=== PATIENT | female | born 1975 | race Caucasian/White ===

== ENCOUNTER 2016-09-19 16:57 | Emergency (ER) | payer MEDICAID ==
--- NOTE | 2016-09-19 17:25 | ER Document Report ---
ED Medical Screen (RME) - General Stated Complaint: LEFT EYE PROBLEM Time seen by provider: 17:24 Mode of Arrival: Ambulatory Information source: Patient Notes: 41 yo non contact lenses wearer female with pink left eye, eye pain, crusty in the am's for 5 days. No drops, her pcp saw it no rx. TRAVEL OUTSIDE OF THE [place] IN LAST 30 DAYS: No - Related Data Allergies/Adverse Reactions: No Known Allergies Allergy (Verified 03/16/14 19:22) Past Medical History - Past Medical History Cardiac Medical History: Reports: Hx Hypertension Denies: Hx Coronary Artery Disease, Hx DVT, Hx Pulmonary Embolism GI Medical History: Reports: Hx Gastroesophageal Reflux Disease Psychiatric Medical History: Reports: Hx Anxiety Past Surgical History: Reports: Hx Appendectomy, Hx Hysterectomy, Hx Tubal Ligation - Immunizations Immunizations up to date: No Hx Diphtheria, Pertussis, Tetanus Vaccination: No - unsure
[2016-09-19] MEDS ORDERED: TETRACAINE HCL 0.5% OPH SOLN 2 ML OS ONE (17:26)
--- NOTE | 2016-09-19 18:14 | ER Document Report ---
ED Eye Complaint - General Chief Complaint: Redness of Eye Stated Complaint: LEFT EYE PROBLEM Mode of Arrival: Ambulatory Information source: Patient Notes: 41-year-old female presents to emergency department complaining of left eye redness over the last 5 days. Patient reports onset of left eye redness 5 days ago with associated crusting and small amount of whitish drainage. Reports soreness and irritation but denies pain. Was seen by her primary care provider 3 days ago for regular scheduled visit and informed her provider about the eye symptoms but was not prescribed any medication. Denies fever, recent illness, vision changes, headache, photophobia, or nausea/vomiting. States does not wear contact lens and denies any obvious injury or foreign body. TRAVEL OUTSIDE OF THE [place] IN LAST 30 DAYS: No - HPI Onset: Last week Eye location: Left Injury: No Quality of pain: No pain Severity: Mild Contact lenses worn: No Associated symptoms: Redness, Matting - in the AM's, Blurred vision - in the AM' s. denies: Pain, Photophobia, Orbital swelling, Foreign body sensation, Double vision, Decreased vision, Loss of vision - Related Data Allergies/Adverse Reactions: No Known Allergies Allergy (Verified 09/19/16 17:25) Past Medical History - General Information source: Patient - Social History Smoking Status: Never Smoker Chew tobacco use (# tins/day): No Frequency of alcohol use: None Drug Abuse: None Lives with: Family - 6 Family History: Reviewed & Not Pertinent, Hypertension. denies: Arthritis, CAD , CVA, DM, Hyperlipidemia, Malignancy, Thyroid Disfunction Patient has suicidal ideation: No Patient has homicidal ideation: No - Past Medical History Cardiac Medical History: Reports: Hx Hypertension Denies: Hx Coronary Artery Disease, Hx DVT, Hx Pulmonary Embolism GI Medical History: Reports: Hx Gastroesophageal Reflux Disease Psychiatric Medical History: Reports: Hx Anxiety Past Surgical History: Reports: Hx Appendectomy, Hx Hysterectomy, Hx Tubal Ligation - Immunizations Hx Diphtheria, Pertussis, Tetanus Vaccination: Yes Review of Systems - Review of Systems Constitutional: No symptoms reported EENT: See HPI Cardiovascular: No symptoms reported Respiratory: No symptoms reported Gastrointestinal: No symptoms reported Genitourinary: No symptoms reported Female Genitourinary: No symptoms reported Musculoskeletal: No symptoms reported Skin: No symptoms reported Hematologic/Lymphatic: No symptoms reported Neurological/Psychological: No symptoms reported -: Yes All other systems reviewed and negative Physical Exam - Vital signs Vitals: Temp Pulse Resp BP Pulse Ox 97.9 F 82 20 121/73 99 09/19/16 17:25 09/19/16 17:25 09/19/16 17:25 09/19/16 17:25 09/19/16 17:25 Interpretation: Normal - General General appearance: Appears well, Alert In distress: None - HEENT Head: Normocephalic, Atraumatic Eyes: Normal. No: Periorbital edema Conjunctiva: Injected - left, Purulent discharge - left. No: Icteric Cornea: Normal. No: Superficial foreign body Extraocular movements intact: Yes Eyelashes: Normal Pupils: PERRL Corrective lenses worn: Yes Lids everted for exam: bilateral: Normal Anterior chamber: Normal Fundascopic: Normal Nerve palsy: No Visual mcqueen normal: Yes Ears: Normal External canal: Normal Tympanic membrane: Normal Sinus: Normal Nasal: Normal Mouth/Lips: Normal Mucous membranes: Normal, Moist Pharynx: Normal Neck: Normal - Respiratory Respiratory status: No respiratory distress Chest status: Nontender Breath sounds: Normal Chest palpation: Normal - Cardiovascular Rhythm: Regular Heart sounds: Normal auscultation Murmur: No Pulses: Normal: Radial Normal capillary refill: Yes - Extremities General upper extremity: Normal inspection, Normal ROM General lower extremity: Normal inspection, Normal ROM, Normal weight bearing - Neurological Neuro grossly intact: Yes Cognition: Normal Orientation: AAOx4 Valery Coma Scale Eye Opening: Spontaneous Valery Coma Scale Verbal: Oriented Valery Coma Scale Motor: Obeys Commands Rangely Coma Scale Total: 15 Speech: Normal Motor strength normal: LUE, RUE, LLE, RLE Sensory: Normal - Psychological Associated symptoms: Normal affect, Normal mood - Skin Skin Temperature: Warm Skin Moisture: Dry Skin Color: Normal Course - Re-evaluation Re-evalutation: 09/19/16 18:15 Patient hemodynamically stable, in no distress, afebrile. Presentation and physical exam findings suggestive of uncomplicated likely bacterial conjunctivitis at this time. Prescribed course of Polytrim eyedrops and patient agrees with home care, follow-up with PCP, and ED return precautions. - Vital Signs Vital signs: Temp Pulse Resp BP Pulse Ox 97.9 F 82 20 121/73 99 09/19/16 17:25 09/19/16 17:25 09/19/16 17:25 09/19/16 17:25 09/19/16 17:25 Discharge - Discharge Clinical Impression: Conjunctivitis Qualifiers: Conjunctivitis type: acute Acute conjunctivitis type: bacterial Laterality: left Qualified Code(s): H10.32 - Unspecified acute conjunctivitis, left eye Condition: Stable Disposition: HOME, SELF-CARE Instructions: Conjunctivitis ([facility]), Eyedrop Use ([facility]), Antibiotic Therapy ([facility]) Additional Instructions: Follow-up with your primary care provider and Ophthalmology in 1-2 days as discussed. Return to the Emergency Department for any worsening symptoms or concerns. Prescriptions: Polymyxin B Sulf/Trimethoprim [Polytrim Eye Drops] 1 drop OS Q4H 7 Days
[2016-09-19 19:45] VITALS: BP 124/72
== END 2016-09-19 19:19 | disposition home or self-care (01) ==
LOC: ER 16:57
DX: H10.32 Unspecified acute conjunctivitis, left eye (principal); B96.89 Other specified bacterial agents as the cause of diseases classified elsewhere; I10 Essential (primary) hypertension
CPT/HCPCS: 99282

== ENCOUNTER 2016-09-24 22:29 | Emergency (ER) | payer MEDICAID ==
--- NOTE | 2016-09-25 01:09 | ER Document Report ---
ED Eye Complaint - General Chief Complaint: Eye Problem Stated Complaint: EYE PAIN Time seen by provider: 01:09 Mode of Arrival: Ambulatory Information source: Patient TRAVEL OUTSIDE OF THE [place] IN LAST 30 DAYS: No - HPI Patient complains to provider of: right eye redness and drainage Onset: Other - 2-3 days Eye location: Right Injury: No Associated symptoms: Redness, Matting Notes: Patient is a 41-year-old female presenting to the emergency room complaining of right eye redness, swelling, drainage that's been going on for the past 2-3 days , she was previously seen in this ER on the eighth and diagnosed with conjunctivitis of the left eye, which has since resolved but now having similar symptoms in the right eye, states she attempted to use the Polytrim drops that were previously prescribed but they did not help this time - Related Data Allergies/Adverse Reactions: No Known Allergies Allergy (Verified 09/19/16 17:25) Past Medical History - General Information source: Patient - Social History Smoking Status: Never Smoker Frequency of alcohol use: None Drug Abuse: None Family History: Reviewed & Not Pertinent, Hypertension. denies: Arthritis, CAD , CVA, DM, Hyperlipidemia, Malignancy, Thyroid Disfunction - Past Medical History Cardiac Medical History: Reports: Hx Hypertension Denies: Hx Coronary Artery Disease, Hx DVT, Hx Pulmonary Embolism Renal/ Medical History: Denies: Hx Peritoneal Dialysis GI Medical History: Reports: Hx Gastroesophageal Reflux Disease Psychiatric Medical History: Reports: Hx Anxiety Past Surgical History: Reports: Hx Appendectomy, Hx Hysterectomy, Hx Tubal Ligation - Immunizations Immunizations up to date: No Hx Diphtheria, Pertussis, Tetanus Vaccination: Yes Review of Systems - Review of Systems Constitutional: No symptoms reported EENT: Eye discharge, Tearing, Other - eye redness Cardiovascular: No symptoms reported Respiratory: No symptoms reported Gastrointestinal: No symptoms reported Genitourinary: No symptoms reported Female Genitourinary: No symptoms reported Musculoskeletal: No symptoms reported Skin: No symptoms reported Hematologic/Lymphatic: No symptoms reported Neurological/Psychological: No symptoms reported -: Yes All other systems reviewed and negative Physical Exam - Vital signs Vitals: Temp Pulse Resp BP Pulse Ox 98.2 F 81 20 118/96 H 96 09/24/16 22:39 09/24/16 22:39 09/24/16 22:39 09/24/16 22:39 09/24/16 22:39 Interpretation: Normal - General General appearance: Appears well In distress: None Notes: - General General appearance: Appears well, Alert In distress: None - HEENT Head: Normocephalic, Atraumatic Eyes: Normal Conjunctiva: Injected, tearing, purulent discharge Extraocular movements intact: Yes Eyelashes: Normal Pupils: PERRL - Respiratory Respiratory status: No respiratory distress - Cardiovascular Rhythm: Regular - Abdominal Inspection: Normal - Back Back: Normal - Extremities General upper extremity: Normal inspection General lower extremity: Normal inspection - Neurological Neuro grossly intact: Yes Orientation: AAOx4 Valery Coma Scale Eye Opening: Spontaneous Valery Coma Scale Verbal: Oriented [place] Coma Scale Motor: Obeys Commands Valery Coma Scale Total: 15 - Psychological Associated symptoms: Normal affect, Normal mood - Skin Skin Temperature: Warm Skin Moisture: Dry Skin Color: Normal Course - Re-evaluation Re-evalutation: 09/25/16 01:13 Patient symptoms consistent with conjunctivitis, she was previously using Polytrim drops which don't seem to be helping, therefore drops will be changed to Ciloxan, she will be given a dose in the ER and the drops to go for home use , with instructions for follow-up or return if symptoms worsen, patient acknowledges understanding and agreement with this plan - Vital Signs Vital signs: Temp Pulse Resp BP Pulse Ox 98.2 F 81 20 118/96 H 96 09/24/16 22:39 09/24/16 22:39 09/24/16 22:39 09/24/16 22:39 09/24/16 22:39 Discharge - Discharge Clinical Impression: Conjunctivitis Qualifiers: Conjunctivitis type: acute Acute conjunctivitis type: bacterial Laterality: right Qualified Code(s): H10.31 - Unspecified acute conjunctivitis, right eye Condition: Stable Disposition: HOME, SELF-CARE Instructions: Eyedrop Use ([facility]), Conjunctivitis ([facility]) Additional Instructions: Follow up with your primary care provider in one to 2 days. Return to the emergency room immediately if symptoms worsen or any additional concerns.
[2016-09-25] MEDS ORDERED: CIPROFLOXACIN HCL 0.3% OPH SOLN 2.5 ML OD ONE (01:11)
[2016-09-25 01:35] VITALS: BP 132/68
== END 2016-09-25 01:34 | disposition home or self-care (01) ==
LOC: ER 22:29
DX: H10.31 Unspecified acute conjunctivitis, right eye (principal); I10 Essential (primary) hypertension
CPT/HCPCS: 99282; J3490

== ENCOUNTER 2017-02-07 12:46 | Emergency (ER) | payer MEDICAID ==
--- NOTE | 2017-02-07 13:42 | ER Document Report ---
ED GI/ - General Chief Complaint: Trouble Voiding Stated Complaint: ABDOMINAL PAIN Time Seen by Provider: 02/07/17 13:35 Mode of Arrival: Medic Information source: Patient Notes: This is a 41-year-old female with a history of hypertension, GERD and anxiety who presents with lower abdominal discomfort and difficulty urinating. She states that when she urinates "only a dribble" will come out. She denies any fevers or chills. She denies any nausea or vomiting. She did eat to him sandwiches for breakfast this morning without difficulty. Her last bowel movement was yesterday and was normal. TRAVEL OUTSIDE OF THE [place] IN LAST 30 DAYS: No - Related Data Allergies/Adverse Reactions: No Known Allergies Allergy (Verified 09/19/16 17:25) Past Medical History - General Information source: Patient - Social History Smoking Status: Unknown if Ever Smoked Family History: Reviewed & Not Pertinent, Hypertension. denies: Arthritis, CAD , CVA, DM, Hyperlipidemia, Malignancy, Thyroid Disfunction - Past Medical History Cardiac Medical History: Reports: Hx Hypertension Denies: Hx Coronary Artery Disease, Hx DVT, Hx Pulmonary Embolism Renal/ Medical History: Denies: Hx Peritoneal Dialysis GI Medical History: Reports: Hx Gastroesophageal Reflux Disease Psychiatric Medical History: Reports: Hx Anxiety Past Surgical History: Reports: Hx Appendectomy, Hx Hysterectomy, Hx Tubal Ligation - Immunizations Immunizations up to date: No Hx Diphtheria, Pertussis, Tetanus Vaccination: Yes Review of Systems - Review of Systems Constitutional: No symptoms reported. denies: Chills, Fever EENT: No symptoms reported Cardiovascular: No symptoms reported. denies: Chest pain Respiratory: No symptoms reported. denies: Cough Gastrointestinal: See HPI, Abdominal pain. denies: Diarrhea, Nausea, Vomiting, Constipation Genitourinary: See HPI, Frequency, Urgency Musculoskeletal: No symptoms reported Skin: No symptoms reported Hematologic/Lymphatic: No symptoms reported Neurological/Psychological: No symptoms reported Physical Exam - Vital signs Vitals: Temp Pulse Resp BP Pulse Ox 98.6 F 91 16 131/86 H 94 02/07/17 12:55 02/07/17 12:55 02/07/17 12:55 02/07/17 12:55 02/07/17 12:55 - Notes Notes: PHYSICAL EXAMINATION: GENERAL: Well-appearing, well-nourished and in no acute distress. HEAD: Atraumatic, normocephalic. EYES: Pupils equal round and reactive to light, extraocular movements intact, sclera anicteric, conjunctiva are normal. ENT: nares patent, oropharynx clear without exudates. Moist mucous membranes. NECK: Normal range of motion, supple without lymphadenopathy LUNGS: Breath sounds clear to auscultation bilaterally and equal. No wheezes rales or rhonchi. HEART: Regular rate and rhythm without murmurs ABDOMEN: Soft, mild suprapubic TTP, normoactive bowel sounds. No guarding, no rebound. No masses appreciated. EXTREMITIES: Normal range of motion NEUROLOGICAL: Cranial nerves grossly intact. No gross focal motor or sensory deficits appreciated. PSYCH: Normal mood, normal affect. SKIN: Warm, Dry, normal turgor, no rashes or lesions noted. Course - Re-evaluation Re-evalutation: 02/07/17 14:21 Urinalysis is consistent with urinary tract infection. Patient is given a dose of IM Rocephin in the ER. She is instructed to take antibiotics as prescribed and follow up with PCP this week. Strict return precautions discussed. Patient comfortable with plan. - Vital Signs Vital signs: Temp Pulse Resp BP Pulse Ox 98.6 F 91 16 131/86 H 94 02/07/17 12:55 02/07/17 12:55 02/07/17 12:55 02/07/17 12:55 02/07/17 12:55 - Laboratory Laboratory results interpreted by me: 02/07/17 13:55 Urine Protein 100 H Urine Blood SMALL H Urine Urobilinogen 2.0 H Ur Leukocyte Esterase LARGE H Discharge - Discharge Clinical Impression: UTI (urinary tract infection) Qualifiers: Urinary tract infection type: site unspecified Hematuria presence: without hematuria Qualified Code(s): N39.0 - Urinary tract infection, site not specified Condition: Stable Disposition: HOME, SELF-CARE Instructions: Urinary Tract Infection ([facility]), Trimethoprim-Sulfa ([facility]) Prescriptions: Phenazopyridine HCl [Pyridium 200 mg Tablet] 200 mg PO TID PRN #6 tablet PRN Reason: Sulfamethoxazole/Trimethoprim [Bactrim Ds Tablet] 1 each PO BID #20 tablet
[2017-02-07 14:10] LABS: APPEARANCE,URINE CLOUDY; BILIRUBIN,URINE NEGATIVE (NEGATIVE); GLUCOSE, URINE NEGATIVE (NEGATIVE); KETONES,URINE NEGATIVE (NEGATIVE); LEUKOCYTE ESTERASE,URINE LARGE (NEGATIVE); NITRITE,URINE NEGATIVE (NEGATIVE); PROTEIN,URINE 100 mg/dL (NEGATIVE); URINE SPECIFIC GRAVITY 1.015
[2017-02-07] MEDS ORDERED: PHENAZOPYRIDINE HCL 200 MG TABLET PO ONE (14:17)
[2017-02-07] MEDS ORDERED: LIDOCAINE 1% INJ-PF (10 MG/ML) 30 ML SDV INFIL ONE (14:17)
[2017-02-07] MEDS ORDERED: CEFTRIAXONE INJ 1000 MG VIAL IM ONE (14:31)
[2017-02-07 15:35] VITALS: BP 129/87
== END 2017-02-07 15:00 | disposition home or self-care (01) ==
LOC: ER 12:46
DX: N39.0 Urinary tract infection, site not specified (principal); R39.198 Other difficulties with micturition; K21.9 Gastro-esophageal reflux disease without esophagitis; F41.9 Anxiety disorder, unspecified; R10.30 Lower abdominal pain, unspecified
CPT/HCPCS: 99284; 96372; 87086; 87088; 81001; 87186; J3490 ×2; J0696

== ENCOUNTER 2017-02-25 23:48 | Emergency (ER) | payer MEDICAID ==
[2017-02-26] MEDS ORDERED: IPRATROPIUM/ALBUTEROL 0.5-2.5 MG/3 ML AMPUL NEB ONE ×2 (00:13)
[2017-02-26] MEDS ORDERED: MAGNESIUM SULFATE/D5W 100 ML IV PRN (00:13)
[2017-02-26] MEDS ORDERED: NORMAL SALINE 1000 ML 1,000 ML IV ONE (00:15)
--- NOTE | 2017-02-26 00:18 | ER Document Report ---
ED Respiratory Problem - General Chief Complaint: Breathing Difficulty Stated Complaint: BREATHING DIFFICULTY Time Seen by Provider: 02/26/17 00:07 Notes: Patient is a 41-year-old female who comes emergency department for chief complaint of difficulty breathing, she comes by EMS, received a DuoNeb and 125 mg of Solu-Medrol and route, patient states she already is somewhat improved after the first treatment. Patient states that she has been coughing for 1 month, states that she worsened significantly over the past 2 days with productive sputum and increased difficulty breathing. Patient states she has episodes where she coughs so hard she vomits. She denies fever, abdominal pain , chest pain when she is not coughing, she denies smoking, stopped smoking 7 years ago. She denies history of asthma, COPD, or other respiratory abnormality. TRAVEL OUTSIDE OF THE [place] IN LAST 30 DAYS: No - Related Data Allergies/Adverse Reactions: No Known Allergies Allergy (Verified 09/19/16 17:25) Past Medical History - General Information source: Patient - Social History Smoking Status: Never Smoker Frequency of alcohol use: None Drug Abuse: None Lives with: Family Family History: Reviewed & Not Pertinent, Hypertension. denies: Arthritis, CAD , CVA, DM, Hyperlipidemia, Malignancy, Thyroid Disfunction - Past Medical History Cardiac Medical History: Reports: Hx Hypertension Denies: Hx Coronary Artery Disease, Hx DVT, Hx Pulmonary Embolism Renal/ Medical History: Denies: Hx Peritoneal Dialysis GI Medical History: Reports: Hx Gastroesophageal Reflux Disease Psychiatric Medical History: Reports: Hx Anxiety Past Surgical History: Reports: Hx Appendectomy, Hx Hysterectomy, Hx Tubal Ligation - Immunizations Immunizations up to date: No Hx Diphtheria, Pertussis, Tetanus Vaccination: Yes Review of Systems - Review of Systems Constitutional: No symptoms reported EENT: No symptoms reported Cardiovascular: No symptoms reported Respiratory: See HPI Gastrointestinal: No symptoms reported Genitourinary: No symptoms reported Female Genitourinary: No symptoms reported Musculoskeletal: No symptoms reported Skin: No symptoms reported Hematologic/Lymphatic: No symptoms reported Neurological/Psychological: No symptoms reported Physical Exam - Vital signs Vitals: Resp Pulse Ox 17 94 02/25/17 23:59 02/25/17 23:59 Interpretation: Normal - General General appearance: Alert In distress: None - HEENT Head: Normocephalic, Atraumatic Eyes: Normal Conjunctiva: Normal Extraocular movements intact: Yes Eyelashes: Normal Pupils: PERRL Mouth/Lips: Normal Mucous membranes: Normal Pharynx: Normal Neck: Normal - Respiratory Respiratory status: No respiratory distress. No: Labored, Tachypnea Chest status: Nontender Breath sounds: Decreased air movement, Nonproductive cough, Rhonchi, Wheezing - expiratory wheezes throughout Chest palpation: Normal - Cardiovascular Rhythm: Regular Heart sounds: Normal auscultation Murmur: No - Abdominal Inspection: Normal Distension: No distension Bowel sounds: Normal Tenderness: Nontender Organomegaly: No organomegaly - Back Back: Normal, Nontender - Extremities General upper extremity: Normal inspection, Nontender, Normal color, Normal ROM , Normal temperature General lower extremity: Normal inspection, Nontender, Normal color, Normal ROM , Normal temperature, Normal weight bearing. No: Nichelle's sign - Neurological Neuro grossly intact: Yes Cognition: Normal Orientation: AAOx4 Valery Coma Scale Eye Opening: Spontaneous Fay Coma Scale Verbal: Oriented Valery Coma Scale Motor: Obeys Commands Valery Coma Scale Total: 15 Speech: Normal Motor strength normal: LUE, RUE, LLE, RLE Sensory: Normal - Psychological Associated symptoms: Normal affect, Normal mood - Skin Skin Temperature: Warm Skin Moisture: Dry Skin Color: Normal Course - Re-evaluation Re-evalutation: Patient probably with loud expiratory wheezes and a few scattered rhonchi, mild hypoxia, appears mildly uncomfortable. No overt tachypnea, no labored breathing. After treatments with duo nebs, magnesium, IV fluids, patient significantly improved. Wheezing almost completely resolved. Chest x-ray unremarkable, laboratory workup unremarkable with eosinophilic shift. Patient states he feels much improved. Patient was ambulated with pulse oxygenation and averaged in the lower to mid 90s. No difficulty speaking, no labored breathing, she performed this quite well. Patient will be discharged with an inhaler, prescriptions, after discussion patient will be covered for potential pneumonia with azithromycin because of ongoing symptoms for 1 month. Patient is to follow -up with primary care and return immediately if she worsens in any way. Patient states understanding and agreement - Vital Signs Vital signs: Temp Pulse Resp BP Pulse Ox 105 H 18 131/83 H 95 02/26/17 03:39 02/26/17 04:17 02/26/17 04:17 02/26/17 04:17 - Laboratory Result Diagrams: 02/26/17 00:45 02/26/17 00:45 Laboratory results interpreted by me: 02/26/17 02/26/17 00:45 00:45 Eosinophils % 9.2 H Absolute Eosinophils 0.7 H Potassium 3.3 L Glucose 179 H Discharge - Discharge Clinical Impression: Wheezing, Shortness of breath, Bronchitis Condition: Stable Disposition: HOME, SELF-CARE Additional Instructions: Take the prednisone as directed. Use the inhaler as directed. Take the azithromycin antibiotic as prescribed. Follow up with primary care. Return if you worsen in any way - difficulty breathing, fever, or any other concerning symptoms. Prescriptions: Albuterol Sulfate [Proair HFA Inhalation Aerosol 8.5 gm MDI] 2 puff IH Q4H PRN # 1 mdi PRN Reason: Azithromycin [Zithromax 250 mg Tablet] 250 mg PO ASDIR PRN #6 tablet PRN Reason: Prednisone 20 mg PO DAILY #15 tablet
--- NOTE | 2017-02-26 00:43 | RADIOLOGY REPORT (SQ) ---
EXAM DESCRIPTION: CHEST PA/LAT COMPLETED DATE/TIME: 02/26/2017 12:23 am REASON FOR STUDY: productive cough, shortness of breath COMPARISON: 10/17/2015. EXAM PARAMETERS: NUMBER OF VIEWS: two views TECHNIQUE: Digital Frontal and Lateral radiographic views of the chest acquired. RADIATION DOSE: NA LIMITATIONS: none FINDINGS: LUNGS AND PLEURA: No opacities, masses or pneumothorax. No pleural effusion. Moderate rickie g volume. MEDIASTINUM AND HILAR STRUCTURES: No masses or contour abnormalities. HEART AND VASCULAR STRUCTURES: Heart normal size. No evidence for failure. BONES: No acute findings. Mild disc desiccation. HARDWARE: None in the chest. OTHER: No other significant finding. IMPRESSION: Moderate lung volumes, stable. Otherwise, no acute cardiopulmonary findings. TECHNICAL DOCUMENTATION: JOB ID: [id number] [employer]- All Rights Reserved
[2017-02-26 01:02] LABS: ABSOLUTE EOSINOPHILS # (AUTO) 0.7 10^3/uL (0.0-0.6); ABSOLUTE LYMPHOCYTES (AUTO) 1.7 10^3/uL (0.5-4.7); ABSOLUTE MONOCYTES (AUTO) 0.7 10^3/uL (0.1-1.4); ABSOLUTE NEUT (AUTO) 4.1 10^3/uL (1.7-8.2); BASOPHILS % (AUTO) 0.7 % (0-2); EOSINOPHILS % (AUTO) 9.2 % (0-6); HEMATOCRIT 42.3 % (36.0-47.0); HEMOGLOBIN 13.8 g/dL (12.0-15.5); HGB HCT DIFFERENCE -0.9; LYMPHOCYTES % (AUTO) 23.4 % (13-45); MEAN CORPUSCULAR HEMOGLOBIN 27.9 pg (27.0-33.4); MEAN CORPUSCULAR HGB CONC 32.7 g/dL (32.0-36.0); MEAN CORPUSCULAR VOLUME 86 fl (80-97); MONOCYTES % (AUTO) 9.7 % (3-13); RED BLOOD COUNT 4.94 10^6/uL (3.72-5.28); RED CELL DISTRIBUTION WIDTH 13.2 % (11.5-14.0); WHITE BLOOD COUNT 7.2 10^3/uL (4.0-10.5)
[2017-02-26 01:18] LABS: ALANINE AMINOTRANSFERASE 32 U/L (9-52); ALBUMIN 3.9 g/dL (3.5-5.0); ALKALINE PHOSPHATASE 79 U/L (38-126); ANION GAP 13 (5-19); ASPARTATE AMINO TRANSFERASE 18 U/L (14-36); BILIRUBIN,DIRECT 0.3 mg/dL (0.0-0.4); BILIRUBIN,TOTAL 0.6 mg/dL (0.2-1.3); BLOOD UREA NITROGEN 7 mg/dL (7-20); CALCIUM 8.7 mg/dL (8.4-10.2); CARBON DIOXIDE 22 mmol/L (22-30); CHLORIDE 103 mmol/L (98-107); CREATININE RESULT 0.93 mg/dL (0.52-1.25); GLUCOSE 179 mg/dL (75-110); POTASSIUM 3.3 mmol/L (3.6-5.0); SODIUM 138.3 mmol/L (137-145); TOTAL PROTEIN 7.4 g/dL (6.3-8.2)
[2017-02-26] MEDS ORDERED: ALBUTEROL SULFATE HFA (90 MCG/PUFF) 8 GM MDI (1 MDI/ER DISP) IH ONE (03:48)
[2017-02-26] MEDS ORDERED: HYDROCODONE/ACETAMINOPHEN 5-325 MG 6 TAB/DSPK PO PRN (03:50)
[2017-02-26 04:29] VITALS: BP 131/83
== END 2017-02-26 04:29 | disposition home or self-care (01) ==
LOC: ER 23:48
DX: J40 Bronchitis, not specified as acute or chronic (principal); R06.2 Wheezing; R06.02 Shortness of breath; Z87.891 Personal history of nicotine dependence
CPT/HCPCS: 94640 ×2; 99285; 96361; 96365; 36415; 84703; 85025; 80053; 71020; J3475; J7030; J3490; J7620

== ENCOUNTER 2017-04-01 22:04 | Emergency (ER) | payer MEDICAID ==
[2017-04-01 22:34] VITALS: BP 140/88
== END 2017-04-02 00:59 | disposition left against medical advice (07) ==
LOC: ER 22:04
DX: Z53.21 Procedure and treatment not carried out due to patient leaving prior to being seen by health care provider (principal)

== ENCOUNTER 2017-04-07 15:30 | Emergency (ER) | payer MEDICAID ==
[2017-04-07] MEDS ORDERED: PREDNISONE 20 MG TABLET PO ONE (16:09)
[2017-04-07] MEDS ORDERED: IPRATROPIUM/ALBUTEROL 0.5-2.5 MG/3 ML AMPUL NEB ONE (16:09)
--- NOTE | 2017-04-07 16:10 | ER Document Report ---
HPI - HPI Patient complains to provider of: cough Onset: Last week Onset/Duration: Persistent Quality of pain: No pain Pain Level: 0 Context: Patient presents complaining of occasionally productive cough for the past week. Patient states she has had some wheezing as well. Patient has been using inhaler at home without improvement of her symptoms. Pt denies any recent travel or immobilization. Associated Symptoms: Productive cough. denies: Chest pain, Fever Exacerbated by: Denies Relieved by: Denies Similar symptoms previously: Yes Recently seen / treated by doctor: No - ROS ROS below otherwise negative: Yes Systems Reviewed and Negative: Yes All other systems reviewed and negative - CONSTITUTIONAL Constitutional: DENIES: Fever, Chills - CARDIOVASCULAR Cardiovascular: DENIES: Chest pain - RESPIRATORY Respiratory: REPORTS: Coughing - GASTROINTESTINAL Gastrointestinal: DENIES: Abdominal Pain, Patient vomiting - REPRODUCTIVE LMP: 03/13/17 Reproductive: DENIES: : - MUSCULOSKELETAL Musculoskeletal: DENIES: Back Pain - DERM Skin Color: Normal Skin Problems: None Past Medical History - General Information source: Patient - Social History Smoking Status: Former Smoker Frequency of alcohol use: None Drug Abuse: None Occupation: none Lives with: Family Family History: Reviewed & Not Pertinent, Hypertension. denies: Arthritis, CAD , CVA, DM, Hyperlipidemia, Malignancy, Thyroid Disfunction Patient has suicidal ideation: No Patient has homicidal ideation: No - Past Medical History Cardiac Medical History: Reports: Hx Hypertension Denies: Hx Coronary Artery Disease, Hx DVT, Hx Pulmonary Embolism Renal/ Medical History: Denies: Hx Peritoneal Dialysis GI Medical History: Reports: Hx Gastroesophageal Reflux Disease Psychiatric Medical History: Reports: Hx Anxiety Past Surgical History: Reports: Hx Appendectomy, Hx Hysterectomy, Hx Tubal Ligation - Immunizations Immunizations up to date: No Hx Diphtheria, Pertussis, Tetanus Vaccination: Yes Vertical Provider Document - CONSTITUTIONAL Agree With Documented VS: Yes Exam Limitations: No Limitations General Appearance: WD/WN, No Apparent Distress - INFECTION CONTROL TRAVEL OUTSIDE OF THE [place] IN LAST 30 DAYS: No - HEENT HEENT: Atraumatic, Normal ENT Exam, Normocephalic - NECK Neck: Normal Inspection, Supple. negative: Lymphadenopathy-Left, Lymphadenopathy-Right - RESPIRATORY Respiratory: No Respiratory Distress, Chest Non-Tender, Wheezing O2 Sat by Pulse Oximetry: 98 - CARDIOVASCULAR Cardiovascular: Regular Rate, Regular Rhythm, No Murmur - BACK Back: Normal Inspection - MUSCULOSKELETAL/EXTREMETIES Musculoskeletal/Extremeties: MAEW - NEURO Level of Consciousness: Awake, Alert, Appropriate Motor/Sensory: No Motor Deficit - DERM Integumentary: Warm, Dry, No Rash Course - Re-evaluation Re-evalutation: 04/07/17 17:50 Patient with increased air movement and scattered wheezing. - Vital Signs Vital signs: Temp Pulse Resp BP Pulse Ox 97.9 F 74 24 H 114/65 98 04/07/17 15:48 04/07/17 15:48 04/07/17 15:48 04/07/17 15:48 04/07/17 15:48 - Diagnostic Test Radiology reviewed: Reports reviewed Discharge - Discharge Clinical Impression: Wheezing Upper respiratory infection Qualifiers: URI type: unspecified URI Qualified Code(s): J06.9 - Acute upper respiratory infection, unspecified Condition: Stable Disposition: HOME, SELF-CARE Additional Instructions: Return immediately for any new or worsening symptoms Followup with your primary care provider, call tomorrow to make a followup appointment Use your inhaler that you have at home as prescribed UPPER RESPIRATORY ILLNESS: You have a viral infection of the respiratory passages -- a "cold." This common infection causes nasal congestion, drainage, and often sore throat and cough. It is highly contagious. The disease usually lasts about 10 to 14 days. There is no "cure" for the viral infection -- it must run its course. If there is a complication, such as bacterial infection in the nose, sinuses, middle ear, or bronchial tubes, antibiotics may be required. The antibiotics won't affect the virus. Drink plenty of fluids. A humidifier may help. An expectorant medication or decongestant may make you more comfortable. Use acetaminophen or ibuprofen for fever or aches. See the doctor if fever persists over two days, if there is any significant worsening of your symptoms, or if you simply fail to improve as expected. BRONCHOSPASM: You have tightness in the bronchial tubes, called bronchospasm. This often occurs with bronchial infections. Allergies, inhaled chemicals, and polluted or cold air can also provoke bronchospasm. It's more likely in patients with asthma in the family. Emergency treatment of bronchospasm may include adrenaline shots or bronchodilator aerosol. You may feel lightheaded and have a rapid pulse for an hour or two. Rest and get plenty of fluids. At home, we'll treat you with a bronchodilator inhaler. Antibiotics and corticosteroids may be required for some patients. Until you recover, avoid chemical fumes, dusts, pollens, and exercising in very cold or dry air. If you smoke, stop now!! If you develop a fever, increased wheezing, chest pain, or severe shortness of breath, you should contact the doctor immediately. INHALED BRONCHODILATORS: You have received a treatment of and/or prescription for an inhaled bronchodilator -- a medication which stimulates the airways in the lung to dilate. This improves the flow of air in asthma, bronchitis, and emphysema. These medicines have some similarity to adrenaline, and can cause similar side effects: shakiness, racing heart, and a sense of nervousness. These side effects decrease with time. Contact your doctor if these side effects are severe. Do not over-use the medicine. Too-frequent use of the inhaler may make it ineffective. Call your doctor if the inhaler is not controlling your symptoms at the prescribed doses. STEROID MEDICATION: You have been given an injection of or oral medicine of the cortisone/ steroid class. This medication is used to control inflammation or allergy. Stevenson t is usually only given for a short period of time, until the acute process subsides. There are usually no side effects from short-term use of cortisone-like medications. Some persons feel an increased sense of well-being and are not sleepy at bedtime. Long-term use of cortisone medications is best avoided, unless required for a severe condition. If your condition does not remit, or relapses after the course of corticosteroid medication, you should consult your physician. USE OF ACETAMINOPHEN (Tylenol): Acetaminophen may be taken for pain relief or fever control. It's much safer than aspirin, offering a wider range of "safe" dosages. It is safe during . Some brand names are Tylenol, Panadol, Datril, Anacin 3, Tempra, and Liquiprin. Acetaminophen can be repeated every four hours. The following are maximum recommended dosages: >89 pounds or adults 650 mg to 900 mg Acetaminophen can be repeated every four hours. Maximum dose not to exceed 4000 mg a day. FOLLOW-UP CARE: If you have been referred to a physician for follow-up care, call the physician s office for an appointment as you were instructed or within the next two days. If you experience worsening or a significant change in your symptoms, notify the physician immediately or return to the Emergency Department at any time for re-evaluation. Prescriptions: Benzonatate [Tessalon Perle 100 mg Capsule] 100 mg PO Q8HP PRN #20 cap PRN Reason: Prednisone [Deltasone 20 mg Tablet] 3 tab PO DAILY 5 Days Referrals: DEBBY MORALES MD [Primary Care Provider] - Follow up tomorrow
[2017-04-07] MEDS: ALBUTEROL SULFATE 0.083% NEB 2.5 MG/3 ML AMPUL NEB SCH ×2 (16:48→17:10)
--- NOTE | 2017-04-07 17:32 | RADIOLOGY REPORT (SQ) ---
EXAM DESCRIPTION: CHEST PA/LAT COMPLETED DATE/TIME: 04/07/2017 5:05 pm REASON FOR STUDY: cough COMPARISON: 02/26/2017 EXAM PARAMETERS: NUMBER OF VIEWS: two views TECHNIQUE: Digital Frontal and Lateral radiographic views of the chest acquired. RADIATION DOSE: NA LIMITATIONS: none FINDINGS: LUNGS AND PLEURA: No opacities, masses or pneumothorax. No pleural effusion. MEDIASTINUM AND HILAR STRUCTURES: No masses or contour abnormalities. HEART AND VASCULAR STRUCTURES: Heart normal size. No evidence for failure. BONES: No acute findings. HARDWARE: None in the chest. OTHER: No other significant finding. IMPRESSION: NO SIGNIFICANT RADIOGRAPHIC FINDING IN THE CHEST. TECHNICAL DOCUMENTATION: JOB ID: [id number] [employer]- All Rights Reserved
[2017-04-07 18:01] VITALS: BP 123/52
== END 2017-04-07 18:00 | disposition home or self-care (01) ==
LOC: ER 15:30
DX: J06.9 Acute upper respiratory infection, unspecified (principal); R06.2 Wheezing; R05 Cough; Z87.891 Personal history of nicotine dependence
CPT/HCPCS: 94640 ×2; 99283; 71020; J7512; J7620

== ENCOUNTER 2017-06-10 10:31 | Emergency (ER) | payer MEDICAID ==
[2017-06-10 10:57] VITALS: BP 120/78
[2017-06-10] MEDS ORDERED: ALBUTEROL SULFATE HFA (90 MCG/PUFF) 8 GM MDI (1 MDI/ER DISP) IH ONE (11:23)
--- NOTE | 2017-06-10 11:38 | ER Document Report ---
ED General - General Chief Complaint: Shortness Of Breath Stated Complaint: DIFFICULTY BREATHING Time Seen by Provider: 06/10/17 11:13 Notes: 42-year-old female presents emergency department complaining that for the past several months she has been having difficulty breathing. States that on and off for the past several months approximately every 2 weeks she will develop chest congestion and a cough as well as rhinorrhea, she will use her inhaler and that it will resolve. Patient states that several times she has been " close to having pneumonia" and would like to be checked again today to make sure this is just bronchitis. Denies fevers, admits productive cough, denies chills, denies chest pain, denies sore throat or earache. TRAVEL OUTSIDE OF THE [place] IN LAST 30 DAYS: No - Related Data Allergies/Adverse Reactions: No Known Allergies Allergy (Verified 06/10/17 10:57) Past Medical History - General Information source: Patient - Social History Smoking Status: Never Smoker Chew tobacco use (# tins/day): No Frequency of alcohol use: None Drug Abuse: None Lives with: Family Family History: Reviewed & Not Pertinent, Hypertension. denies: Arthritis, CAD , CVA, DM, Hyperlipidemia, Malignancy, Thyroid Disfunction Patient has suicidal ideation: No Patient has homicidal ideation: No - Past Medical History Cardiac Medical History: Reports: Hx Hypertension Denies: Hx Coronary Artery Disease, Hx DVT, Hx Pulmonary Embolism Renal/ Medical History: Denies: Hx Peritoneal Dialysis GI Medical History: Reports: Hx Gastroesophageal Reflux Disease Psychiatric Medical History: Reports: Hx Anxiety, Hx Depression - Anxiety Past Surgical History: Reports: Hx Appendectomy, Hx Hysterectomy, Hx Tubal Ligation - Immunizations Immunizations up to date: No Hx Diphtheria, Pertussis, Tetanus Vaccination: Yes Review of Systems - Review of Systems Constitutional: No symptoms reported. denies: Chills, Diaphoresis, Fever EENT: See HPI, Nose congestion, Nose discharge Cardiovascular: No symptoms reported Respiratory: See HPI, Cough, Wheezing -: Yes All other systems reviewed and negative Physical Exam - Vital signs Vitals: Temp Pulse Resp BP Pulse Ox 97.7 F 69 18 120/78 96 06/10/17 10:54 06/10/17 10:54 06/10/17 10:54 06/10/17 10:54 06/10/17 10:54 Interpretation: Normal - Notes Notes: GENERAL: Alert, interacts well. No acute distress. HEAD: Normocephalic, atraumatic EYES: Pupils equal, round and reactive to light, extraocular movements intact. ENT: Oral mucosa moist, tongue midline. Nares patent, no nasal septal hematoma, TMs intact. Clear rhinorrhea, cobblestoning in the posterior oropharynx NECK: Full range of motion, supple, trachea midline. LUNGS: Clear to auscultation bilaterally, n trace wheezes, no rales rhonchi, no respiratory distress. HEART: Regular rate and rhythm, no murmurs, gallops, rubs. ABDOMEN: Soft, nontender, nondistended, bowel sounds present in all 4 quadrants. EXTREMITIES: Moves all 4 extremities spontaneously, no edema, radial and dorsalis pedis pulses 2/4 bilaterally. No cyanosis. NEUROLOGICAL: Alert and oriented x3, normal speech. PSYCH: Normal mood, normal affect. SKIN: Warm, Dry, normal turgor, no rashes or lesions noted. Course - Re-evaluation Re-evalutation: 06/10/17 11:37 Consistent with allergic rhinitis, counseled regarding use of daily antihistamine such as Claritin or Zyrtec, counseled to continue using her albuterol inhaler 2 puffs every 4 hours as needed. No indication for steroids at this time as there is only mild wheezing. No indication for x-ray as her lungs are otherwise clear, no evidence of pneumonia, no respiratory compromise. Discharged home. - Vital Signs Vital signs: Temp Pulse Resp BP Pulse Ox 97.7 F 69 18 120/78 96 06/10/17 10:54 06/10/17 10:54 06/10/17 10:54 06/10/17 10:54 06/10/17 10:54 Discharge - Discharge Clinical Impression: Acute wheezy bronchitis Allergic rhinitis Qualifiers: Chronicity: acute Allergic rhinitis trigger: unspecified Allergic rhinitis seasonality: seasonal Qualified Code(s): J30.2 - Other seasonal allergic rhinitis Condition: Stable Disposition: HOME, SELF-CARE Additional Instructions: Please use your inhaler 2 puffs every 4 hours as needed for wheezing. This is your albuterol inhaler not the purple Advair Diskus inhaler. Use a daily antihistamine such as Zyrtec or Claritin. This is available over- the-counter. Follow the instructions on the box. Use it for at least a month. Return for fever or worsening of your cough.
== END 2017-06-10 11:40 | disposition home or self-care (01) ==
LOC: ER 10:31
DX: J30.2 Other seasonal allergic rhinitis (principal); J20.9 Acute bronchitis, unspecified; R05 Cough; I10 Essential (primary) hypertension; R06.2 Wheezing
CPT/HCPCS: 99284; J3490

== ENCOUNTER 2017-07-02 10:00 | Emergency (ER) | payer MEDICAID ==
[2017-07-02] MEDS ORDERED: PREDNISONE 20 MG TABLET PO ONE (10:26)
[2017-07-02] MEDS: IPRATROPIUM/ALBUTEROL 0.5-2.5 MG/3 ML AMPUL NEB SCH ×2 (10:37→11:00)
--- NOTE | 2017-07-02 10:56 | RADIOLOGY REPORT (SQ) ---
EXAM DESCRIPTION: CHEST PA/LAT COMPLETED DATE/TIME: 07/02/2017 10:45 am REASON FOR STUDY: 19, COUGH COMPARISON: 04/07/2017 EXAM PARAMETERS: NUMBER OF VIEWS: two views TECHNIQUE: Digital Frontal and Lateral radiographic views of the chest acquired. RADIATION DOSE: NA LIMITATIONS: none FINDINGS: LUNGS AND PLEURA: No opacities, masses or pneumothorax. No pleural effusion. MEDIASTINUM AND HILAR STRUCTURES: No masses or contour abnormalities. HEART AND VASCULAR STRUCTURES: Heart normal size. No evidence for failure. BONES: No acute findings. HARDWARE: None in the chest. OTHER: No other significant finding. IMPRESSION: NO SIGNIFICANT RADIOGRAPHIC FINDING IN THE CHEST. TECHNICAL DOCUMENTATION: JOB ID: [id number] [email or web address]- All Rights Reserved
--- NOTE | 2017-07-02 11:01 | ER Document Report ---
ED Respiratory Problem - General Chief Complaint: Productive Cough Stated Complaint: COUGH Time Seen by Provider: 07/02/17 10:10 Notes: 42-year-old female who presents today stating that she has had 2 months of runny nose, congestion, and cough that has been intermittent. She states yellow mucus. She denies any fevers, vomiting, chest pain, calf pain or leg swelling. She did see her primary care physician around 2 months ago and was started on albuterol and Advair. Patient states she does not smoke currently. She was a previous smoker. She denies any past medical history other than high blood pressure. TRAVEL OUTSIDE OF THE [place] IN LAST 30 DAYS: No - HPI Patient complains to provider of: Cough Onset: Other - See above Duration: Continuous Quality of pain: No pain Severity: Mild Pain Level: 1 Short of Breath: Mild Chest pain/discomfort: Center Cough: Productive Sputum amount: Small Sputum color: Yellow At home treatment: Bronchodilators, Oral steroids EMS treatments: Bronchodilators Associated symptoms: Other - See above Similar symptoms previously: Yes Recently seen / treated by doctor: No - Related Data Allergies/Adverse Reactions: No Known Allergies Allergy (Verified 06/10/17 10:57) Home Medications: Current Home Medications Fluticasone/Salmeterol [Advair 250-50 Diskus 14 Dose/Diskus] 2 puff IH PRN PRN 07/02/17 [History] Past Medical History - General Information source: Patient - Social History Smoking Status: Never Smoker Cigarette use (# per day): No Chew tobacco use (# tins/day): No Smoking Education Provided: No Frequency of alcohol use: None Drug Abuse: None Family History: Reviewed & Not Pertinent, Hypertension. denies: Arthritis, CAD , CVA, DM, Hyperlipidemia, Malignancy, Thyroid Disfunction - Past Medical History Cardiac Medical History: Reports: Hx Hypertension Denies: Hx Coronary Artery Disease, Hx DVT, Hx Pulmonary Embolism Renal/ Medical History: Denies: Hx Peritoneal Dialysis GI Medical History: Reports: Hx Gastroesophageal Reflux Disease Psychiatric Medical History: Reports: Hx Anxiety, Hx Depression - Anxiety Past Surgical History: Reports: Hx Appendectomy, Hx Hysterectomy, Hx Tubal Ligation - Immunizations Immunizations up to date: No Hx Diphtheria, Pertussis, Tetanus Vaccination: Yes Review of Systems - Review of Systems Constitutional: denies: Fever EENT: denies: Eye discharge, Nose discharge, Sinus pressure Cardiovascular: denies: Chest pain, Palpitations Respiratory: Cough, Short of breath, Wheezing. denies: Hemoptysis Gastrointestinal: denies: Vomiting Genitourinary: denies: Dysuria Musculoskeletal: denies: Leg swelling Skin: Other - no hives. denies: Rash Neurological/Psychological: Other - no slurred speech -: Yes All other systems reviewed and negative Physical Exam - Vital signs Vitals: Temp Pulse Resp BP Pulse Ox 98.8 F 90 18 147/84 H 97 07/02/17 10:06 07/02/17 10:06 07/02/17 10:06 07/02/17 10:06 07/02/17 10:06 Notes: Reviewed vital signs and nursing note as charted by RN. CONSTITUTIONAL: Alert and oriented and responds appropriately to questions. Well -appearing; well-nourished HEAD: Normocephalic; atraumatic EYES: PERRL; Conjunctivae clear, sclerae non-icteric ENT: Normal nose; bilateral nonpurulent nasal rhinorrhea; moist mucous membranes ; pharynx without lesions noted NECK: Supple without meningismus; non-tender; no cervical lymphadenopathy, no masses CARD: Regular rate and rhythm; no murmurs, no clicks, no rubs, no gallops; symmetric distal pulses RESP: Normal chest excursion without splinting or tachypnea; bilateral end expiratory wheezing with no rhonchi or rales present ABD/GI: Normal bowel sounds; non-distended; soft, non-tender BACK: The back appears normal and is non-tender to palpation EXT: Normal ROM in all joints; non-tender to palpation; no edema SKIN: Normal color for age and race; warm; dry; good turgor; capillary refill < 2 seconds; no acute lesions noted NEURO: Moves all extremities equally; Motor and sensory function intact PSYCH: The patient's mood and manner are appropriate. Grooming and personal hygiene are appropriate. Course - Re-evaluation Re-evalutation: 07/02/17 11:01 Given the history, physical examination, congestion and cough, with no chest pain, calf pain, or leg swelling, with vital signs as recorded with an initial oxygen saturation of 96% on room air, with bilateral end expiratory wheezing, I will obtain an x-ray of the chest, provide a repeat nebulizer, and reassess. We will perform an Accu-Chek and if the patient's glucose is within normal limits, we will provide a dose of steroids. I do believe ACS, pulmonary embolism, and aortic dissection to be unlikely given the above history and physical with rhinorrhea and congestion. 07/02/17 11:26 Patient states she feels better. Wheezing has improved on exam. Vital signs are stable. X-ray of the chest as recorded. I will start the patient on a short course of antibiotics with strict return precautions and follow-up with the primary care physician with a 4 day course of steroids. Chest x-ray shows normal heart, normal mediastinum, no fractures, normal lung mcqueen, no pneumothorax. - Vital Signs Vital signs: Temp Pulse Resp BP Pulse Ox 98.8 F 90 18 147/84 H 97 07/02/17 10:06 07/02/17 10:06 07/02/17 10:06 07/02/17 10:06 07/02/17 10:10 Discharge - Discharge Clinical Impression: Wheezing Acute bronchitis Qualifiers: Bronchitis organism: unspecified organism Qualified Code(s): J20.9 - Acute bronchitis, unspecified Condition: Good Disposition: HOME, SELF-CARE Additional Instructions: Please take 2 puffs of the albuterol inhaler every 4 hours for the next day and then every 6 hours as needed after that. Please follow-up with your primary care physician for reassessment and take the steroids and antibiotics as prescribed. Prescriptions: Azithromycin [Zithromax 250 mg Tablet] 250 mg PO ASDIR PRN #6 tablet PRN Reason: Prednisone [Deltasone 20 mg Tablet] 3 tab PO DAILY 5 Days tablet
[2017-07-02 11:35] VITALS: BP 120/82
== END 2017-07-02 11:35 | disposition home or self-care (01) ==
LOC: ER 10:00
DX: J20.9 Acute bronchitis, unspecified (principal); R06.2 Wheezing; R05 Cough; R09.89 Other specified symptoms and signs involving the circulatory and respiratory systems; R09.81 Nasal congestion; Z87.891 Personal history of nicotine dependence; Z79.899 Other long term (current) drug therapy
CPT/HCPCS: 94640 ×2; 99284; 82962; 71020; J7512; J7620

== ENCOUNTER 2017-07-24 18:19 | Emergency (ER) | payer MEDICAID ==
[2017-07-24] MEDS ORDERED: IPRATROPIUM/ALBUTEROL 0.5-2.5 MG/3 ML AMPUL NEB ONE (19:26)
--- NOTE | 2017-07-24 19:39 | ER Document Report ---
ED General - General Chief Complaint: Productive Cough Stated Complaint: COUGHING UP BLOOD Time Seen by Provider: 07/24/17 19:09 TRAVEL OUTSIDE OF THE [place] IN LAST 30 DAYS: No - HPI Notes: Patient is a 42-year-old female who presents the ED complaining of a dry semi- productive cough, wheezing, nasal congestion and discharge 2-3 days. Patient states that she has had a recurrence of the symptoms several times over the last several months. Patient was evaluated in June and was given breathing treatment, steroids, and antibiotics. Patient states that her symptoms mimic that of her symptoms from last month. Patient states that after she had been coughing she did have one cough that had a very scant production of thin blood seen. Patient has not had any episodes of hemoptysis since. Patient also had one episode of posttussive emesis. Patient states that she is otherwise eating and drinking without any difficulties. Patient states that she does have a nebulizer machine at home, but has not used it recently. Patient is a former smoker. She denies any IV drug use. She denies any drug allergies. Patient has a history of hypertension, anxiety, and acid reflux. Pt was eval'd for her symptoms by her PCM recently and was given an inhaler. Denies any headache, fever, neck pain, sore throat, chest pain, palpitations, syncope, shortness of breath, dyspnea, abdominal pain, nausea/diarrhea, urinary retention, dysuria, hematuria, or rash. Patient denies any diabetes, [place], PE, DVT, long distance travel, leg pains, hormone use, or diabetes. - Related Data Allergies/Adverse Reactions: No Known Allergies Allergy (Verified 07/24/17 18:24) Past Medical History - Social History Smoking Status: Former Smoker Family History: Reviewed & Not Pertinent, Hypertension. denies: Arthritis, CAD , CVA, DM, Hyperlipidemia, Malignancy, Thyroid Disfunction Patient has suicidal ideation: No Patient has homicidal ideation: No - Past Medical History Cardiac Medical History: Reports: Hx Hypertension Denies: Hx Coronary Artery Disease, Hx DVT, Hx Pulmonary Embolism Renal/ Medical History: Denies: Hx Peritoneal Dialysis GI Medical History: Reports: Hx Gastroesophageal Reflux Disease Psychiatric Medical History: Reports: Hx Anxiety, Hx Depression - Anxiety Past Surgical History: Reports: Hx Appendectomy, Hx Hysterectomy, Hx Tubal Ligation - Immunizations Immunizations up to date: No Hx Diphtheria, Pertussis, Tetanus Vaccination: Yes Review of Systems - Review of Systems Notes: REVIEW OF SYSTEMS: CONSTITUTIONAL : Denies fever, chills, or sweats. Denies recent illness. EENT: see hpi. CARDIOVASCULAR: Denies chest pain. Denies palpitations or racing or irregular heart beat. Denies ankle edema. RESPIRATORY: see hpi. Denies shortness of breath, difficulty breathing, or wheezing. GASTROINTESTINAL: Denies abdominal pain or distention. Denies nausea, vomiting , or diarrhea. Denies blood in vomitus, stools, or per rectum. Denies black, tarry stools. Denies constipation. GENITOURINARY: Denies difficulty urinating, painful urination, burning, frequency, blood in urine, or discharge. MUSCULOSKELETAL: Denies back or neck pain or stiffness. Denies joint pain or swelling. SKIN: Denies rash, lesions or sores. NEUROLOGICAL: Denies confusion or altered mental status. Denies passing out or loss of consciousness. Denies dizziness or lightheadedness. Denies headache. Denies weakness or paralysis or loss of use of either side. Denies problems with gait or speech. Denies sensory loss, numbness, or tingling. ALL OTHER SYSTEMS REVIEWED AND NEGATIVE. Dictation was performed using [employer]'s voice recognition software Physical Exam - Vital signs Vitals: Temp Pulse Resp BP Pulse Ox 98.9 F 94 22 H 111/84 96 07/24/17 18:24 07/24/17 18:24 07/24/17 18:24 07/24/17 18:24 07/24/17 18:24 Notes: PHYSICAL EXAMINATION: GENERAL: Well-appearing, well-nourished and in no acute distress. A&ox4 HEAD: Atraumatic, normocephalic. EYES: Pupils equal round and reactive to light, extraocular movements intact, sclera anicteric, conjunctiva are normal. ENT: EAC clear b/l. TM's intact b/l without erythema, fluid, or perforation. Nares patent and without discharge. oropharynx clear without exudates. No tonsilar hypertrophy or erythema. Moist mucous membranes. No sinus tenderness. NECK: Normal range of motion, supple without lymphadenopathy. No rigidity/ meningismus. LUNGS: wheezing b/l HEART: Regular rate and rhythm without murmurs, rubs, gallops. ABDOMEN: Soft, nontender, nondistended abdomen. No guarding, no rebound. No masses appreciated. Normal bowel sounds present. No CVA tenderness bilaterally. Musculoskeletal: FROM to passive/active. Strength 5+/5. No calf tenderness b/l. Extremities: No cyanosis, clubbing, or edema b/l. Peripheral pulses 2+. Capillary refill less than 3 seconds. NEUROLOGICAL: Normal speech, normal gait. Normal sensory, motor exams PSYCH: Normal mood, normal affect. SKIN: Warm, Dry, normal turgor, no rashes or lesions noted. Course - Re-evaluation Re-evalutation: 07/24/17 19:23 Patient received 125 mg of Solu-Medrol in the ambulance on her way here. Her blood glucose was 93. 07/24/17 20:30 Patient is an afebrile, well-hydrated, 42-year-old female who presents the ED with acute bronchitis versus asthma exacerbation. Vitals are stable. PE is otherwise unremarkable at this time. Well's Score of low risk. CXR unremarkable for acute pathology. Pt states that she is feeling much better and would like to go home. Patient does have a nebulizer machine along with an inhaler at home. Patient already has Solu-Medrol on board. I will send her home with a steroid taper and a Z-Ricardo. Low suspicion for any ACS, PE, pneumothorax, pericarditis, dissection, sepsis, meningitis, resp compromise, or other systemic emergent condition at this time. Conservative measures otherwise for symptoms with close monitoring. Patient is aware that her condition can change from initial presentation and she needs to monitor symptoms closely and seek medical attention with any acute changes. Recheck with your PCM this week. Return to the ED with any worsening/concerning symptoms otherwise as reviewed in discharge. Patient is in agreement. - Vital Signs Vital signs: Temp Pulse Resp BP Pulse Ox 98.9 F 94 22 H 111/84 96 07/24/17 18:24 07/24/17 18:24 07/24/17 18:24 07/24/17 18:24 07/24/17 18:24 Discharge - Discharge Clinical Impression: Acute wheezy bronchitis Condition: Stable Disposition: HOME, SELF-CARE Instructions: Bronchitis With Bronchospasm (Wheezing) ([facility]), Bronchodilators ( [facility]), Steroid Medication Additional Instructions: Maintain adequate fluid intake Take meds as directed Use inhaler and nebulizer routinely tylenol/ibuprofen as needed over the counter cold medication as needed for symptoms Humidified air may help F/u: with your PCM in 3-5 days for a recheck Return to the ED with any fever, worsening pain, chest pain, palpitations, syncope, worsening SANTOS, neck pain/stiffness, shortness of breath, wheezing, drooling, trouble swallowing/breathing, abdominal pain, n/v/d, rash, or worsening/concerning symptoms otherwise. Prescriptions: Azithromycin [Zithromax 250 mg Tablet] 250 mg PO ASDIR PRN #6 tablet PRN Reason: Prednisone [Deltasone 10 mg Tablet] 10 mg PO ASDIR PRN #21 tablet PRN Reason: Referrals: [facility] [Provider Group] - 07/27/17
--- NOTE | 2017-07-24 20:00 | RADIOLOGY REPORT (SQ) ---
EXAM DESCRIPTION: CHEST PA/LAT COMPLETED DATE/TIME: 07/24/2017 7:47 pm REASON FOR STUDY: cough COMPARISON: 07/02/2017. TECHNIQUE: Frontal and lateral radiographic views of the chest acquired. NUMBER OF VIEWS: Two view. LIMITATIONS: None. FINDINGS: LUNGS AND PLEURA: No opacities, masses or pneumothorax. No pleural effusion. MEDIASTINUM AND HILAR STRUCTURES: No masses or contour abnormalities. HEART AND VASCULAR STRUCTURES: Heart normal size. No evidence for failure. BONES: No acute findings. HARDWARE: None in the chest. OTHER: No other significant finding. IMPRESSION: NO SIGNIFICANT RADIOGRAPHIC FINDING IN THE CHEST. TECHNICAL DOCUMENTATION: JOB ID: [id number] [employer]- All Rights Reserved
[2017-07-24] MEDS ORDERED: METHYLPREDNISOLONE INJ 125 MG/2 ML SDV IM ONE (20:22)
[2017-07-24 20:44] VITALS: BP 110/82
== END 2017-07-24 20:44 | disposition home or self-care (01) ==
LOC: ER 18:19
DX: J20.9 Acute bronchitis, unspecified (principal); R04.2 Hemoptysis; R05 Cough; I10 Essential (primary) hypertension; F41.9 Anxiety disorder, unspecified; K21.9 Gastro-esophageal reflux disease without esophagitis; Z87.891 Personal history of nicotine dependence
CPT/HCPCS: 94640; 99283; 71020; J7620

== ENCOUNTER 2017-08-30 23:23 | Emergency (ER) | payer MEDICAID ==
[2017-08-31] MEDS ORDERED: DEXAMETHASONE 4 MG TABLET PO ONE (01:51)
[2017-08-31] MEDS ORDERED: IPRATROPIUM/ALBUTEROL 0.5-2.5 MG/3 ML AMPUL NEB ONE (01:51)
--- NOTE | 2017-08-31 01:56 | ER Document Report ---
ED General - General Chief Complaint: Shortness Of Breath Stated Complaint: COUGH Time Seen by Provider: 08/31/17 01:28 Notes: Patient is a 42-year-old female with a past medical history of asthma and recurrent bronchitis who presents with 3 days of nasal congestion, cough, clear sputum production and feeling short of breath. She states that she is using her Advair and albuterol inhaler at home without any significant improvement. Nothing worsens her symptoms. She denies any recorded fever. She denies any chest pain, vomiting or diarrhea. She has not seen her primary care doctor regarding today's concerns. She states this feels very similar to the last time she was seen in the emergent department. She notes that at that time her symptoms improved on steroid taper. She denies any history of DVT or pulmonary embolus. No pleuritic pain. No hemoptysis. TRAVEL OUTSIDE OF THE [place] IN LAST 30 DAYS: No - Related Data Allergies/Adverse Reactions: No Known Allergies Allergy (Verified 07/24/17 18:24) Past Medical History - General Information source: Patient - Social History Smoking Status: Never Smoker Frequency of alcohol use: None Drug Abuse: None Lives with: Family Family History: Reviewed & Not Pertinent, Hypertension. denies: Arthritis, CAD , CVA, DM, Hyperlipidemia, Malignancy, Thyroid Disfunction Patient has suicidal ideation: No Patient has homicidal ideation: No - Past Medical History Cardiac Medical History: Reports: Hx Hypertension Denies: Hx Coronary Artery Disease, Hx DVT, Hx Pulmonary Embolism Pulmonary Medical History: Reports: Hx Asthma Renal/ Medical History: Denies: Hx Peritoneal Dialysis GI Medical History: Reports: Hx Gastroesophageal Reflux Disease Psychiatric Medical History: Reports: Hx Anxiety, Hx Depression - Anxiety Past Surgical History: Reports: Hx Appendectomy, Hx Hysterectomy, Hx Tubal Ligation - Immunizations Immunizations up to date: No Hx Diphtheria, Pertussis, Tetanus Vaccination: Yes Review of Systems - Review of Systems Notes: Constitutional: Negative for fever. HENT: Negative for sore throat. Eyes: Negative for visual changes. Cardiovascular: Negative for chest pain. Respiratory: Positive for shortness of breath and cough Gastrointestinal: Negative for abdominal pain, vomiting or diarrhea. Genitourinary: Negative for dysuria. Musculoskeletal: Negative for back pain. Skin: Negative for rash. Neurological: Negative for headaches, weakness or numbness. 10 point ROS negative except as marked above and in HPI. Physical Exam - Vital signs Vitals: Temp Pulse Resp BP Pulse Ox 99.1 F 87 18 119/79 92 08/30/17 23:24 08/30/17 23:24 08/30/17 23:24 08/30/17 23:24 08/30/17 23:24 Interpretation: Hypoxic Notes: PHYSICAL EXAMINATION: GENERAL: Well-appearing, well-nourished and in no acute distress. HEAD: Atraumatic, normocephalic. EYES: Pupils equal round and reactive to light, extraocular movements intact, sclera anicteric, conjunctiva are normal. ENT: nares patent, oropharynx clear without exudates. Moist mucous membranes. NECK: Normal range of motion, supple without lymphadenopathy LUNGS: Diffuse inspiratory and expiratory wheezing in all lung mcqueen. No tachypnea or respiratory distress HEART: Regular rate and rhythm without murmurs ABDOMEN: Soft, nontender, normoactive bowel sounds. No guarding, no rebound. No masses appreciated. EXTREMITIES: Normal range of motion, no pitting or edema. No cyanosis. NEUROLOGICAL: No focal neurological deficits. Moves all extremities spontaneously and on command. PSYCH: Normal mood, normal affect. SKIN: Warm, Dry, normal turgor, no rashes or lesions noted. Course - Re-evaluation Re-evalutation: 08/31/17 01:56 Patient presents with a clinical history and exam most consistent with an acute viral bronchitis. Patient is overall well in appearance without tachypnea, hypoxemia, tachycardia, or difficulty with ambulation. Breath sounds are clear bilaterally. No fever. Patient does have additional signs of upper respiratory infection including nasal congestion, sore throat, and sinus pressure. No indication for labs or imaging. Will treat with bronchodilators, single dose of dexamethasone, and Tessalon Perles. At this time will discharge with return precautions and follow-up recommendations. Verbal discharge instructions given a the bedside and opportunity for questions given. Medication warnings reviewed. Patient is in agreement with this plan and has verbalized understanding of return precautions and the need for primary care follow-up in the next 24-72 hours. - Vital Signs Vital signs: Temp Pulse Resp BP Pulse Ox 99.1 F 87 87 H 120/77 96 08/30/17 23:24 08/30/17 23:24 08/31/17 02:06 08/31/17 02:06 08/31/17 02:06 - Diagnostic Test Radiology reviewed: Image reviewed, Reports reviewed Radiology results interpreted by me: 08/31/17 02:48 Chest x-ray no acute infiltrate pneumothorax Discharge - Discharge Clinical Impression: Bronchitis Reactive airway disease Qualifiers: Asthma severity: moderate Asthma persistence: persistent Asthma complication type: uncomplicated Qualified Code(s): J45.40 - Moderate persistent asthma, uncomplicated Condition: Good Disposition: HOME, SELF-CARE Additional Instructions: You were seen for an asthma exacerbation. Your symptoms improved with treatment here in the emergency department. However, it is very important that you return to the emergency department immediately if you began to have worsening difficulty breathing that does not respond to your normal home nebulizers. You were given a dose of a long-acting steroid here today. Begin taking cetirizine 10 mg daily. Please also follow closely with your primary care physician. you should also return to emergency department if you develop fever greater than 101, persistent cough, persistent vomiting, pass out, or any other symptoms that are concerning to you. Referrals: DEBBY MORALES MD [Primary Care Provider] - Follow up as needed
--- NOTE | 2017-08-31 02:40 | RADIOLOGY REPORT (SQ) ---
EXAM DESCRIPTION: CHEST SINGLE VIEW CLINICAL HISTORY: 42 years, Female, sob COMPARISON: None. NUMBER OF VIEWS: 1 FINDINGS: Adequate lung volumes, clear parenchyma, normal cardiac silhouette. Intact bony thorax. IMPRESSION: Normal chest radiograph. 2011 [facility] [employer]- All Rights Reserved
[2017-08-31 02:59] VITALS: BP 105/71
== END 2017-08-31 02:56 | disposition home or self-care (01) ==
LOC: ER 23:23
DX: J45.40 Moderate persistent asthma, uncomplicated (principal); R06.02 Shortness of breath; R05 Cough; R09.81 Nasal congestion; I10 Essential (primary) hypertension; J02.9 Acute pharyngitis, unspecified; J34.89 Other specified disorders of nose and nasal sinuses
CPT/HCPCS: 94640; 99284; 71010; J3490; J7620

== ENCOUNTER 2018-03-05 23:44 | Emergency (ER) | payer MEDICAID ==
[2018-03-05 23:50] VITALS: BP 124/86
--- NOTE | 2018-03-06 00:12 | ER Document Report ---
HPI - HPI Pain Level: 3 Notes: Patient is a 42-year-old female with a history of asthma who presents to the ED complaining of nasal congestion/discharge, dry nonproductive cough 10 days with development of right ear pain and any irritation in her throat 1 day. Patient states that she was evaluated 7 days ago by her primary care provider and was placed on Zithromax which she has since completed. Patient states that she has had continued symptoms with some improvement in her cough. Patient states that she is primarily just concerned about her right ear pain and the irritation in her throat. She is eating and drinking without any difficulties otherwise. Patient states that she has not been needing to use her inhaler. She is urinating normally and having normal bowel movements. Denies any drug allergies. Denies any headache, fever, neck pain, chest pain, palpitations, syncope, shortness of breath, wheeze, dyspnea, abdominal pain, nausea/vomiting/ diarrhea, urinary retention, dysuria, hematuria, or rash. - ROS Systems Reviewed and Negative: Yes All other systems reviewed and negative - REPRODUCTIVE Reproductive: DENIES: : Past Medical History - Social History Smoking Status: Unknown if Ever Smoked Family History: Reviewed & Not Pertinent, Hypertension. denies: Arthritis, CAD , CVA, DM, Hyperlipidemia, Malignancy, Thyroid Disfunction - Past Medical History Cardiac Medical History: Reports: Hx Hypertension Denies: Hx Coronary Artery Disease, Hx DVT, Hx Pulmonary Embolism Pulmonary Medical History: Reports: Hx Asthma Renal/ Medical History: Denies: Hx Peritoneal Dialysis GI Medical History: Reports: Hx Gastroesophageal Reflux Disease Psychiatric Medical History: Reports: Hx Anxiety, Hx Depression - Anxiety Past Surgical History: Reports: Hx Appendectomy, Hx Hysterectomy, Hx Tubal Ligation - Immunizations Immunizations up to date: No Hx Diphtheria, Pertussis, Tetanus Vaccination: Yes Vertical Provider Document - CONSTITUTIONAL Agree With Documented VS: Yes Notes: PHYSICAL EXAMINATION: GENERAL: Well-appearing, well-nourished and in no acute distress. A&Ox4. Answers questions appropriately. Moves comfortably w/o notable distress HEAD: Atraumatic, normocephalic. EYES: Pupils equal round and reactive to light, extraocular movements intact, sclera anicteric, conjunctiva are normal. ENT: EAC clear b/l. TM's intact b/l without erythema, fluid, or perforation. Nares patent and with clear discharge. oropharynx no erythema without exudates. No tonsilar hypertrophy without erythema or exudate. No palatine shift. Uvula midline. No tongue protrusion. No drooling, hoarseness, or airway compromise. Moist mucous membranes. No sinus tenderness. NECK: Normal range of motion, supple without lymphadenopathy. No rigidity/ meningismus. LUNGS: Breath sounds clear to auscultation bilaterally and equal. No wheezes rales or rhonchi. No retractions HEART: Regular rate and rhythm without murmurs, rubs, gallops. NEUROLOGICAL: Normal speech, normal gait. Normal sensory, motor exams PSYCH: Normal mood, normal affect. SKIN: Warm, Dry, normal turgor, no rashes or lesions noted. - INFECTION CONTROL TRAVEL OUTSIDE OF THE [place] IN LAST 30 DAYS: No Course - Re-evaluation Re-evalutation: 03/06/18 00:10 Patient is an afebrile, well-hydrated, 42-year-old female who presents to the ED with rt otalgia and acute URI, suspect viral. Vitals are acceptable. PE is otherwise unremarkable. CENTOR criteria negative. No labs or imaging warranted at this time based on H&P. Patient has no significant cardiopulmonary or immunocompromised medical conditions aside from her asthma. Patient's lungs are clear to auscultation bilaterally without tachycardia, hypoxia, or tachypnea. Patient is tolerating p.o. without any difficulties. Low suspicion for any meningitis, sepsis, peritonsillar/pharyngeal abscess, respiratory compromise, severe dehydration, or other emergent systemic condition at this time. Patient is aware this condition can change from initial presentation and she needs to monitor symptoms closely. Rx for prednisone. Conservative measures otherwise for symptoms. Recheck with your PCM in 3-5 days. Return to the ED with any worsening/concerning symptoms otherwise as reviewed in discharge. Patient is in agreement. - Vital Signs Vital signs: Temp Pulse Resp BP Pulse Ox 98.4 F 92 16 124/86 H 95 03/05/18 23:49 03/05/18 23:49 03/05/18 23:49 03/05/18 23:49 03/05/18 23:49 Discharge - Discharge Clinical Impression: Acute URI, Otalgia, right ear Condition: Stable Disposition: HOME, SELF-CARE Instructions: Upper Respiratory Illness ([facility]) Additional Instructions: Maintain adequate fluid intake Take meds as directed tylenol/ibuprofen as needed over the counter cold medication as needed for symptoms Humidified air may help Wash your hands regularly Wear a mask when coughing F/u: with your PCM in 3-5 days for a recheck Return to the ED with any fever, worsening pain, chest pain, palpitations, syncope, worsening SANTOS, neck pain/stiffness, shortness of breath, wheezing, drooling, trouble swallowing/breathing, abdominal pain, n/v/d, rash, or worsening/concerning symptoms otherwise. Prescriptions: Prednisone 20 mg PO ASDIR #18 tablet Forms: Elevated Blood Pressure Referrals: DEBBY MORALES MD [Primary Care Provider] - Follow up in 3-5 days
== END 2018-03-06 00:20 | disposition home or self-care (01) ==
LOC: ER 23:44
DX: J06.9 Acute upper respiratory infection, unspecified (principal); H92.01 Otalgia, right ear; R09.81 Nasal congestion; R09.89 Other specified symptoms and signs involving the circulatory and respiratory systems; R05 Cough; J45.909 Unspecified asthma, uncomplicated; J02.9 Acute pharyngitis, unspecified; I10 Essential (primary) hypertension
CPT/HCPCS: 99282

== ENCOUNTER 2018-06-18 11:10 | Emergency (ER) | payer MEDICAID ==
[2018-06-18] MEDS ORDERED: IPRATROPIUM/ALBUTEROL 0.5-2.5 MG/3 ML AMPUL NEB ONE ×2 (11:50→13:14)
[2018-06-18] MEDS ORDERED: PREDNISONE 20 MG TABLET PO ONE (11:51)
--- NOTE | 2018-06-18 11:53 | ER Document Report ---
ED Medical Screen (RME) - General Chief Complaint: Shortness Of Breath Stated Complaint: COUGH Time Seen by Provider: 06/18/18 11:48 Mode of Arrival: Ambulatory Information source: Patient Notes: 43-year-old female with asthma presents with complaint of shortness of breath, productive cough and coughing up blood. Patient was seen by her primary care physician 2 days prior to this visit and placed on an antibiotic. I have greeted and performed a rapid initial assessment of this patient. A comprehensive ED assessment and evaluation of the patient, analysis of test results and completion of medical decision making process we will be contacted by additional ED providers. PHYSICAL EXAMINATION: Vital signs reviewed GENERAL: Well-appearing, well-nourished and in no acute distress. LUNGS: No respiratory distress, expiratory wheezing bilaterally. Coarse breath sounds bilaterally. Musculoskeletal: Normal range of motion NEUROLOGICAL: Normal speech, normal gait. PSYCH: Normal mood, normal affect. SKIN: Warm, Dry, normal turgor, no rashes or lesions noted. TRAVEL OUTSIDE OF THE [place] IN LAST 30 DAYS: No - HPI Onset: Last week Onset/Duration: Persistent Quality of pain: Burning Associated Symptoms: Cough (productive), Shortness of breath Exacerbated by: Coughing Relieved by: Denies Similar symptoms previously: Yes Recently seen / treated by doctor: Yes - Related Data Smoking: Non-smoker Frequency of alcohol use: None Drug Abuse: None Allergies/Adverse Reactions: No Known Allergies Allergy (Verified 07/24/17 18:24) Past Medical History - Past Medical History Cardiac Medical History: Reports: Hx Hypertension Denies: Hx Coronary Artery Disease, Hx DVT, Hx Pulmonary Embolism Pulmonary Medical History: Reports: Hx Asthma Renal/ Medical History: Denies: Hx Peritoneal Dialysis GI Medical History: Reports: Hx Gastroesophageal Reflux Disease Psychiatric Medical History: Reports: Hx Anxiety, Hx Depression - Anxiety Past Surgical History: Reports: Hx Appendectomy, Hx Hysterectomy, Hx Tubal Ligation - Immunizations Immunizations up to date: No Hx Diphtheria, Pertussis, Tetanus Vaccination: Yes Physical Exam - Vital signs Vitals: Temp Pulse Resp BP Pulse Ox 98.1 F 89 18 125/78 96 06/18/18 11:14 06/18/18 11:14 06/18/18 11:14 06/18/18 11:14 06/18/18 11:14 Course - Vital Signs Vital signs: Temp Pulse Resp BP Pulse Ox 98.1 F 89 18 125/78 96 06/18/18 11:14 06/18/18 11:14 06/18/18 11:14 06/18/18 11:14 06/18/18 11:14
--- NOTE | 2018-06-18 12:58 | RADIOLOGY REPORT (SQ) ---
EXAM DESCRIPTION: CHEST 2 VIEWS COMPLETED DATE/TIME: 06/18/2018 12:45 pm REASON FOR STUDY: Shortness of breath, hemoptysis COMPARISON: 07/24/2017 and earlier EXAM PARAMETERS: NUMBER OF VIEWS: two views TECHNIQUE: Digital Frontal and Lateral radiographic views of the chest acquired. RADIATION DOSE: NA LIMITATIONS: none FINDINGS: LUNGS AND PLEURA: No opacities, masses or pneumothorax. No pleural effusion. MEDIASTINUM AND HILAR STRUCTURES: No masses or contour abnormalities. HEART AND VASCULAR STRUCTURES: Heart normal size. No evidence for failure. BONES: No acute findings. HARDWARE: None in the chest. OTHER: No other significant finding. IMPRESSION: NO ACUTE RADIOGRAPHIC FINDING IN THE CHEST. TECHNICAL DOCUMENTATION: JOB ID: [id number] [employer]- All Rights Reserved Reading location - IP/workstation name: [email or web address]
--- NOTE | 2018-06-18 13:31 | ER Document Report ---
HPI - HPI Pain Level: Denies Notes: Patient is a 43-year-old female with a history of hypertension, asthma, GERD who presents to the ED complaining of a dry semi-productive cough, nasal congestion/discharge, postnasal drip over the last month. Patient states that she did have one episode of coughing that had a small amount of blood, but has not had that over the last 1-2 days. Patient states that it occurred during a coughing fit. Patient was evaluated 2 days ago by her primary care provider and was started on an antibiotic. Patient states that she does continue to have wheezing and is not sure if the antibiotic is working or helping. She denies any drug allergies. Denies any prolonged immobilization, distance travel , recent surgery/trauma, personal cancer history, hormone use, smoking, or previous DVT/PE. Denies any headache, fever, neck pain, sore throat, chest pain , palpitations, syncope, shortness of breath, wheeze, dyspnea, abdominal pain, nausea/vomiting/diarrhea, urinary retention, dysuria, hematuria, or rash. - ROS Systems Reviewed and Negative: Yes All other systems reviewed and negative - REPRODUCTIVE Reproductive: DENIES: : - DERM Skin Color: Antoine Past Medical History - General Information source: Patient - Social History Smoking Status: Former Smoker Frequency of alcohol use: None Drug Abuse: None Family History: Reviewed & Not Pertinent, Hypertension. denies: Arthritis, CAD , CVA, DM, Hyperlipidemia, Malignancy, Thyroid Disfunction Patient has suicidal ideation: No Patient has homicidal ideation: No - Past Medical History Cardiac Medical History: Reports: Hx Hypertension Denies: Hx Coronary Artery Disease, Hx DVT, Hx Pulmonary Embolism Pulmonary Medical History: Reports: Hx Asthma Renal/ Medical History: Denies: Hx Peritoneal Dialysis GI Medical History: Reports: Hx Gastroesophageal Reflux Disease Psychiatric Medical History: Reports: Hx Anxiety, Hx Depression - Anxiety Past Surgical History: Reports: Hx Appendectomy, Hx Hysterectomy, Hx Tubal Ligation - Immunizations Immunizations up to date: No Hx Diphtheria, Pertussis, Tetanus Vaccination: Yes Vertical Provider Document - CONSTITUTIONAL Agree With Documented VS: Yes Notes: PHYSICAL EXAMINATION: GENERAL: Well-appearing, well-nourished and in no acute distress. A&Ox4. Answers questions appropriately. Moves comfortably w/o notable distress HEAD: Atraumatic, normocephalic. EYES: Pupils equal round and reactive to light, extraocular movements intact, sclera anicteric, conjunctiva are normal. ENT: EAC clear b/l. TM's intact b/l without erythema, fluid, or perforation. Nares patent and with clear discharge. oropharynx no erythema without exudates. No tonsilar hypertrophy without erythema or exudate. No palatine shift. Uvula midline. No tongue protrusion. No drooling, hoarseness, or airway compromise. Moist mucous membranes. No sinus tenderness. NECK: Normal range of motion, supple without lymphadenopathy. No rigidity/ meningismus. LUNGS: wheezing left lower. No retractions HEART: Regular rate and rhythm without murmurs, rubs, gallops. ABDOMEN: Soft, nontender, nondistended abdomen. No guarding, no rebound. No masses appreciated. Normal bowel sounds present. No CVA tenderness bilaterally. NEUROLOGICAL: Normal speech, normal gait. Normal sensory, motor exams PSYCH: Normal mood, normal affect. SKIN: Warm, Dry, normal turgor, no rashes or lesions noted. - INFECTION CONTROL TRAVEL OUTSIDE OF THE [place] IN LAST 30 DAYS: No Course - Re-evaluation Re-evalutation: 06/18/18 13:45 Patient is an afebrile, well-hydrated, 43-year-old female. I do suspect that her symptoms are secondary to an acute URI, presumed viral. CXR unremarkable. Patient is without any significant tachycardia, tachypnea, or hypoxia. Patient is nontoxic-appearing and is tolerating p.o. without any difficulties. Patient has already received 1 albuterol treatment as well as prednisone at triage. I thoroughly reviewed with patient her risk stratification score of Wells criteria (score of 1) and PERC score of 1 for her episode of hemoptysis. I reviewed d-dimer and then possible CTA options with the patient. Patient declined both stating that she will just follow up with her primary care doctor if she has recurrence or worsening symptoms. Patient is aware of the risk and benefit of this decision and that she could have a blood clot go undiagnosed and she could . DuoNeb treatment given as well today. Lung sounds improved. Lower suspicion for any ACS, PE(reviewed w. pt), pneumothorax, pericarditis, dissection, respiratory compromise, severe dehydration, sepsis, meningitis, or other systemic emergent condition at this time. Patient is aware that her condition can change from initial presentation and she needs to monitor symptoms closely and seek medical attention for any acute changes. I will send her home with a prescription for Tessalon and steroid taper. Recommend conservative measures for symptoms. Recheck with your PCM in 2-3 days. Return to the ED with any worsening/concerning symptoms otherwise as reviewed in discharge. Patient is in agreement. - Vital Signs Vital signs: Temp Pulse Resp BP Pulse Ox 98.1 F 89 18 125/78 96 06/18/18 11:14 06/18/18 11:14 06/18/18 11:14 06/18/18 11:14 06/18/18 11:14 Discharge - Discharge Clinical Impression: Acute URI Condition: Stable Disposition: HOME, SELF-CARE Instructions: Upper Respiratory Illness ([facility]) Additional Instructions: Maintain adequate fluid intake Take meds as directed tylenol/ibuprofen as needed over the counter cold medication as needed for symptoms Humidified air may help Wash your hands regularly Wear a mask when coughing F/u: with your PCM in 2-3 days for a recheck Return to the ED with any fever, worsening pain, chest pain, palpitations, syncope, worsening SANTOS, neck pain/stiffness, shortness of breath, wheezing, drooling, trouble swallowing/breathing, abdominal pain, n/v/d, rash, or worsening/concerning symptoms otherwise. Prescriptions: Benzonatate [Tessalon Perle 100 mg Capsule] 100 mg PO Q8HP PRN #15 cap PRN Reason: Prednisone 20 mg PO ASDIR #18 tablet Referrals: YOHANA LONDON MD [Primary Care Provider] - 06/21/18
[2018-06-18 13:59] VITALS: BP 138/83
== END 2018-06-18 14:05 | disposition home or self-care (01) ==
LOC: ER 11:10
DX: J06.9 Acute upper respiratory infection, unspecified (principal); I10 Essential (primary) hypertension; Z90.710 Acquired absence of both cervix and uterus
CPT/HCPCS: 94640 ×2; 99285; 71046; J7512; J7620

== ENCOUNTER 2018-08-05 22:29 | Observation (INO) | payer MEDICAID ==
[2018-08-05] MEDS ORDERED: IPRATROPIUM/ALBUTEROL 0.5-2.5 MG/3 ML AMPUL NEB ONE (23:00)
[2018-08-05] MEDS ORDERED: METHYLPREDNISOLONE INJ 125 MG/2 ML SDV IV ONE (23:00)
[2018-08-05] MEDS: MAGNESIUM SULFATE/D5W 1 GM/100 ML RTUPB IV SCH ×2 (23:11→23:40)
--- NOTE | 2018-08-05 23:25 | RADIOLOGY REPORT (SQ) ---
XR CHEST 1 VIEW HISTORY: Cough. Wheezing. COMPARISON: None. FINDINGS: Cardiomediastinal silhouette is unremarkable. The lungs are clear. No pleural effusion or pneumothorax is identified. No acute osseous findings. IMPRESSION: No acute cardiopulmonary abnormality.
[2018-08-05] MEDS ORDERED: ALBUTEROL SULFATE 0.083% NEB 2.5 MG/3 ML AMPUL NEB ONE (23:46)
--- NOTE | 2018-08-05 23:47 | ER Document Report ---
ED General - General Chief Complaint: Shortness Of Breath Stated Complaint: SHORTNESS OF BREATH Time Seen by Provider: 08/05/18 22:56 Notes: 43-year-old female with a history of asthma presents with difficulty breathing and wheezing. She does have Advair inhaler at home as well as nebulizer machine. She denies any fevers. No vomiting. She says the last 24 hours nebulizer machine just is not helping her anymore and therefore she is come to the ER. She is never been hospitalized for asthma in the past. Some congestion. TRAVEL OUTSIDE OF THE [place] IN LAST 30 DAYS: No - Related Data Allergies/Adverse Reactions: No Known Allergies Allergy (Verified 08/05/18 22:31) Past Medical History - Social History Smoking Status: Never Smoker Frequency of alcohol use: None Drug Abuse: None Family History: Reviewed & Not Pertinent, Hypertension. denies: Arthritis, CAD , CVA, DM, Hyperlipidemia, Malignancy, Thyroid Disfunction Patient has suicidal ideation: No Patient has homicidal ideation: No - Past Medical History Cardiac Medical History: Reports: Hx Hypertension Denies: Hx Coronary Artery Disease, Hx DVT, Hx Pulmonary Embolism Pulmonary Medical History: Reports: Hx Asthma Renal/ Medical History: Denies: Hx Peritoneal Dialysis GI Medical History: Reports: Hx Gastroesophageal Reflux Disease Psychiatric Medical History: Reports: Hx Anxiety, Hx Depression - Anxiety Past Surgical History: Reports: Hx Appendectomy, Hx Hysterectomy, Hx Tubal Ligation - Immunizations Immunizations up to date: No Hx Diphtheria, Pertussis, Tetanus Vaccination: Yes Review of Systems - Review of Systems Notes: My Normal Review Basic REVIEW OF SYSTEMS: CONSTITUTIONAL : Denies fever, chills, or sweats. EENT: Nasal congestion RESPIRATORY: Cough, difficulty breathing and wheezing. GASTROINTESTINAL: Denies abdominal pain. Denies nausea, vomiting, or diarrhea. MUSCULOSKELETAL: Denies neck or back pain or joint pain or swelling. SKIN: Denies rash or skin lesions. NEUROLOGICAL: Denies altered mental status or loss of consciousness. Denies headache. Denies weakness or paralysis or loss of use of either side. Denies problems with gait or speech. Denies sensory or motor loss. ALL OTHER SYSTEMS REVIEWED AND NEGATIVE. Physical Exam - Vital signs Vitals: Temp Pulse Resp BP Pulse Ox 98 F 91 30 H 129/81 H 92 08/05/18 22:31 08/05/18 22:31 08/05/18 22:31 08/05/18 22:31 08/05/18 22:31 - Notes Notes: General Appearance: Well nourished, alert, cooperative, no acute distress, no obvious discomfort. Vitals: reviewed, See vital signs table. Eyes: PERRL, EOMI, Conjuctiva clear Mouth: No decreasd moisture Throat: No tonsillar inflammation, No airway obstruction Neck: Supple, no neck tenderness Lungs: Diffuse wheezing. Rhonchorous breath sounds. Fair air exchange. Heart: Normal rate, Regular rythm, No murmur, no rub Abdomen: Normal BS, soft, No rigidity, No abdominal tenderness, No guarding, no rebound, no abdominal masses, no organomegaly Extremities: strength 5/5 in all extremities, good pulses in all extremities, no swelling or tenderness in the extremities, no edema. Neuro: speech clear, oriented x 3, normal affect, responds appropriately to questions. Course - Re-evaluation Re-evalutation: 08/05/18 23:47 On reevaluation patient still has some wheezing tightness in her lungs but it is improved in comparison to before the breathing treatments. I will give her another albuterol treatment. She is currently receiving magnesium. We will continue to reassess her to make sure she continues to improve. 08/06/18 00:58 Patient's breath sounds are almost completely clear now. She says she is feeling better. We will watch for another hour just to make sure she does not have been wheezing. She continues to do well then she will be discharged home. 08/06/18 02:08 Reevaluation patient still has a bit of wheezing but again is feeling looking improved. We will give her 1 more breathing treatment and then have her ambulate. She does well with ambulation and her pulse ox stays within normal range and I feel she will be safe to be discharged home. 08/06/18 03:48 We did attempt to ambulate the patient. Unfortunately she started wheezing and became much more tachycardic and started having difficulty breathing which is a little bit ambulation. Oxygen saturations stayed around 95 to 96% however her work of breathing increased significantly and her wheezing returned. Being that she is received several breathing treatments as well as been observed here for prolonged period time and yet she still gets short of breath with ambulation. Appropriate to admit her to observation admit for asthma exacerbation. I did discuss this with the patient and she is agreeable to this. I spoke with Dr. Urias, hospitalist, who agrees to evaluate the patient for admission. Dictation of this chart was performed using voice recognition software; therefore, there may be some unintended grammatical errors. - Vital Signs Vital signs: Temp Pulse Resp BP Pulse Ox 98 F 91 17 133/85 H 95 08/05/18 22:31 08/05/18 22:31 08/06/18 03:00 08/06/18 02:15 08/06/18 03:00 - Laboratory Result Diagrams: 08/05/18 23:20 08/05/18 23:20 Laboratory results interpreted by me: 08/05/18 08/05/18 23:20 23:20 WBC 11.6 H Eosinophils % 14.9 H Absolute Eosinophils 1.7 H Carbon Dioxide 31 H Discharge - Discharge Clinical Impression: Asthma exacerbation Qualifiers: Asthma severity: unspecified severity Asthma persistence: intermittent Qualified Code(s): J45.21 - Mild intermittent asthma with (acute) exacerbation Condition: Stable Disposition: ADMITTED OBSERVATION Admitting Provider: Hospitalist Unit Admitted: Telemetry Referrals: YOHANA LONDON MD [Primary Care Provider] - Follow up as needed
[2018-08-06] MEDS ORDERED: ALBUTEROL SULFATE 0.083% NEB 2.5 MG/3 ML AMPUL NEB ONE (02:07)
[2018-08-06 03:14] LABS: ANION GAP 7 (5-19); BLOOD UREA NITROGEN 8 mg/dL (7-20); CARBON DIOXIDE 31 mmol/L (22-30); CHLORIDE 105 mmol/L (98-107); GLUCOSE 96 mg/dL (75-110); SODIUM 143.3 mmol/L (137-145)
[2018-08-06 03:15] LABS: ABSOLUTE BASOPHILS # (AUTO) 0.1 10^3/uL (0.0-0.2); ABSOLUTE EOSINOPHILS # (AUTO) 1.7 10^3/uL (0.0-0.6); ABSOLUTE MONOCYTES (AUTO) 0.5 10^3/uL (0.1-1.4); ABSOLUTE NEUT (AUTO) 7.2 10^3/uL (1.7-8.2); BASOPHILS % (AUTO) 0.8 % (0-2); EOSINOPHILS % (AUTO) 14.9 % (0-6); HEMATOCRIT 42.8 % (36.0-47.0); HEMOGLOBIN 14.4 g/dL (12.0-15.5); LYMPHOCYTES % (AUTO) 17.6 % (13-45); MEAN CORPUSCULAR HEMOGLOBIN 28.7 pg (27.0-33.4); MEAN CORPUSCULAR HGB CONC 33.6 g/dL (32.0-36.0); MEAN CORPUSCULAR VOLUME 86 fl (80-97); MONOCYTES % (AUTO) 4.5 % (3-13); PLATELET COUNT 358 10^3/uL (150-450); RED CELL DISTRIBUTION WIDTH 13.3 % (11.5-14.0); SEGMENTED NEUTROPHILS % (AUTO) 62.2 % (42-78); TOTAL CELLS COUNTED % (AUTO) 100 %; WHITE BLOOD COUNT 11.6 10^3/uL (4.0-10.5)
[2018-08-06] MEDS ORDERED: MAG HYDROX/AL HYDROX/SIMETH SUSP 30 ML UDCUP PO PRN (03:48)
[2018-08-06] MEDS ORDERED: CHLORPHENIRAMINE MALEATE 4 MG TABLET PO ONE (03:48)
[2018-08-06] MEDS ORDERED: ACETAMINOPHEN 325 MG TABLET PO PRN (03:48)
[2018-08-06] MEDS ORDERED: IPRATROPIUM/ALBUTEROL 0.5-2.5 MG/3 ML AMPUL NEB PRN (03:48)
[2018-08-06] MEDS: HEPARIN SOD (PORCINE) 5,000 UNIT/ML 1 ML SYRINGE SUBCUT SCH ×3 (05:58→21:26)
[2018-08-06] MEDS: LANSOPRAZOLE 30 MG TAB.RAP.DR PO SCH ×2 (05:58→17:40)
[2018-08-06 06:01] LABS: HEMATOCRIT 42.1 % (36.0-47.0); HEMOGLOBIN 14.4 g/dL (12.0-15.5); MEAN CORPUSCULAR HEMOGLOBIN 28.8 pg (27.0-33.4); MEAN CORPUSCULAR HGB CONC 34.3 g/dL (32.0-36.0); MEAN CORPUSCULAR VOLUME 84 fl (80-97); PLATELET COUNT 321 10^3/uL (150-450); RED BLOOD COUNT 5.01 10^6/uL (3.72-5.28); RED CELL DISTRIBUTION WIDTH 12.8 % (11.5-14.0); WHITE BLOOD COUNT 9.2 10^3/uL (4.0-10.5)
[2018-08-06 06:12] LABS: ANION GAP 15 (5-19); BLOOD UREA NITROGEN 9 mg/dL (7-20); CALCIUM 9.2 mg/dL (8.4-10.2); CHLORIDE 105 mmol/L (98-107); GLUCOSE 181 mg/dL (75-110); POTASSIUM 3.6 mmol/L (3.6-5.0); SODIUM 139.5 mmol/L (137-145)
[2018-08-06 06:30] LABS: CARBON DIOXIDE 20 mmol/L (22-30)
[2018-08-06 07:05] LABS: ABSOLUTE LYMPHOCYTES# (MANUAL) 0.4 10^3/uL (0.5-4.7); ABSOLUTE NEUTROPHILS# (MANUAL) 8.8 10^3/uL (1.7-8.2); BASOPHILS % (MANUAL) 0 % (0-2); EOSINOPHILS % (MANUAL) 0 % (0-6); LYMPHOCYTES % (MANUAL) 4 % (13-45); MONOCYTES % (MANUAL) 0 % (3-13); PLATELET COMMENT ADEQUATE; SEGMENTED NEUTROPHILS % (MAN) 96 % (42-78); TOTAL CELLS COUNTED 100
[2018-08-06] MEDS: IPRATROPIUM/ALBUTEROL 0.5-2.5 MG/3 ML AMPUL NEB SCH ×3 (07:32→19:57)
[2018-08-06] MEDS: DOCUSATE SODIUM 100 MG CAPSULE PO SCH ×2 (09:16→17:40)
[2018-08-06] MEDS: PREDNISONE 20 MG TABLET PO SCH ×2 (09:16→17:40)
[2018-08-06] MEDS: FLUTICASONE NASAL SPRAY 50 MCG/SPRY 120 SPRAY/16 GM NASL SCH ×2 (11:28→21:26)
[2018-08-07] MEDS: IPRATROPIUM/ALBUTEROL 0.5-2.5 MG/3 ML AMPUL NEB SCH ×2 (02:15→07:54)
[2018-08-07] MEDS: HEPARIN SOD (PORCINE) 5,000 UNIT/ML 1 ML SYRINGE SUBCUT SCH (05:01)
[2018-08-07] MEDS: LANSOPRAZOLE 30 MG TAB.RAP.DR PO SCH (05:02)
[2018-08-07 05:22] LABS: ABSOLUTE LYMPHOCYTES (AUTO) 1.6 10^3/uL (0.5-4.7); ABSOLUTE MONOCYTES (AUTO) 0.7 10^3/uL (0.1-1.4); ABSOLUTE NEUT (AUTO) 12.2 10^3/uL (1.7-8.2); BASOPHILS % (AUTO) 0.1 % (0-2); EOSINOPHILS % (AUTO) 0.1 % (0-6); HEMATOCRIT 39.5 % (36.0-47.0); HEMOGLOBIN 13.5 g/dL (12.0-15.5); LYMPHOCYTES % (AUTO) 10.9 % (13-45); MEAN CORPUSCULAR HEMOGLOBIN 28.6 pg (27.0-33.4); MEAN CORPUSCULAR HGB CONC 34.2 g/dL (32.0-36.0); MEAN CORPUSCULAR VOLUME 84 fl (80-97); MONOCYTES % (AUTO) 4.9 % (3-13); PLATELET COUNT 309 10^3/uL (150-450); RED BLOOD COUNT 4.72 10^6/uL (3.72-5.28); RED CELL DISTRIBUTION WIDTH 13.2 % (11.5-14.0); TOTAL CELLS COUNTED % (AUTO) 100 %; WHITE BLOOD COUNT 14.5 10^3/uL (4.0-10.5)
[2018-08-07 05:46] LABS: ANION GAP 15 (5-19); BLOOD UREA NITROGEN 11 mg/dL (7-20); CALCIUM 9.4 mg/dL (8.4-10.2); CARBON DIOXIDE 23 mmol/L (22-30); CHLORIDE 103 mmol/L (98-107); GLUCOSE 95 mg/dL (75-110); POTASSIUM 4.2 mmol/L (3.6-5.0); SODIUM 140.5 mmol/L (137-145)
[2018-08-07] MEDS: PREDNISONE 20 MG TABLET PO SCH (10:30)
[2018-08-07] MEDS: DOCUSATE SODIUM 100 MG CAPSULE PO SCH (10:30)
[2018-08-07] MEDS: FLUTICASONE NASAL SPRAY 50 MCG/SPRY 120 SPRAY/16 GM NASL SCH (10:30)
--- NOTE | 2018-08-07 10:46 | Physician Advisory Note ---
Physician Advisor ProgressNote .: Pursuant to the plan for [facility], I have reviewed the medical record for this patient. Physician Advisor Statement: Please consider documenting, if you agree: 1. Reasons this Medicaid pt was not felt to be safe for d/c on 08/06 PM (after 1MN in hospital care) 2. "OBesity w/BMI 42.3" w/clinical effects (needing add'l nursing help? bariatric DM? Needing O2 due to OHS/MAGALIS?) 3. Need H&P on chart Status: Still w/persistent/recurrent tachycardia & tachypnea on 08/06, with abnormally low O2 sats at times (as low as 91% in this young person with no COPD /ILD etc). - If attending finds these or other clinical issues concerning, & documents concerns (#1 above), then appropriate for change to INpatient status as of PM. Thanks! CK
--- NOTE | 2018-08-07 11:28 | PDOC DISCHARGE SUMMARY ---
General - Admit/Disc Date/PCP Admission Date/Primary Care Provider: 08/06/18 04:12 YOHANA LONDON MD Discharge Date: 08/07/18 - Discharge Diagnosis (1) Morbid (severe) obesity due to excess calories Is this a current diagnosis for this admission?: Yes (2) Acute respiratory failure Is this a current diagnosis for this admission?: Yes (3) Abnormal thyroid function test Is this a current diagnosis for this admission?: Yes - Additional Information Resuscitation Status: Full Code Discharge Activity: Activity As Tolerated Prescriptions: Fluticasone Propionate [Flonase Nasal [place] 50 Mcg/[place] 16 gm] 2 spray NASL Q12 #1 spray.pump Prednisone [Deltasone 20 mg Tablet] 40 mg PO DAILY #5 tablet Home Medications: Albuterol Sulfate [Proair HFA] 2 puff IN Q4HP PRN 04/07/17 Lisinopril 10 mg PO DAILY 04/07/17 Omeprazole 20 mg PO DAILY 04/07/17 Fluticasone/Salmeterol [Advair 250-50 Diskus 14 Dose/Diskus] 1 puff IH Q12 07/02 Ipratropium/Albuterol Sulfate [Duoneb 3 ml Ampul] 3 ml NEB RTQIDP PRN 08/06/18 Fluticasone Propionate [Flonase Nasal [place] 50 Mcg/[place] 16 gm] 2 spray NASL Q12 #1 spray.pump 08/07/18 Prednisone [Deltasone 20 mg Tablet] 40 mg PO DAILY #5 tablet 08/07/18 History of Present Illness History of Present Illness: SHEREEN ADORNO is a 43 year old female Presented to the emergency room with difficulty breathing and shortness of breath. She was started on bronchodilators. Hospital Course Hospital Course: Patient was started on bronchodilators as well as steroids. She was monitored in hospital due to persistent bronchospasm however patient continued to improve during her hospital stay and at this point it is felt that she can be discharged home for outpatient management and follow-up with her primary care physician. Patient was initially tachycardic and tachypneic and she was felt to be in acute respiratory failure prompting hospital admission. Chest x-ray shows no evidence of any acute infection. Although patient's white count is slightly elevated this is felt to be due to steroids as no further deterioration in her respiratory status occurred. Her TSH was noted to be abnormal at 0.14. Free T3 and T4 were not obtained. Patient needs outpatient follow-up and for the treatment if needed due to this. ` Physical Exam Vital Signs: Temp Pulse Resp BP Pulse Ox 99.5 F 89 15 120/78 98 08/07/18 07:45 08/07/18 07:54 08/07/18 07:54 08/07/18 07:45 08/07/18 07:54 Intake & Output 08/06/18 08/07/18 08/08/18 06:59 06:59 06:59 Intake Total 100 1676 Balance 100 1676 Weight 125.5 kg 122.6 kg General appearance: PRESENT: no acute distress, cooperative Head exam: PRESENT: atraumatic Neck exam: ABSENT: carotid bruit, JVD, lymphadenopathy, thyromegaly Respiratory exam: PRESENT: clear to auscultation neris. ABSENT: rales, rhonchi, wheezes Cardiovascular exam: PRESENT: RRR. ABSENT: diastolic murmur, rubs, systolic murmur GI/Abdominal exam: PRESENT: normal bowel sounds, soft. ABSENT: distended, guarding, mass, organolmegaly, rebound, tenderness Extremities exam: PRESENT: full ROM. ABSENT: calf tenderness, clubbing, pedal edema Neurological exam: PRESENT: alert, awake, oriented to person, oriented to place , oriented to time, oriented to situation, CN II-XII grossly intact. ABSENT: motor sensory deficit Psychiatric exam: PRESENT: appropriate affect, normal mood. ABSENT: homicidal ideation, suicidal ideation Results Laboratory Results: 08/07/18 04:30 08/07/18 04:30 08/07/18 08/07/18 04:30 04:30 WBC 14.5 H RBC 4.72 Hgb 13.5 Hct 39.5 MCV 84 MCH 28.6 MCHC 34.2 RDW 13.2 Plt Count 309 Seg Neutrophils % 84.0 H Lymphocytes % 10.9 L Monocytes % 4.9 Eosinophils % 0.1 Basophils % 0.1 Absolute Neutrophils 12.2 H Absolute Lymphocytes 1.6 Absolute Monocytes 0.7 Absolute Eosinophils 0.0 Absolute Basophils 0.0 Sodium 140.5 Potassium 4.2 Chloride 103 Carbon Dioxide 23 Anion Gap 15 BUN 11 Creatinine 0.88 Est GFR ( Amer) > 60 Est GFR (Non-Af Amer) > 60 Glucose 95 Calcium 9.4 Impressions: Chest X-Ray 08/05/18 23:01 IMPRESSION: No acute cardiopulmonary abnormality. Qualifiers - * PATIENT BEING DISCHARGED WITH ANY OF THE FOLLOWING DIAGNOSIS: No Plan Time Spent: Less than 30 Minutes
[2018-08-07 12:06] VITALS: BP 137/84
--- NOTE | 2018-08-08 07:54 | PDOC H&P ---
History of Present Illness Admission Date/PCP: 08/06/18 04:12 YOHANA LONDON MD Patient complains of: Shortness of breath History of Present Illness: SHEREEN ADORNO is a 43 year old female with a past medical history of asthma and obesity. She presents with 6 hours of shortness of breath with both rhinorrhea and uncontrolled GERD. In the emergency room she is found to have global wheeze and oxygen saturations in the mid 80s on room air. Chest x-ray is unremarkable she denies chest pain, palpitations or nausea vomiting. She received continuous nebulizer with albuterol and Atrovent, steroids and magnesium then referred to the hospitalist for admission. Patient denies recent change in medications Past Medical History Cardiac Medical History: Reports: Hypertension Denies: Coronary Artery Disease, DVT, Pulmonary Embolism Pulmonary Medical History: Reports: Asthma GI Medical History: Reports: Gastroesophageal Reflux Disease Psychiatric Medical History: Reports: Depression Past Surgical History Past Surgical History: Reports: Appendectomy, Hysterectomy, Tubal Ligation Social History Information Source: Patient, [facility] Records Smoking Status: Never Smoker Frequency of Alcohol Use: None Hx Recreational Drug Use: No Drugs: None - Advance Directive Resuscitation Status: Full Code Family History Family History: Hypertension. denies: Arthritis, CAD, CVA, DM, Hyperlipidemia, Malignancy, Thyroid Disfunction Parental Family History Reviewed: Yes Children Family History Reviewed: Yes Sibling(s) Family History Reviewed.: Yes Medication/Allergy Home Medications: Albuterol Sulfate [Proair HFA] 2 puff IN Q4HP PRN 04/07/17 Lisinopril 10 mg PO DAILY 04/07/17 Omeprazole 20 mg PO DAILY 04/07/17 Fluticasone/Salmeterol [Advair 250-50 Diskus 14 Dose/Diskus] 1 puff IH Q12 07/02 Ipratropium/Albuterol Sulfate [Duoneb 3 ml Ampul] 3 ml NEB RTQIDP PRN 08/06/18 Fluticasone Propionate [Flonase Nasal [place] 50 Mcg/[place] 16 gm] 2 spray NASL Q12 #1 spray.pump 08/07/18 Prednisone [Deltasone 20 mg Tablet] 40 mg PO DAILY #5 tablet 08/07/18 Allergies/Adverse Reactions: No Known Allergies Allergy (Verified 08/05/18 22:31) Review of Systems Constitutional: PRESENT: as per HPI. ABSENT: anorexia, chills, fatigue Eyes: ABSENT: visual disturbances Ears: ABSENT: hearing changes Nose, Mouth, and Throat: PRESENT: other - Rhinorrhea Cardiovascular: ABSENT: chest pain, dyspnea on exertion, edema, orthropnea, palpitations Respiratory: PRESENT: as per HPI, cough, dyspnea. ABSENT: hemoptysis, sputum Gastrointestinal: PRESENT: as per HPI, other - GERD. ABSENT: abdominal pain, bloating, coffee ground emesis Genitourinary: ABSENT: dysuria, hematuria Musculoskeletal: ABSENT: joint swelling Integumentary: ABSENT: rash, wounds Neurological: ABSENT: abnormal gait, abnormal speech, confusion, dizziness, focal weakness, syncope Psychiatric: ABSENT: anxiety, depression, homidical ideation, suicidal ideation Endocrine: ABSENT: cold intolerance, heat intolerance, polydipsia, polyuria Hematologic/Lymphatic: ABSENT: easy bleeding, easy bruising Physical Exam Vital Signs: Temp Pulse Resp BP Pulse Ox 98.0 F 90 16 137/84 H 94 08/07/18 12:04 08/07/18 12:04 08/07/18 12:04 08/07/18 12:04 08/07/18 12:04 Intake & Output 08/06/18 08/07/18 08/08/18 11:59 11:59 11:59 Intake Total 750 1026 Balance 750 1026 Weight 125.5 kg 122.6 kg General appearance: PRESENT: cooperative, mild distress, morbidly obese Head exam: PRESENT: atraumatic, normocephalic Eye exam: PRESENT: conjunctiva pink, EOMI, PERRLA. ABSENT: scleral icterus Ear exam: PRESENT: normal external ear exam Mouth exam: PRESENT: moist, tongue midline Neck exam: ABSENT: carotid bruit, JVD, lymphadenopathy, thyromegaly Respiratory exam: PRESENT: accessory muscle use, prolonged expiratory phas, retraction, symmetrical, tachypnea, wheezes. ABSENT: rhonchi Cardiovascular exam: PRESENT: RRR, tachycardia. ABSENT: diastolic murmur, rubs , systolic murmur Pulses: PRESENT: normal dorsalis pedis pul Vascular exam: PRESENT: normal capillary refill GI/Abdominal exam: PRESENT: normal bowel sounds, soft. ABSENT: distended, guarding, mass, organolmegaly, rebound, tenderness Rectal exam: PRESENT: deferred Extremities exam: PRESENT: full ROM. ABSENT: calf tenderness, clubbing, pedal edema Neurological exam: PRESENT: alert, awake, oriented to person, oriented to place , oriented to time, oriented to situation, CN II-XII grossly intact. ABSENT: motor sensory deficit Psychiatric exam: PRESENT: appropriate affect, normal mood. ABSENT: homicidal ideation, suicidal ideation Skin exam: PRESENT: dry, intact, warm. ABSENT: cyanosis, rash Results Laboratory Results: 08/07/18 04:30 08/07/18 04:30 Impressions: Chest X-Ray 08/05/18 23:01 IMPRESSION: No acute cardiopulmonary abnormality. Assessment & Plan - Diagnosis (1) Asthma exacerbation Qualifiers: Asthma severity: unspecified severity Asthma persistence: intermittent Qualified Code(s): J45.21 - Mild intermittent asthma with (acute) exacerbation Is this a current diagnosis for this admission?: Yes Plan: Secondary to uncontrolled allergic sinusitis and GERD. Supplemental oxygen, albuterol and Atrovent, steroids, follow-up peak flow and education (2) GERD (gastroesophageal reflux disease) Is this a current diagnosis for this admission?: Yes Plan: Proton pump inhibitor, education for lifestyle modification and caffeine reduction (3) Allergic sinusitis Is this a current diagnosis for this admission?: Yes Plan: Zyrtec and Flonase (4) Morbid (severe) obesity due to excess calories Is this a current diagnosis for this admission?: Yes Plan: Morbid obesity will evaluate for metabolic cause with evaluation of thyroid function and dietitian consultation - Time Time Spent: 30 to 50 Minutes
== END 2018-08-07 12:34 | disposition home or self-care (01) ==
LOC: ER 22:29 → EH 08-06 04:12 → 3W 08-06 05:13
PROVIDERS: ADMIT Internal Medicine; ATTEND Internal Medicine
DX: J96.00 Acute respiratory failure, unspecified whether with hypoxia or hypercapnia (principal); E66.01 Morbid (severe) obesity due to excess calories; Z68.41 Body mass index [BMI] 40.0-44.9, adult; R94.6 Abnormal results of thyroid function studies; J45.21 Mild intermittent asthma with (acute) exacerbation; K21.9 Gastro-esophageal reflux disease without esophagitis; I10 Essential (primary) hypertension; J30.9 Allergic rhinitis, unspecified; Z79.899 Other long term (current) drug therapy; Z90.49 Acquired absence of other specified parts of digestive tract; Z82.49 Family history of ischemic heart disease and other diseases of the circulatory system; Z23 Encounter for immunization
CPT/HCPCS: 94640 ×4; 99285; 96375; 96365; 36415 ×2; 84443; 85025 ×2; 80048 ×2; 83880; 71045; 90686; G0378 ×3; J3490 ×3; J1644 ×2; J2930; J3475; J7512 ×2; J7620 ×3

== ENCOUNTER 2018-09-30 20:10 | Inpatient (IN) | payer MEDICAID ==
[2018-09-30] MEDS ORDERED: NORMAL SALINE 1000 ML 1,000 ML IV ONE (20:17)
[2018-09-30] MEDS ORDERED: ALBUTEROL SULFATE 0.083% NEB 2.5 MG/3 ML AMPUL NEB ONE ×2 (20:17→21:26)
--- NOTE | 2018-09-30 20:18 | ER Document Report ---
ED General - General Stated Complaint: SHORTNESS OF BREATH Time Seen by Provider: 09/30/18 20:16 Cannot obtain history due to: Unstable vital signs Notes: Patient is a 43-year-old female with a past medical history of asthma, presents complaining of shortness of breath and cough that has been progressively worsening over the last 24 hours. The patient describes the shortness of breath as being gradual in onset moderate to severe in intensity. Has tried her home rescue inhaler without relief. States this feels similar to when she has re quired hospitalization in the past. Has never required intubation for her asthma by her report. She has not seen her general physician regarding today's concerns. States that she has had a cough, nasal congestion and believes she has acquired a viral upper respiratory infection. Multiple sick contacts. TRAVEL OUTSIDE OF THE [place] IN LAST 30 DAYS: No - Related Data Allergies/Adverse Reactions: No Known Allergies Allergy (Verified 09/30/18 21:22) Past Medical History - General Information source: Patient - Social History Smoking Status: Never Smoker Frequency of alcohol use: None Drug Abuse: None Lives with: Family Family History: Hypertension. denies: Arthritis, CAD, CVA, DM, Hyperlipidemia, Malignancy, Thyroid Disfunction - Past Medical History Cardiac Medical History: Reports: Hx Hypertension Denies: Hx Coronary Artery Disease, Hx DVT, Hx Pulmonary Embolism Pulmonary Medical History: Reports: Hx Asthma Renal/ Medical History: Denies: Hx Peritoneal Dialysis GI Medical History: Reports: Hx Gastroesophageal Reflux Disease Psychiatric Medical History: Reports: Hx Anxiety, Hx Depression Past Surgical History: Reports: Hx Appendectomy, Hx Hysterectomy, Hx Tubal Ligation - Immunizations Immunizations up to date: No Hx Diphtheria, Pertussis, Tetanus Vaccination: Yes Hx Pneumococcal Vaccination: 09/12/15 Review of Systems - Review of Systems Notes: Constitutional: Negative for fever. HENT: Negative for sore throat. Eyes: Negative for visual changes. Cardiovascular: Negative for chest pain. Respiratory: Positive for shortness of breath and cough Gastrointestinal: Negative for abdominal pain, vomiting or diarrhea. Genitourinary: Negative for dysuria. Musculoskeletal: Negative for back pain. Skin: Negative for rash. Neurological: Negative for headaches, weakness or numbness. 10 point ROS negative except as marked above and in HPI. Physical Exam - Vital signs Vitals: Pulse Ox 93 09/30/18 20:14 Interpretation: Tachycardic, Hypoxic, Tachypneic Notes: PHYSICAL EXAMINATION: GENERAL: Appears in moderate respiratory distress, mildly unwell HEAD: Atraumatic, normocephalic. EYES: Pupils equal round and reactive to light, extraocular movements intact, sclera anicteric, conjunctiva are normal. ENT: nares patent, oropharynx clear without exudates. Moderately dry mucous membranes. NECK: Normal range of motion, supple without lymphadenopathy LUNGS: Moderate respiratory distress, breathing approximately 30 times per minute. Coarse wheezing in all lung mcqueen is globally diminished air movement throughout. HEART: Regular tachycardia without murmurs ABDOMEN: Soft, nontender, normoactive bowel sounds. No guarding, no rebound. N o masses appreciated. EXTREMITIES: Normal range of motion, no pitting or edema. No cyanosis. NEUROLOGICAL: No focal neurological deficits. Moves all extremities spontaneously and on command. PSYCH: Normal mood, normal affect. SKIN: Warm, Dry, normal turgor, no rashes or lesions noted. Course - Re-evaluation Re-evalutation: 09/30/18 20:18 Patient presents with mild respiratory distress, tachypneic, able to speak in 5- 6 word sentences. Minimal abdominal retractions although no intercostal or supraclavicular retractions. Patient has globally diminished air movement in all lung mcqueen with coarse expiratory wheezing in all lung mcqueen. Patient has received 125 mg of Solu-Medrol in the field as well as multiple duo nebulizers. The patient will be started on 10 mg of continuous albuterol. Chest x-ray and labs will be obtained. 09/30/18 21:28 On reassessment the patient continues to have moderately increased work of breathing, hypoxic on room air to 88% requiring 2-3 L nasal cannula supplementation to maintain saturations in the low 90s. Despite the above treatments the patient continues to have diminished air movement in all lung mcqueen, coarse wheezing although improved from initial presentation. Will proc eed to 2 g of magnesium IV, an additional 10 mg of albuterol. She does not yet require BiPAP as she is not in overt distress. Will continue to reassess. 09/30/18 22:59 Patient has continued to have increased work of breathing although is not in distress. Saturations cannot go above 91% despite 4 L nasal cannula. Will transition to BiPAP to prevent progression of her work of breathing. Additional images have been ordered. Will discuss with the hospitalist for admission. - Vital Signs Vital signs: Temp Pulse Resp BP Pulse Ox 98.0 F 80 16 134/74 H 96 10/01/18 02:22 10/01/18 02:32 10/01/18 02:32 10/01/18 02:22 10/01/18 02:32 - Laboratory Result Diagrams: 09/30/18 20:35 09/30/18 20:35 Laboratory results interpreted by me: 09/30/18 20:35 WBC 10.7 H Eosinophils % 19.1 H Absolute Eosinophils 2.1 H - Diagnostic Test Radiology reviewed: Image reviewed, Reports reviewed Radiology results interpreted by me: 09/30/18 21:29 Chest x-ray: No acute infiltrate or pneumothorax Critical Care Note - Critical Care Note Total time excluding time spent on procedures (mins): 37 Comments: Critical care time spent obtaining history from patient or surrogate, discussions with consultants, development of treatment plan with patient or surrogate, evaluation of patient's response to treatment, examination of patient, ordering and performing treatments and interventions, ordering and rev iew of laboratory studies, re-evaluation of patient's condition, ordering and review of radiographic studies and review of old charts Discharge - Discharge Clinical Impression: Respiratory distress, Viral upper respiratory infection Asthma exacerbation Qualifiers: Asthma severity: moderate Asthma persistence: persistent Qualified Code(s): J45.41 - Moderate persistent asthma with (acute) exacerbation Condition: Fair Disposition: ADMITTED INPATIENT Admitting Provider: Hospitalist Unit Admitted: Telemetry
[2018-09-30 20:44] LABS: ABSOLUTE BASOPHILS # (AUTO) 0.1 10^3/uL (0.0-0.2); ABSOLUTE EOSINOPHILS # (AUTO) 2.1 10^3/uL (0.0-0.6); ABSOLUTE LYMPHOCYTES (AUTO) 2.6 10^3/uL (0.5-4.7); ABSOLUTE MONOCYTES (AUTO) 0.6 10^3/uL (0.1-1.4); ABSOLUTE NEUT (AUTO) 5.4 10^3/uL (1.7-8.2); BASOPHILS % (AUTO) 0.5 % (0-2); EOSINOPHILS % (AUTO) 19.1 % (0-6); HEMATOCRIT 41.3 % (36.0-47.0); HEMOGLOBIN 14.1 g/dL (12.0-15.5); LYMPHOCYTES % (AUTO) 24.3 % (13-45); MEAN CORPUSCULAR HEMOGLOBIN 28.7 pg (27.0-33.4); MEAN CORPUSCULAR HGB CONC 34.2 g/dL (32.0-36.0); MEAN CORPUSCULAR VOLUME 84 fl (80-97); PLATELET COUNT 351 10^3/uL (150-450); RED BLOOD COUNT 4.93 10^6/uL (3.72-5.28); RED CELL DISTRIBUTION WIDTH 13.6 % (11.5-14.0); SEGMENTED NEUTROPHILS % (AUTO) 50.1 % (42-78); TOTAL CELLS COUNTED % (AUTO) 100 %; WHITE BLOOD COUNT 10.7 10^3/uL (4.0-10.5)
--- NOTE | 2018-09-30 20:48 | RADIOLOGY REPORT (SQ) ---
EXAM DESCRIPTION: XR CHEST 1 VIEW COMPLETED DATE/TME: 09/30/2018 20:17 CLINICAL HISTORY: 43 years, Female, sob COMPARISON: August 06, 2018. NUMBER OF VIEWS: One TECHNIQUE: AP view of the chest LIMITATIONS: None. FINDINGS: Lung volumes are decreased but clear. No pleural abnormalities. The cardiac silhouette and pulmonary vessels are normal. IMPRESSION: No acute cardiopulmonary disease. copyright 2010 [employer]- All Rights Reserved
[2018-09-30 21:03] LABS: ANION GAP 7 (5-19); BLOOD UREA NITROGEN 10 mg/dL (7-20); CARBON DIOXIDE 27 mmol/L (22-30); CHLORIDE 106 mmol/L (98-107); GLUCOSE 103 mg/dL (75-110); POTASSIUM 3.9 mmol/L (3.6-5.0); SODIUM 139.8 mmol/L (137-145)
[2018-09-30] MEDS ORDERED: MAGNESIUM SULFATE/D5W 1 GM/100 ML RTUPB IV ONE (21:19)
[2018-09-30] MEDS: MAGNESIUM SULFATE/D5W 1 GM/100 ML RTUPB IV SCH ×2 (21:32→22:31)
[2018-09-30 22:06] LABS: A TYPE INFLUENZA AG NEGATIVE (NEGATIVE); B INFLUENZA AG NEGATIVE (NEGATIVE)
[2018-09-30] MEDS ORDERED: LEVOFLOXACIN 750 MG/D5W RTU 750 MG/150 ML RTUPB IV ONE (23:00)
[2018-09-30] MEDS ORDERED: LORAZEPAM INJ 2 MG/1 ML VIAL ONE (23:16)
[2018-09-30] MEDS ORDERED: LORAZEPAM INJ 2 MG/1 ML VIAL IV ONE (23:23)
[2018-09-30] MEDS ORDERED: HYDRALAZINE HCL INJ/PF 20 MG/1 ML SDV IV PRN (23:30)
[2018-09-30] MEDS ORDERED: CHLORPHENIRAMINE MALEATE 4 MG TABLET PO ONE (23:30)
[2018-09-30] MEDS ORDERED: ACETAMINOPHEN 325 MG TABLET PO PRN (23:31)
[2018-09-30] MEDS ORDERED: ALBUTEROL SULFATE 0.083% NEB 2.5 MG/3 ML AMPUL NEB PRN (23:31)
[2018-09-30] MEDS ORDERED: FLUTICASONE NASAL SPRAY 50 MCG/SPRY 120 SPRAY/16 GM NASL ONE (23:45)
[2018-10-01] MEDS ORDERED: FLUTICASONE NASAL SPRAY 50 MCG/SPRY 120 SPRAY/16 GM ONE (00:50)
[2018-10-01] MEDS ORDERED: CHLORPHENIRAMINE MALEATE 4 MG TABLET ONE (00:50)
[2018-10-01] MEDS: ALBUTEROL SULFATE 0.083% NEB 2.5 MG/3 ML AMPUL NEB SCH ×4 (02:32→20:30)
[2018-10-01 05:23] LABS: ANION GAP 11 (5-19); BLOOD UREA NITROGEN 11 mg/dL (7-20); CALCIUM 9.2 mg/dL (8.4-10.2); CARBON DIOXIDE 22 mmol/L (22-30); CHLORIDE 106 mmol/L (98-107); GLUCOSE 220 mg/dL (75-110); POTASSIUM 4.4 mmol/L (3.6-5.0); SODIUM 138.8 mmol/L (137-145)
[2018-10-01 05:25] LABS: HEMATOCRIT 40.1 % (36.0-47.0); HEMOGLOBIN 13.7 g/dL (12.0-15.5); MEAN CORPUSCULAR HEMOGLOBIN 28.5 pg (27.0-33.4); MEAN CORPUSCULAR HGB CONC 34.1 g/dL (32.0-36.0); MEAN CORPUSCULAR VOLUME 84 fl (80-97); PLATELET COUNT 323 10^3/uL (150-450); RED CELL DISTRIBUTION WIDTH 13.5 % (11.5-14.0); WHITE BLOOD COUNT 8.3 10^3/uL (4.0-10.5)
--- NOTE | 2018-10-01 05:32 | PDOC H&P ---
History of Present Illness Admission Date/PCP: 10/01/18 00:01 Patient complains of: Asthma attack History of Present Illness: SHEREEN ADORNO is a 43 year old female with a past medical history of asthma, GERD and morbid obesity. She presents with an exacerbation of shortness of breath with wheeze over the last 24 hours of increasing intensity despite use of albuterol nebulizer. She complains of rhinorrhea and a postnasal drip. Otherwise has no exposures to known triggers. She denies history of intubation or recent missing medications. In the emergency room she requires BiPAP and continuous albuterol Atrovent, Solu-Medrol with minimal improvement. She is referred to the hospitalist for admission Past Medical History Cardiac Medical History: Reports: Hypertension Denies: Coronary Artery Disease, DVT, Pulmonary Embolism Pulmonary Medical History: Reports: Asthma, Bronchitis EENT Medical History: Reports: None Neurological Medical History: Reports: None Endocrine Medical History: Reports: None Renal/ Medical History: Reports: None GI Medical History: Reports: Gastroesophageal Reflux Disease Musculoskeltal Medical History: Reports: None Skin Medical History: Reports: None Psychiatric Medical History: Reports: Depression Denies: Substance Abuse, Tobacco Dependency Traumatic Medical History: Reports: None Hematology: Reports: None Infectious Medical History: Reports: None Past Surgical History Past Surgical History: Reports: Appendectomy, Section - X2, Hysterectomy, Tubal Ligation Social History Information Source: Patient Lives with: Family Smoking Status: Never Smoker Frequency of Alcohol Use: None Hx Recreational Drug Use: No Drugs: None Hx Prescription Drug Abuse: No - Advance Directive Resuscitation Status: Full Code Family History Family History: Hypertension. denies: Arthritis, CAD, CVA, DM, Hyperlipidemia, Malignancy, Thyroid Disfunction Parental Family History Reviewed: Yes Children Family History Reviewed: Yes Sibling(s) Family History Reviewed.: Yes Medication/Allergy Home Medications: Albuterol Sulfate [Proair HFA] 2 puff IN Q4HP PRN 04/07/17 Lisinopril 10 mg PO DAILY 04/07/17 Omeprazole 20 mg PO DAILY 04/07/17 Fluticasone/Salmeterol [Advair 250-50 Diskus 14 Dose/Diskus] 1 puff IH Q12 07/02/17 Ipratropium/Albuterol Sulfate [Duoneb 3 ml Ampul] 3 ml NEB RTQIDP PRN 08/06/18 Fluticasone Propionate [Flonase Nasal [place] 50 Mcg/[place] 16 gm] 2 spray NASL Q12 #1 spray.pump 08/07/18 Allergies/Adverse Reactions: No Known Allergies Allergy (Verified 09/30/18 21:22) Review of Systems Constitutional: ABSENT: chills, fever(s), headache(s), weight gain, weight loss Eyes: ABSENT: visual disturbances Ears: ABSENT: hearing changes Cardiovascular: ABSENT: chest pain, dyspnea on exertion, edema, orthropnea, palpitations Respiratory: ABSENT: cough, hemoptysis Gastrointestinal: ABSENT: abdominal pain, constipation, diarrhea, hematemesis, hematochezia, nausea, vomiting Genitourinary: ABSENT: dysuria, hematuria Musculoskeletal: ABSENT: joint swelling Integumentary: ABSENT: rash, wounds Neurological: ABSENT: abnormal gait, abnormal speech, confusion, dizziness, focal weakness, syncope Psychiatric: ABSENT: anxiety, depression, homidical ideation, suicidal ideation Endocrine: ABSENT: cold intolerance, heat intolerance, polydipsia, polyuria Hematologic/Lymphatic: ABSENT: easy bleeding, easy bruising Physical Exam Vital Signs: Temp Pulse Resp BP Pulse Ox 98.0 F 102 H 16 116/68 94 10/01/18 03:46 10/01/18 03:46 10/01/18 03:46 10/01/18 03:46 10/01/18 03:46 Intake & Output 09/29/18 09/30/18 10/01/18 11:59 11:59 11:59 Intake Total 1348 Balance 1348 Weight 127.6 kg General appearance: PRESENT: cooperative, obese, severe distress Head exam: PRESENT: atraumatic, normocephalic Eye exam: PRESENT: conjunctiva pink, EOMI, PERRLA. ABSENT: scleral icterus Ear exam: PRESENT: normal external ear exam Mouth exam: PRESENT: moist, tongue midline Neck exam: ABSENT: carotid bruit, JVD, lymphadenopathy, thyromegaly Respiratory exam: PRESENT: accessory muscle use, decreased breath sounds, prolonged expiratory phas, retraction, tachypnea, wheezes. ABSENT: rales Cardiovascular exam: PRESENT: RRR, +S1, +S2, tachycardia. ABSENT: gallop Pulses: PRESENT: normal dorsalis pedis pul Vascular exam: PRESENT: normal capillary refill GI/Abdominal exam: PRESENT: normal bowel sounds, soft. ABSENT: distended, guarding, mass, organolmegaly, rebound, tenderness Rectal exam: PRESENT: deferred Extremities exam: PRESENT: full ROM. ABSENT: calf tenderness, clubbing, pedal edema Neurological exam: PRESENT: alert, awake, oriented to person, oriented to place, oriented to time, oriented to situation, CN II-XII grossly intact. ABSENT: motor sensory deficit Psychiatric exam: PRESENT: appropriate affect, normal mood. ABSENT: homicidal ideation, suicidal ideation Skin exam: PRESENT: dry, intact, warm. ABSENT: cyanosis, rash Results Laboratory Results: 09/30/18 09/30/18 20:35 20:35 WBC 10.7 H RBC 4.93 Hgb 14.1 Hct 41.3 MCV 84 MCH 28.7 MCHC 34.2 RDW 13.6 Plt Count 351 Seg Neutrophils % 50.1 Lymphocytes % 24.3 Monocytes % 6.0 Eosinophils % 19.1 H Basophils % 0.5 Absolute Neutrophils 5.4 Absolute Lymphocytes 2.6 Absolute Monocytes 0.6 Absolute Eosinophils 2.1 H Absolute Basophils 0.1 Sodium 139.8 Potassium 3.9 Chloride 106 Carbon Dioxide 27 Anion Gap 7 BUN 10 Creatinine 0.88 Est GFR ( Amer) > 60 Est GFR (Non-Af Amer) > 60 Glucose 103 Calcium 9.0 09/30/18 20:35 NT-Pro-B Natriuret Pep 51 Impressions: Chest X-Ray 09/30/18 20:17 IMPRESSION: No acute cardiopulmonary disease. copyright 2010 [email or web address]- All Rights Reserved Assessment & Plan - Diagnosis (1) Asthma exacerbation Qualifiers: Asthma severity: moderate Asthma persistence: persistent Qualified Code(s): J45.41 - Moderate persistent asthma with (acute) exacerbation Is this a current diagnosis for this admission?: Yes Plan: Solu-Medrol, albuterol and Atrovent, magnesium as needed. Follow-up peak flow, titrate steroids as tolerated (2) Viral upper respiratory infection Is this a current diagnosis for this admission?: Yes Plan: Likely chronic allergic sinusitis with acute viral component, symptomatic management, chlorpheniramine, Flonase, empiric antibiotics initiated (3) GERD (gastroesophageal reflux disease) Is this a current diagnosis for this admission?: Yes Plan: Prevacid twice daily, education - Time Time Spent: 50 to 70 Minutes - Inpatient Certification Medical Necessity: Need Close Monitoring Due to Risk of Patient Decompensation
[2018-10-01] MEDS ORDERED: METHYLPREDNISOLONE INJ 125 MG/2 ML SDV IV SCH ×2 (06:00→10:00)
[2018-10-01 06:32] LABS: ABSOLUTE LYMPHOCYTES# (MANUAL) 0.5 10^3/uL (0.5-4.7); ABSOLUTE NEUTROPHILS# (MANUAL) 7.8 10^3/uL (1.7-8.2); BASOPHILS % (MANUAL) 0 % (0-2); EOSINOPHILS % (MANUAL) 0 % (0-6); LYMPHOCYTES % (MANUAL) 6 % (13-45); MONOCYTES % (MANUAL) 0 % (3-13); PLATELET COMMENT ADEQUATE; SEGMENTED NEUTROPHILS % (MAN) 94 % (42-78); TOTAL CELLS COUNTED 100
[2018-10-01] MEDS: HEPARIN SOD (PORCINE) 5,000 UNIT/ML 1 ML SYRINGE SUBCUT SCH ×3 (06:43→22:39)
[2018-10-01] MEDS: LANSOPRAZOLE 30 MG TAB.RAP.DR PO SCH ×2 (06:43→17:07)
[2018-10-01] MEDS: FLUTICASONE NASAL SPRAY 50 MCG/SPRY 120 SPRAY/16 GM NASL SCH ×2 (11:17→22:38)
--- NOTE | 2018-10-01 12:43 | PDOC PROGRESS REPORT ---
Subjective Progress Note for:: 10/01/18 Subjective:: This is a 43 year old female with a past medical history of poorly controlled asthma, GERD, hypertension, and morbid obesity who presented with rhinorrhea, postnasal drip and wheezing. She was admitted for asthma exacerbation. She was initially placed on BIPAP and was given IV steroids and breathing treatments. No acute event overnight. She has been weaned off BIPAP and is currently saturating well on 3L via NC. She says her breathing has slightly improved today. Denies chest pain. She does say she has been having more frequent asthma attacks in the past several months. Reason For Visit: ASTHMA EXACERBATION ACUTE BRONCHITIS Physical Exam Vital Signs: Temp Pulse Resp BP Pulse Ox 98.1 F 97 20 117/68 96 10/01/18 08:26 10/01/18 08:26 10/01/18 08:26 10/01/18 08:26 10/01/18 08:26 Intake & Output 09/30/18 10/01/18 10/02/18 06:59 06:59 06:59 Intake Total 1348 Balance 1348 Weight 281 lb 4.957 oz General appearance: PRESENT: no acute distress, well-developed, well-nourished Head exam: PRESENT: atraumatic, normocephalic Eye exam: PRESENT: conjunctiva pink, EOMI, PERRLA. ABSENT: scleral icterus Ear exam: PRESENT: normal external ear exam Mouth exam: PRESENT: moist, tongue midline Neck exam: ABSENT: carotid bruit, JVD, lymphadenopathy, thyromegaly Respiratory exam: PRESENT: wheezes - occasional wheezes. ABSENT: rales, rhonchi Cardiovascular exam: PRESENT: RRR. ABSENT: diastolic murmur, rubs, systolic murmur Pulses: PRESENT: normal dorsalis pedis pul GI/Abdominal exam: PRESENT: normal bowel sounds, soft. ABSENT: distended, guarding, mass, organolmegaly, rebound, tenderness Rectal exam: PRESENT: deferred Neurological exam: PRESENT: alert, awake, oriented to person, oriented to place, oriented to time, oriented to situation, CN II-XII grossly intact. ABSENT: motor sensory deficit Results Laboratory Results: 10/01/18 04:20 10/01/18 04:20 09/30/18 09/30/18 10/01/18 20:35 20:35 04:20 WBC 10.7 H 8.3 RBC 4.93 4.80 Hgb 14.1 13.7 Hct 41.3 40.1 MCV 84 84 MCH 28.7 28.5 MCHC 34.2 34.1 RDW 13.6 13.5 Plt Count 351 323 Seg Neutrophils % 50.1 Not Reportable Lymphocytes % 24.3 Not Reportable Monocytes % 6.0 Not Reportable Eosinophils % 19.1 H Not Reportable Basophils % 0.5 Not Reportable Absolute Neutrophils 5.4 Not Reportable Absolute Lymphocytes 2.6 Not Reportable Absolute Monocytes 0.6 Not Reportable Absolute Eosinophils 2.1 H Not Reportable Absolute Basophils 0.1 Not Reportable Sodium 139.8 Potassium 3.9 Chloride 106 Carbon Dioxide 27 Anion Gap 7 BUN 10 Creatinine 0.88 Est GFR ( Amer) > 60 Est GFR (Non-Af Amer) > 60 Glucose 103 Calcium 9.0 10/01/18 04:20 WBC RBC Hgb Hct MCV MCH MCHC RDW Plt Count Seg Neutrophils % Lymphocytes % Monocytes % Eosinophils % Basophils % Absolute Neutrophils Absolute Lymphocytes Absolute Monocytes Absolute Eosinophils Absolute Basophils Sodium 138.8 Potassium 4.4 Chloride 106 Carbon Dioxide 22 Anion Gap 11 BUN 11 Creatinine 0.83 Est GFR ( Amer) > 60 Est GFR (Non-Af Amer) > 60 Glucose 220 H Calcium 9.2 09/30/18 20:35 NT-Pro-B Natriuret Pep 51 Impressions: Chest X-Ray 09/30/18 20:17 IMPRESSION: No acute cardiopulmonary disease. copyright 2010 [employer]- All Rights Reserved Assessment & Plan - Diagnosis (1) Acute respiratory failure with hypoxia Is this a current diagnosis for this admission?: Yes Plan: Secondary to asthma exacerbation. Weaned off BIPAP. Now saturating well on 3L via NC. (2) Asthma exacerbation Qualifiers: Asthma severity: moderate Asthma persistence: persistent Qualified Code(s): J45.41 - Moderate persistent asthma with (acute) exacerbation Is this a current diagnosis for this admission?: Yes Plan: Decrease solumedrol from 125 mg q8 to 40 mg q12h. Continue breathing treatments. Flu negative. - Time Time Spent with patient: 25-34 minutes
[2018-10-01] MEDS: METHYLPREDNISOLONE INJ 40 MG/1 ML SDV IV SCH (17:07)
[2018-10-01] MEDS: GUAIFENESIN SYRP 200 MG/10 ML UDC PO PRN (22:37)
[2018-10-01] MEDS: LEVOFLOXACIN 750 MG/D5W RTU 750 MG/150 ML RTUPB IV SCH (22:38)
[2018-10-02] MEDS: ALBUTEROL SULFATE 0.083% NEB 2.5 MG/3 ML AMPUL NEB SCH ×4 (03:09→20:38)
[2018-10-02] MEDS: HEPARIN SOD (PORCINE) 5,000 UNIT/ML 1 ML SYRINGE SUBCUT SCH ×3 (06:01→22:00)
[2018-10-02] MEDS: METHYLPREDNISOLONE INJ 40 MG/1 ML SDV IV SCH ×3 (06:06→22:00)
[2018-10-02] MEDS: LANSOPRAZOLE 30 MG TAB.RAP.DR PO SCH ×2 (06:07→18:06)
[2018-10-02] MEDS: FLUTICASONE NASAL SPRAY 50 MCG/SPRY 120 SPRAY/16 GM NASL SCH ×2 (10:18→22:03)
--- NOTE | 2018-10-02 14:06 | PDOC PROGRESS REPORT ---
Subjective Progress Note for:: 10/02/18 Subjective:: This is a 43 year old female with a past medical history of poorly controlled asthma, GERD, hypertension, and morbid obesity who presented with rhinorrhea, postnasal drip and wheezing. She was admitted for asthma exacerbation. She was initially placed on BIPAP and was given IV steroids and breathing treatments. 10/01/18: No acute event overnight. She has been weaned off BIPAP and is currently saturating well on 3L via NC. She says her breathing has slightly improved today. Denies chest pain. She does say she has been having more frequent asthma attacks in the past several months. 10/02/18: No acute issues overnight. She says she still feels short of breath tod ay. Saturating well on 3L via NC. On exam, she has more wheezing today. No fever or chills. Reason For Visit: ASTHMA EXACERBATION ACUTE BRONCHITIS Physical Exam Vital Signs: Temp Pulse Resp BP Pulse Ox 97.7 F 68 16 132/66 H 96 10/02/18 12:00 10/02/18 12:00 10/02/18 12:00 10/02/18 12:00 10/02/18 12:00 Intake & Output 10/01/18 10/02/18 10/03/18 06:59 06:59 06:59 Intake Total 1348 1710 Balance 1348 1710 Weight 281 lb 4.957 oz 279 lb 5.211 oz General appearance: PRESENT: no acute distress, well-developed, well-nourished Head exam: PRESENT: atraumatic, normocephalic Eye exam: PRESENT: conjunctiva pink, EOMI, PERRLA. ABSENT: scleral icterus Ear exam: PRESENT: normal external ear exam Mouth exam: PRESENT: moist, tongue midline Neck exam: ABSENT: carotid bruit, JVD, lymphadenopathy, thyromegaly Respiratory exam: PRESENT: wheezes. ABSENT: rales, rhonchi Cardiovascular exam: PRESENT: RRR. ABSENT: diastolic murmur, rubs, systolic murmur Pulses: PRESENT: normal dorsalis pedis pul GI/Abdominal exam: PRESENT: normal bowel sounds, soft. ABSENT: distended, guarding, mass, organolmegaly, rebound, tenderness Rectal exam: PRESENT: deferred Extremities exam: PRESENT: full ROM. ABSENT: calf tenderness, clubbing, pedal edema Neurological exam: PRESENT: alert, awake, oriented to person, oriented to place, oriented to time, oriented to situation, CN II-XII grossly intact. ABSENT: motor sensory deficit Results Laboratory Results: 10/01/18 04:20 10/01/18 04:20 09/30/18 20:35 NT-Pro-B Natriuret Pep 51 Impressions: Chest X-Ray 09/30/18 20:17 IMPRESSION: No acute cardiopulmonary disease. copyright 2010 [employer]- All Rights Reserved Assessment & Plan - Diagnosis (1) Acute respiratory failure with hypoxia Is this a current diagnosis for this admission?: Yes Plan: Secondary to asthma exacerbation. Weaned off BIPAP. Now saturating well on 3L via NC. (2) Asthma exacerbation Qualifiers: Asthma severity: moderate Asthma persistence: persistent Qualified Code(s): J45.41 - Moderate persistent asthma with (acute) exacerbation Is this a current diagnosis for this admission?: Yes Plan: Increase solumedrol to 40 mg q8h. Continue breathing treatments. Patient appears to be on appropriate asthma inhalers but she says she lives with her parents and sleeps on a couch with bedbugs and there are dogs at the house as well. Advised that animal dander is likely triggering her exacerbations. She does say she has plans to move out to a new place. - Time Time Spent with patient: 25-34 minutes
[2018-10-02] MEDS: LEVOFLOXACIN 750 MG/D5W RTU 750 MG/150 ML RTUPB IV SCH (22:01)
[2018-10-02] MEDS: GUAIFENESIN SYRP 200 MG/10 ML UDC PO PRN (22:05)
[2018-10-03] MEDS: ALBUTEROL SULFATE 0.083% NEB 2.5 MG/3 ML AMPUL NEB SCH ×3 (01:17→13:28)
[2018-10-03] MEDS: HEPARIN SOD (PORCINE) 5,000 UNIT/ML 1 ML SYRINGE SUBCUT SCH ×2 (05:45→14:39)
[2018-10-03] MEDS: LANSOPRAZOLE 30 MG TAB.RAP.DR PO SCH (05:47)
[2018-10-03] MEDS: METHYLPREDNISOLONE INJ 40 MG/1 ML SDV IV SCH (05:48)
[2018-10-03] MEDS: FLUTICASONE NASAL SPRAY 50 MCG/SPRY 120 SPRAY/16 GM NASL SCH (09:56)
[2018-10-03 12:48] VITALS: BP 121/70
--- NOTE | 2018-10-03 17:01 | PDOC DISCHARGE SUMMARY ---
General - Admit/Disc Date/PCP Admission Date/Primary Care Provider: 10/01/18 00:01 Discharge Date: 10/03/18 - Discharge Diagnosis (1) Asthma exacerbation Is this a current diagnosis for this admission?: Yes Summary: Responded well to steroids and bronchodilators. Room air SPO2 was 99% at rest. (2) Morbid (severe) obesity due to excess calories Is this a current diagnosis for this admission?: Yes Summary: Encouraged lifestyle modification. - Additional Information Resuscitation Status: Full Code Discharge Diet: Cardiac Discharge Activity: Activity As Tolerated Prescriptions: Levofloxacin [Levaquin 500 mg Tablet] 500 mg PO QHS #5 tablet Prednisone [Deltasone 20 mg Tablet] 40 mg PO DAILY #10 tablet Home Medications: Albuterol Sulfate [Proair HFA] 2 puff IN Q4HP PRN 04/07/17 Lisinopril 10 mg PO DAILY 04/07/17 Omeprazole 20 mg PO DAILY 04/07/17 Fluticasone/Salmeterol [Advair 250-50 Diskus 14 Dose/Diskus] 1 puff IH Q12 07/02/17 Ipratropium/Albuterol Sulfate [Duoneb 3 ml Ampul] 3 ml NEB RTQIDP PRN 08/06/18 Fluticasone Propionate [Flonase Nasal Holcomb 50 Mcg/Holcomb 16 gm] 2 spray NASL Q12 #1 spray.pump 08/07/18 Levofloxacin [Levaquin 500 mg Tablet] 500 mg PO QHS #5 tablet 10/03/18 Prednisone [Deltasone 20 mg Tablet] 40 mg PO DAILY #10 tablet 10/03/18 History of Present Illness History of Present Illness: SHEREEN ADORNO is a 43 year old female with a past medical history of asthma, GERD and morbid obesity. She presents with an exacerbation of shortness of breath with wheeze over the last 24 hours of increasing intensity despite use of albuterol nebulizer. She complains of rhinorrhea and a postnasal drip. Otherwise has no exposures to known triggers. She denies history of intubation or recent missing medications. In the emergency room she requires BiPAP and continuous albuterol Atrovent, Solu-Medrol with minimal improvement. She is referred to the hospitalist for admission Hospital Course Hospital Course: She responded very well to steroids and bronchodilators. She initially required oxygen, but was able to come off that completely at time of discharge. She will finish a course of prednisone and antibiotics at home. Her labs and examination were reassuring and she was discharged in good condition. Physical Exam Vital Signs: Temp Pulse Resp BP Pulse Ox 98.2 F 85 14 121/70 97 10/03/18 14:47 10/03/18 14:47 10/03/18 14:47 10/03/18 14:47 10/03/18 14:47 Intake & Output 10/02/18 10/03/18 10/04/18 06:59 06:59 06:59 Intake Total 1710 1874 Balance 1710 1874 Weight 126.7 kg 127.9 kg General appearance: PRESENT: no acute distress, cooperative, disheveled, morbidly obese Respiratory exam: PRESENT: decreased breath sounds, symmetrical, unlabored. ABSENT: accessory muscle use, crackles, prolonged expiratory phas, rhonchi, tachypnea, wheezes Cardiovascular exam: PRESENT: RRR, +S1, +S2 Vascular exam: PRESENT: normal capillary refill GI/Abdominal exam: PRESENT: normal bowel sounds, soft. ABSENT: distended, guarding, rebound, tenderness Extremities exam: ABSENT: clubbing, pedal edema Musculoskeletal exam: PRESENT: normal inspection. ABSENT: deformity Neurological exam: PRESENT: alert, awake, oriented to person, oriented to place, oriented to time, oriented to situation Psychiatric exam: PRESENT: appropriate affect, normal mood Skin exam: PRESENT: dry, warm Results Laboratory Results: 10/01/18 04:20 10/01/18 04:20 09/30/18 20:35 NT-Pro-B Natriuret Pep 51 Impressions: Chest X-Ray 09/30/18 20:17 IMPRESSION: No acute cardiopulmonary disease. copyright 2010 [employer]- All Rights Reserved Qualifiers - * PATIENT BEING DISCHARGED WITH ANY OF THE FOLLOWING DIAGNOSIS: No
[2018-10-03] MEDS ORDERED: LEVOFLOXACIN 500 MG TABLET PO SCH (22:00)
== END 2018-10-03 15:32 | disposition home or self-care (01) | DRG 189 ==
LOC: ER 20:10 → EH 10-01 00:01 → 5 10-01 02:20
PROVIDERS: ADMIT Internal Medicine; ATTEND Internal Medicine
DX: J96.01 Acute respiratory failure with hypoxia (principal); J45.41 Moderate persistent asthma with (acute) exacerbation; Z68.41 Body mass index [BMI] 40.0-44.9, adult; J06.9 Acute upper respiratory infection, unspecified; I10 Essential (primary) hypertension; K21.9 Gastro-esophageal reflux disease without esophagitis; F41.8 Other specified anxiety disorders; E66.01 Morbid (severe) obesity due to excess calories; Z79.51 Long term (current) use of inhaled steroids; Z79.52 Long term (current) use of systemic steroids; Z79.899 Other long term (current) drug therapy
CPT/HCPCS: 36415; 71045; 80048; 83880; 85025; 87804; 94640; 94660; 96361; 96365; 96366; 99291; J1644; J1956; J2060; J2920; J2930; J3475; J3490; J7030

== ENCOUNTER 2018-11-01 20:49 | Emergency (ER) | payer MEDICAID ==
--- NOTE | 2018-11-01 21:38 | RADIOLOGY REPORT (SQ) ---
EXAM DESCRIPTION: XR KNEE 4 OR MORE VIEWS COMPLETED DATE/TME: 11/01/2018 00:00 CLINICAL HISTORY: 43 years, Female, pain COMPARISON: None. NUMBER OF VIEWS: 4 TECHNIQUE: 4 view right knee LIMITATIONS: None. FINDINGS: Negative for fracture or dislocation. Soft tissues are unremarkable IMPRESSION: Negative exam copyright 2010 [employer]- All Rights Reserved
[2018-11-02] MEDS ORDERED: HYDROCODONE/ACETAMINOPHEN 5-325 MG (6 TAB/ER DISP) PO PRN (00:26)
--- NOTE | 2018-11-02 00:27 | ER Document Report ---
HPI - HPI Patient complains to provider of: Right knee pain Time Seen by Provider: 11/02/18 00:17 Onset: Other - 3 days Onset/Duration: Persistent Quality of pain: Achy Pain Level: 5 Context: Patient presents complaining of right knee pain for the past 3 days. Patient denies any injury. Patient complains of pain with range of motion. Patient denies any history of gout. Associated Symptoms: denies: Fever Exacerbated by: Standing, Movement, Walking Relieved by: Denies Similar symptoms previously: No Recently seen / treated by doctor: No - ROS ROS below otherwise negative: Yes Systems Reviewed and Negative: Yes All other systems reviewed and negative - CONSTITUTIONAL Constitutional: DENIES: Fever, Chills - NEURO Neurology: DENIES: Weakness - GASTROINTESTINAL Gastrointestinal: DENIES: Nausea - REPRODUCTIVE Reproductive: DENIES: : - MUSCULOSKELETAL Musculoskeletal: REPORTS: Extremity pain - DERM Skin Color: Normal Skin Problems: None Past Medical History - General Information source: Patient - Social History Smoking Status: Never Smoker Frequency of alcohol use: None Drug Abuse: None Occupation: None Family History: Hypertension. denies: Arthritis, CAD, CVA, DM, Hyperlipidemia, Malignancy, Thyroid Disfunction - Past Medical History Cardiac Medical History: Reports: Hx Hypertension Pulmonary Medical History: Reports: Hx Asthma, Hx Bronchitis Renal/ Medical History: Denies: Hx Peritoneal Dialysis GI Medical History: Reports: Hx Gastroesophageal Reflux Disease Psychiatric Medical History: Reports: Hx Anxiety, Hx Depression Past Surgical History: Reports: Hx Appendectomy, Hx Section - X2, Hx Hysterectomy, Hx Tubal Ligation - Immunizations Immunizations up to date: No Hx Diphtheria, Pertussis, Tetanus Vaccination: Yes Hx Pneumococcal Vaccination: 09/12/15 Vertical Provider Document - CONSTITUTIONAL Agree With Documented VS: Yes Exam Limitations: No Limitations General Appearance: WD/WN, No Apparent Distress - INFECTION CONTROL TRAVEL OUTSIDE OF THE [place] IN LAST 30 DAYS: No - HEENT HEENT: Atraumatic, Normocephalic - NECK Neck: Normal Inspection - RESPIRATORY Respiratory: No Respiratory Distress - CARDIOVASCULAR Pulses: Normal: Dorsalis pedis - MUSCULOSKELETAL/EXTREMETIES Musculoskeletal/Extremeties: MAEW, FROM, Tender - Right knee joint tenderness along the joint line, no effusion, no laxity with varus or valgus maneuvers. Normal skin color and temperature overlying joint. negative: Edema - NEURO Level of Consciousness: Awake, Alert, Appropriate Motor/Sensory: No Motor Deficit - DERM Integumentary: Warm, Dry Course - Re-evaluation Re-evalutation: 11/02/18 00:29 Patient with good range of motion to right knee joint, no concern for septic arthritis or gout. Patient with nontraumatic right knee pain. Discussed weight management to help alleviate stress load on the joint. Patient encouraged to follow-up with primary doctor or orthopedics for any persistent pain or problems - Vital Signs Vital signs: Temp Pulse Resp BP Pulse Ox 98.1 F 94 16 136/88 H 96 11/01/18 20:57 11/01/18 20:57 11/01/18 20:57 11/01/18 20:57 11/01/18 20:57 - Diagnostic Test Radiology reviewed: Reports reviewed Procedures - Immobilization Right Knee Pre-Proc Neuro Vasc Exam: Normal Immobilizer type: Knee immobilizer Performed by: RN Post-Proc Neuro Vasc Exam: Normal Alignment checked and good: Yes Discharge - Discharge Clinical Impression: Arthralgia Qualifiers: Joint pain location: knee Laterality: right Qualified Code(s): M25.561 - Pain in right knee Right knee pain Qualifiers: Chronicity: acute Qualified Code(s): M25.561 - Pain in right knee Condition: Stable Disposition: HOME, SELF-CARE Instructions: Acetaminophen, Arthritis ([facility]), Use of Crutches ([facility]), Knee Immobilizing Splint ([facility]) Additional Instructions: Return immediately for any new or worsening symptoms Followup with your primary care provider, call tomorrow to make a followup appointment Weightbearing as tolerated follow-up with orthopedics for any persistent pain or problems Prescriptions: Diclofenac Sodium [Voltaren] 1 applic TP QID PRN #100 gel..gm. PRN Reason: Referrals: YOHANA LONDON MD [NO LOCAL MD] - Follow up as needed [facility] [Provider Group] - Follow up as needed
[2018-11-02 00:45] VITALS: BP 117/69
== END 2018-11-02 01:15 | disposition home or self-care (01) ==
LOC: ER 20:49
DX: M25.561 Pain in right knee (principal); I10 Essential (primary) hypertension; J45.909 Unspecified asthma, uncomplicated
CPT/HCPCS: 99283; 73564; L1830

== ENCOUNTER 2018-12-17 19:39 | Inpatient (IN) | payer MEDICAID ==
[2018-12-17] MEDS ORDERED: MAGNESIUM SULFATE/D5W 1 GM/100 ML RTUPB IV ONE ×2 (20:28→20:29)
[2018-12-17] MEDS ORDERED: ONDANSETRON HCL INJ/PF 4 MG/2 ML SDV IV ONE (20:28)
[2018-12-17] MEDS ORDERED: IPRATROPIUM/ALBUTEROL 0.5-2.5 MG/3 ML AMPUL NEB ONE (20:28)
--- NOTE | 2018-12-17 20:31 | ER Document Report ---
ED Medical Screen (RME) - General Chief Complaint: Nausea/Vomiting Stated Complaint: WEAKNESS Time Seen by Provider: 12/17/18 20:24 TRAVEL OUTSIDE OF THE [place] IN LAST 30 DAYS: No - HPI Notes: 12/17/18 20:29 Patient is a 43-year-old female with a history of asthma who presents emergency department complaining of nasal congestion/discharge, semi-productive cough, wheezing over the past 1-2 months, but increasing over the last several days. Patient states that she also started having nausea, vomiting, and watery diarrhea over the past few days. She had one episode of hematemesis today which prompted her to come the emergency department. She is not on any blood thinning medications. Denies smoking. Denies SANTOS, fever, neck pain, CP, current Abd pain, or rash. I have treated and performed a rapid initial assessment of this patient. A comprehensive ED assessment and evaluation of the patient, analysis of test results and completion of medical decision making process will be conducted by additional ED providers. PHYSICAL EXAMINATION: GENERAL: Well-appearing, well-nourished and in no acute distress. A&Ox4. Answers questions appropriately. LUNGS: wheezing and diminished b/l. No retractions. HEART: Regular rate and rhythm without murmurs, rubs, gallops. ABDOMEN: Soft, nondistended abdomen. No guarding, no rebound. Normal bowel sounds present. No CVA tenderness bilaterally. nontender. (cannot elicit thorough abd exam w/o table, however). Extremities: No cyanosis, clubbing, or edema b/l. NEUROLOGICAL: Normal speech, normal gait. PSYCH: Normal mood, normal affect. - Related Data Allergies/Adverse Reactions: No Known Allergies Allergy (Verified 09/30/18 21:22) Past Medical History - Social History Chew tobacco use (# tins/day): No Frequency of alcohol use: None Drug Abuse: None - Past Medical History Cardiac Medical History: Reports: Hx Hypertension Denies: Hx Coronary Artery Disease, Hx DVT, Hx Pulmonary Embolism Pulmonary Medical History: Reports: Hx Asthma, Hx Bronchitis Renal/ Medical History: Denies: Hx Peritoneal Dialysis GI Medical History: Reports: Hx Gastroesophageal Reflux Disease Psychiatric Medical History: Reports: Hx Anxiety, Hx Depression Past Surgical History: Reports: Hx Appendectomy, Hx Section - X2, Hx Hysterectomy, Hx Tubal Ligation - Immunizations Immunizations up to date: No Hx Diphtheria, Pertussis, Tetanus Vaccination: Yes Physical Exam - Vital signs Vitals: Temp Pulse Resp BP Pulse Ox 98.6 F 104 H 18 139/95 H 88 L 12/17/18 19:47 12/17/18 19:47 12/17/18 19:47 12/17/18 19:47 12/17/18 19:47 Course - Vital Signs Vital signs: Temp Pulse Resp BP Pulse Ox 98.6 F 104 H 18 139/95 H 96 12/17/18 19:47 12/17/18 19:47 12/17/18 19:47 12/17/18 19:47 12/17/18 20:00
[2018-12-17 21:13] LABS: ABSOLUTE BASOPHILS # (AUTO) 0.1 10^3/uL (0.0-0.2); ABSOLUTE EOSINOPHILS # (AUTO) 1.8 10^3/uL (0.0-0.6); ABSOLUTE LYMPHOCYTES (AUTO) 1.6 10^3/uL (0.5-4.7); ABSOLUTE MONOCYTES (AUTO) 0.8 10^3/uL (0.1-1.4); ABSOLUTE NEUT (AUTO) 5.8 10^3/uL (1.7-8.2); BASOPHILS % (AUTO) 0.6 % (0-2); HEMATOCRIT 41.7 % (36.0-47.0); HEMOGLOBIN 14.4 g/dL (12.0-15.5); LYMPHOCYTES % (AUTO) 15.9 % (13-45); MEAN CORPUSCULAR HEMOGLOBIN 29.5 pg (27.0-33.4); MEAN CORPUSCULAR HGB CONC 34.5 g/dL (32.0-36.0); MEAN CORPUSCULAR VOLUME 86 fl (80-97); MONOCYTES % (AUTO) 7.8 % (3-13); PLATELET COUNT 342 10^3/uL (150-450); RED BLOOD COUNT 4.87 10^6/uL (3.72-5.28); RED CELL DISTRIBUTION WIDTH 13.4 % (11.5-14.0); SEGMENTED NEUTROPHILS % (AUTO) 57.7 % (42-78); TOTAL CELLS COUNTED % (AUTO) 100 %; WHITE BLOOD COUNT 10.1 10^3/uL (4.0-10.5)
[2018-12-17 21:26] LABS: ALANINE AMINOTRANSFERASE 23 U/L (9-52); ALBUMIN 4.1 g/dL (3.5-5.0); ALKALINE PHOSPHATASE 63 U/L (38-126); ASPARTATE AMINO TRANSFERASE 20 U/L (14-36); BILIRUBIN,DIRECT 0.3 mg/dL (0.0-0.4); BILIRUBIN,TOTAL 0.4 mg/dL (0.2-1.3); BLOOD UREA NITROGEN 13 mg/dL (7-20); CALCIUM 9.4 mg/dL (8.4-10.2); CARBON DIOXIDE 25 mmol/L (22-30); CHLORIDE 105 mmol/L (98-107); GLUCOSE 96 mg/dL (75-110); LIPASE 120.2 U/L (23-300); POTASSIUM 3.9 mmol/L (3.6-5.0); TOTAL PROTEIN 7.6 g/dL (6.3-8.2)
[2018-12-17 21:27] LABS: ANION GAP 10 (5-19); SODIUM 139.5 mmol/L (137-145)
--- NOTE | 2018-12-17 21:54 | RADIOLOGY REPORT (SQ) ---
EXAM DESCRIPTION: [facility]: XR CHEST 2 VIEWS Views: 2 CLINICAL HISTORY: 43 years Female, cough, wheeze COMPARISON: 09/30/2018, 08/05/2018, 06/18/2018 FINDINGS: There is a very subtle density in the left midlung field, likely in the lingula, new since the prior exams. Lungs are otherwise clear. No pneumothorax or pleural effusion. Cardiomediastinal silhouette is within normal limits. Bony structures are unremarkable for age. IMPRESSION: 1. Very subtle density in the lingula, possibly an early pneumonia. Please correlate with current symptoms.
[2018-12-17] MEDS ORDERED: ALBUTEROL SULFATE 0.083% NEB 2.5 MG/3 ML AMPUL NEB ONE (22:09)
[2018-12-17] MEDS ORDERED: RINGERS SOLUTION,LACTATED 1,000 ML IV ONE (22:10)
--- NOTE | 2018-12-17 22:11 | ER Document Report ---
ED General - General Chief Complaint: Nausea/Vomiting Stated Complaint: WEAKNESS Time Seen by Provider: 12/17/18 20:24 Notes: Patient is a 43-year-old female with a past medical history of morbid obesity, asthma, presents complaining of shortness of breath that started earlier today, has gotten progressively worse throughout the day today. Has been using home nebulizer treatments with minimal improvement. Nothing seems to worsen her symptoms. States this feels very similar to asthma exacerbations that warrant hospitalization in the past. She reports that she has had cough with sputum production, feels warm but has not recorded a fever at home. Regards her symptoms as being moderate to severe. Gradual in onset and worsening since that time. Has not seen her primary care doctor regarding today's concerns. TRAVEL OUTSIDE OF THE [place] IN LAST 30 DAYS: No - Related Data Allergies/Adverse Reactions: No Known Allergies Allergy (Verified 12/17/18 21:46) Past Medical History - General Information source: Patient - Social History Smoking Status: Never Smoker Chew tobacco use (# tins/day): No Frequency of alcohol use: None Drug Abuse: None Lives with: Family Family History: Hypertension. denies: Arthritis, CAD, CVA, DM, Hyperlipidemia, Malignancy, Thyroid Disfunction Patient has suicidal ideation: No Patient has homicidal ideation: No - Past Medical History Cardiac Medical History: Reports: Hx Hypertension Denies: Hx Coronary Artery Disease, Hx DVT, Hx Pulmonary Embolism Pulmonary Medical History: Reports: Hx Asthma, Hx Bronchitis Renal/ Medical History: Denies: Hx Peritoneal Dialysis GI Medical History: Reports: Hx Gastroesophageal Reflux Disease Psychiatric Medical History: Reports: Hx Anxiety, Hx Depression Past Surgical History: Reports: Hx Appendectomy, Hx Section - X2, Hx Hysterectomy, Hx Tubal Ligation - Immunizations Immunizations up to date: No Hx Diphtheria, Pertussis, Tetanus Vaccination: Yes Hx Pneumococcal Vaccination: 09/12/15 Review of Systems - Review of Systems Notes: Constitutional: Negative for fever. HENT: Negative for sore throat. Eyes: Negative for visual changes. Cardiovascular: Negative for chest pain. Respiratory: Positive shortness of breath and cough Gastrointestinal: Negative for abdominal pain, vomiting or diarrhea. Genitourinary: Negative for dysuria. Musculoskeletal: Negative for back pain. Skin: Negative for rash. Neurological: Negative for headaches, weakness or numbness. 10 point ROS negative except as marked above and in HPI. Physical Exam - Vital signs Vitals: Temp Pulse Resp BP Pulse Ox 98.6 F 104 H 18 139/95 H 88 L 12/17/18 19:47 12/17/18 19:47 12/17/18 19:47 12/17/18 19:47 12/17/18 19:47 Interpretation: Tachycardic, Hypoxic, Tachypneic Notes: PHYSICAL EXAMINATION: GENERAL: Mildly uncomfortable in appearance, no acute distress HEAD: Atraumatic, normocephalic. EYES: Pupils equal round and reactive to light, extraocular movements intact, sclera anicteric, conjunctiva are normal. ENT: nares patent, oropharynx clear without exudates. Mild dry mucous membranes. NECK: Normal range of motion, supple without lymphadenopathy LUNGS: Scattered expiratory wheezing in all lung mcqueen with globally diminished air movement throughout. Minimal tachypnea. HEART: Regular rate and rhythm without murmurs ABDOMEN: Soft, nontender, normoactive bowel sounds. No guarding, no rebound. No masses appreciated. EXTREMITIES: Normal range of motion, no pitting or edema. No cyanosis. NEUROLOGICAL: No focal neurological deficits. Moves all extremities spontaneously and on command. PSYCH: Normal mood, normal affect. SKIN: Warm, Dry, normal turgor, no rashes or lesions noted. Course - Re-evaluation Re-evalutation: 12/17/18 22:10 Patient presents with hypoxia, tachypnea, improved after receiving continuous nebs as by EMS. On my assessment the patient has coarse expiratory wheezing in all lung mcqueen, mild tachypnea with respiratory rate of 23 but in no distress. The patient did receive Solu-Medrol by EMS. He received 2 g of magnesium, continuous nebs here in the emergency department but maintained oxygen saturations below 90% on room air. Chest x-ray shows possible lingular pneumonia which would be consistent with patient's increased work of breathing, cough and sputum production. IV levofloxacin has been started. I will discuss with the hospitalist for admission. - Vital Signs Vital signs: Temp Pulse Resp BP Pulse Ox 97.7 F 90 24 H 124/86 H 96 12/18/18 02:24 12/18/18 03:25 12/18/18 03:25 12/18/18 02:24 12/18/18 03:25 - Laboratory Result Diagrams: 12/17/18 20:55 12/17/18 20:55 Laboratory results interpreted by me: 12/17/18 12/17/18 20:55 22:36 Eosinophils % 18.0 H Absolute Eosinophils 1.8 H Urine Blood LARGE H Ur Leukocyte Esterase SMALL H - Diagnostic Test Radiology reviewed: Image reviewed, Reports reviewed Radiology results interpreted by me: 12/17/18 22:11 Chest x-ray: Possible lingular infiltrate Discharge - Discharge Clinical Impression: Morbid (severe) obesity due to excess calories, Lingular pneumonia, Acute respiratory failure with hypoxia Asthma exacerbation Qualifiers: Asthma severity: moderate Asthma persistence: persistent Qualified Code(s): J45.41 - Moderate persistent asthma with (acute) exacerbation Condition: Fair Disposition: ADMITTED INPATIENT Admitting Provider: Gabrielle (Hospitalist) Unit Admitted: Telemetry
[2018-12-17] MEDS ORDERED: LEVOFLOXACIN 750 MG/D5W RTU 750 MG/150 ML RTUPB IV ONE (23:00)
[2018-12-17 23:29] LABS: AMORPHOUS SEDIMENT,URINE TRACE /HPF; APPEARANCE,URINE CLOUDY; BILIRUBIN,URINE NEGATIVE (NEGATIVE); COLOR,URINE YELLOW; GLUCOSE, URINE NEGATIVE (NEGATIVE); KETONES,URINE NEGATIVE (NEGATIVE); LEUKOCYTE ESTERASE,URINE SMALL (NEGATIVE); NITRITE,URINE NEGATIVE (NEGATIVE); PROTEIN,URINE NEGATIVE (NEGATIVE); URINE SPECIFIC GRAVITY 1.027; UROBILINOGEN,URINE NEGATIVE mg/dL (<2.0)
[2018-12-17] MEDS ORDERED: ZOLPIDEM TARTRATE 5 MG TABLET PO PRN (23:29)
[2018-12-17] MEDS ORDERED: MAGNESIUM HYDROXIDE SUSP 30 ML UDCUP PO PRN (23:29)
[2018-12-17] MEDS ORDERED: ONDANSETRON HCL INJ/PF 4 MG/2 ML SDV IV PRN (23:29)
[2018-12-17] MEDS ORDERED: ACETAMINOPHEN 325 MG TABLET PO PRN (23:29)
[2018-12-17] MEDS ORDERED: MAG HYDROX/AL HYDROX/SIMETH SUSP 30 ML UDCUP PO PRN (23:29)
[2018-12-17] MEDS ORDERED: FLUTICASONE NASAL SPRAY 50 MCG/SPRY 120 SPRAY/16 GM ONE (23:55)
[2018-12-17] MEDS ORDERED: GUAIFENESIN 600 MG TABLET.SA PO ONE (23:59)
[2018-12-17] MEDS ORDERED: FLUTICASONE NASAL SPRAY 50 MCG/SPRY 120 SPRAY/16 GM NASL ONE (23:59)
[2018-12-18] MEDS ORDERED: IPRATROPIUM/ALBUTEROL 0.5-2.5 MG/3 ML AMPUL NEB PRN (01:16)
--- NOTE | 2018-12-18 01:44 | PDOC H&P ---
History of Present Illness Admission Date/PCP: 12/17/18 23:29 Patient complains of: I was coughing blood History of Present Illness: SHEREEN ADORNO is a 43 year old female patient with history of asthma, hypertension and GERD who presented to the emergency room with acute onset of cough productive of blood-tinged sputum as well as dyspnea and wheezing over the last couple of days. Her cough has been intermittent over the last couple of months. She admits to tactile fever without chills. No chest pain or palpitations. No nausea vomiting or abdominal pain. No dysuria, oliguria or hematuria or flank pain. No other bleeding diathesis. Upon presentation to the emergency room her pulse was 104 and blood pressure 139/95 respiratory rate of 18 temperature 98.6 and pulse oximetry 88% on room air. Labs were unremarkable but urinalysis showed 162 RBCs and WBCs with small leukocyte esterase. The patient was given IV Solu-Medrol by EMS and here was given IV mag sulfate, nebulized duo nebs and albuterol and IV Levaquin. Patient will be admitted to an medically monitored bed for further evaluation and management Past Medical History Cardiac Medical History: Reports: Hypertension Denies: Coronary Artery Disease, DVT, Pulmonary Embolism Pulmonary Medical History: Reports: Asthma, Bronchitis GI Medical History: Reports: Gastroesophageal Reflux Disease Psychiatric Medical History: Reports: Depression Past Surgical History Past Surgical History: Reports: Appendectomy, Section - X2, Hysterectomy, Tubal Ligation Social History Smoking Status: Never Smoker Frequency of Alcohol Use: None Hx Recreational Drug Use: No Drugs: None Hx Prescription Drug Abuse: No Family History Family History: Hypertension, Other - Asthma Parental Family History Reviewed: Yes Children Family History Reviewed: Yes Sibling(s) Family History Reviewed.: Yes Medication/Allergy Home Medications: Albuterol Sulfate [Proair HFA] 2 puff IN Q4HP PRN 04/07/17 Lisinopril 10 mg PO DAILY 04/07/17 Omeprazole 20 mg PO DAILY 04/07/17 Fluticasone/Salmeterol [Advair 250-50 Diskus 14 Dose/Diskus] 1 puff IH Q12 07/02/17 Ipratropium/Albuterol Sulfate [Duoneb 3 ml Ampul] 3 ml NEB RTQIDP PRN 08/06/18 Fluticasone Propionate [Flonase Nasal [place] 50 Mcg/[place] 16 gm] 2 spray NASL Q12 #1 spray.pump 08/07/18 Levofloxacin [Levaquin 500 mg Tablet] 500 mg PO QHS #5 tablet 10/03/18 Prednisone [Deltasone 20 mg Tablet] 40 mg PO DAILY #10 tablet 10/03/18 Diclofenac Sodium [Voltaren] 1 applic TP QID PRN #100 gel..gm. 11/02/18 Allergies/Adverse Reactions: No Known Allergies Allergy (Verified 12/17/18 21:46) Review of Systems Review of Systems: As per history of present illness. All pertinent systems were reviewed above. Constitutional, HEENT, cardiovascular, respiratory, GI, , musculoskeletal, neuro, psychiatric, endocrine, integumentary and hematologic systems were reviewed and are otherwise negative/unremarkable except for positive findings mentioned above in the HPI. Physical Exam Vital Signs: Temp Pulse Resp BP Pulse Ox 98.6 F 104 H 28 H 119/80 94 12/17/18 19:47 12/17/18 19:47 12/18/18 01:01 12/18/18 01:01 12/18/18 01:01 Intake & Output 12/16/18 12/17/18 12/18/18 06:59 06:59 06:59 Intake Total 200 Balance 200 Weight 123.3 kg Exam: Generally: Middle-aged female in mild respiratory distress with conversational dyspnea Vital signs-as listed Head - atraumatic, normocephalic. Pupils - equal, round and reactive to light and accommodation. Extraocular movements are intact. No scleral icterus. Oropharynx - moist mucous membranes and tongue. No pharyngeal erythema or exudate. Neck - supple. No JVD. Carotid pulses 2+ bilaterally. No carotid bruits. No palpable thyromegaly or lymphadenopathy. Cardiovascular - regular rate and rhythm. Normal S1 and S2. No murmurs, gallops or rubs. Lungs -slightly diminished bibasilar breath sounds with left basal crackles with residual expiratory wheezes and diminished expiratory airflow with harsh vesicular breathing. Abdomen - soft and nontender. Positive bowel sounds. No palpable organomegaly or masses. Extremities - no pitting edema, clubbing or cyanosis. Neuro - grossly non-focal. Skin - no rashes. Breast, pelvic and rectal - deferred Results Laboratory Results: 12/17/18 20:55 12/17/18 20:55 12/17/18 12/17/18 12/17/18 20:55 20:55 22:36 WBC 10.1 RBC 4.87 Hgb 14.4 Hct 41.7 MCV 86 MCH 29.5 MCHC 34.5 RDW 13.4 Plt Count 342 Seg Neutrophils % 57.7 Lymphocytes % 15.9 Monocytes % 7.8 Eosinophils % 18.0 H Basophils % 0.6 Absolute Neutrophils 5.8 Absolute Lymphocytes 1.6 Absolute Monocytes 0.8 Absolute Eosinophils 1.8 H Absolute Basophils 0.1 Sodium 139.5 Potassium 3.9 Chloride 105 Carbon Dioxide 25 Anion Gap 10 BUN 13 Creatinine 0.85 Est GFR ( Amer) > 60 Est GFR (Non-Af Amer) > 60 Glucose 96 Calcium 9.4 Total Bilirubin 0.4 AST 20 ALT 23 Alkaline Phosphatase 63 Total Protein 7.6 Albumin 4.1 Lipase 120.2 Urine Color YELLOW Urine Appearance CLOUDY Urine pH 5.0 Ur Specific [place] 1.027 Urine Protein NEGATIVE Urine Glucose (UA) NEGATIVE Urine Ketones NEGATIVE Urine Blood LARGE H Urine Nitrite NEGATIVE Ur Leukocyte Esterase SMALL H Urine WBC (Auto) 8 Urine RBC (Auto) 162 Impressions: Chest X-Ray 12/17/18 20:28 IMPRESSION: 1. Very subtle density in the lingula, possibly an early pneumonia. Please correlate with current symptoms. Assessment and Plan - Diagnosis (1) Asthma exacerbation Qualifiers: Asthma severity: moderate Asthma persistence: persistent Qualified Code(s): J45.41 - Moderate persistent asthma with (acute) exacerbation Is this a current diagnosis for this admission?: Yes Plan: The patient will be placed on IV steroid therapy with IV Solu-Medrol as well as nebulized bronchodilator therapy with duonebs q.i.d. and q.4 hours p.r.n., mucolytic therapy with Mucinex. O2 protocol will be followed. (2) Lingular pneumonia Is this a current diagnosis for this admission?: Yes Plan: The patient will be admitted to a medically monitored bed for community-acquired pneumonia and will be placed on IV Levaquin. Mucolytic therapy be provided as well as duo nebs q.i.d. and q.4 hours p.r.n.. Sputum Gram stain culture and sensitivity will be obtained. Will follow Blood Cultures. Her hemoptysis likely secondary to her pneumonia possibly due to forceful cough. Her CBC will be followed in a.m. (3) Hypertension Is this a current diagnosis for this admission?: Yes Plan: We will continue lisinopril (4) GERD (gastroesophageal reflux disease) Is this a current diagnosis for this admission?: Yes Plan: PPI therapy will be provided especially given current steroid therapy and history of GERD (5) DVT prophylaxis Is this a current diagnosis for this admission?: Yes Plan: Subcutaneous Lovenox - Time Within: within 72 hours - Inpatient Certification Medical Necessity: Need for Nebulizer Therapy and Monitoring of Response, Need for IV Antibiotics, Risk of Complication if Not Cared For in Hospital - Plan Summary Plan Summary: The plan of care was discussed in details with the patient. I answered all questions. The patient agreed to proceed with the above-mentioned plan. The patient is presumably full code. This note was created by [employer] dictating software and may contain typo errors that may have not been proofread.
[2018-12-18] MEDS: METHYLPREDNISOLONE INJ 40 MG/1 ML SDV IV SCH ×3 (02:56→17:26)
[2018-12-18] MEDS: NORMAL SALINE 1000 ML 1,000 ML IV PRN ×2 (03:18→17:27)
[2018-12-18] MEDS: PANTOPRAZOLE SODIUM 40 MG TABLET.DR PO SCH (05:01)
[2018-12-18 06:47] LABS: ABSOLUTE EOSINOPHILS # (AUTO) 0.3 10^3/uL (0.0-0.6); ABSOLUTE LYMPHOCYTES (AUTO) 0.5 10^3/uL (0.5-4.7); ABSOLUTE MONOCYTES (AUTO) 0.1 10^3/uL (0.1-1.4); ABSOLUTE NEUT (AUTO) 7.3 10^3/uL (1.7-8.2); BASOPHILS % (AUTO) 0.4 % (0-2); EOSINOPHILS % (AUTO) 3.9 % (0-6); HEMATOCRIT 39.2 % (36.0-47.0); HEMOGLOBIN 13.5 g/dL (12.0-15.5); LYMPHOCYTES % (AUTO) 6.3 % (13-45); MEAN CORPUSCULAR HEMOGLOBIN 29.3 pg (27.0-33.4); MEAN CORPUSCULAR HGB CONC 34.4 g/dL (32.0-36.0); MEAN CORPUSCULAR VOLUME 85 fl (80-97); MONOCYTES % (AUTO) 1.7 % (3-13); PLATELET COUNT 306 10^3/uL (150-450); RED CELL DISTRIBUTION WIDTH 13.5 % (11.5-14.0); SEGMENTED NEUTROPHILS % (AUTO) 87.7 % (42-78); TOTAL CELLS COUNTED % (AUTO) 100 %; WHITE BLOOD COUNT 8.3 10^3/uL (4.0-10.5)
[2018-12-18 07:07] LABS: ANION GAP 10 (5-19); BLOOD UREA NITROGEN 10 mg/dL (7-20); CALCIUM 8.9 mg/dL (8.4-10.2); CARBON DIOXIDE 24 mmol/L (22-30); CHLORIDE 104 mmol/L (98-107); GLUCOSE 125 mg/dL (75-110); SODIUM 137.5 mmol/L (137-145)
[2018-12-18] MEDS ORDERED: IPRATROPIUM/ALBUTEROL 0.5-2.5 MG/3 ML AMPUL NEB SCH (08:00)
[2018-12-18] MEDS: GUAIFENESIN 600 MG TABLET.SA PO SCH ×2 (09:38→22:02)
[2018-12-18] MEDS: CETIRIZINE 10 MG TABLET PO SCH (09:39)
[2018-12-18] MEDS: FLUTICASONE NASAL SPRAY 50 MCG/SPRY 120 SPRAY/16 GM NASL SCH ×2 (09:39→22:02)
[2018-12-18] MEDS: ENOXAPARIN SODIUM INJ 40 MG/0.4 ML DISP.SYRIN SUBCUT SCH (09:39)
[2018-12-18] MEDS: LISINOPRIL 10 MG TABLET PO SCH (09:39)
[2018-12-18] MEDS ORDERED: GUAIFENESIN 600 MG TABLET.SA PO SCH (10:00)
--- NOTE | 2018-12-18 10:49 | PROGRESS NOTE E ---
Progress Note NAME: SHEREEN ADORNO : 1975 AGE: 43Y DATE: 12/18/2018 ROOM: 210 The patient is lying in bed. The patient is sleepy this morning. The patient stated she did not get much rest last night and the patient stated that she does feel better. She does have a strong cough, but is unable to produce any sputum. The patient has been afebrile. Her blood pressures have been in a good range, and the patient does not voice any other concerns at this time. BRIEF HISTORY: The patient is a 43-year-old, female that came in last night due to shortness of breath. The patient was noted to be quite tachypneic consistent with asthma exacerbation. The patient had a chest x-ray that showed a questionable lingular pneumonia; however, the patient was referred to the hospitalist for admission and management. The patient was admitted with Levaquin; additionally, Mucinex, nebulizers, and steroids. The patient clinically feels better and the patient's vital signs and labs are in a good range; however, the patient just feels it is too soon for her to go home. REVIEW OF SYSTEMS: The rest of the review of systems is negative. MEDICATIONS: Medications have been reviewed. OBJECTIVE: GENERAL: The patient is a 43-year-old, female who is awake, alert, and oriented to person, place, and situation. She is verbal, conversational, and does not appear to be in any acute distress. VITAL SIGNS: Temperature 98.3, pulse 88, respirations 18, blood pressure is 115/66, oxygen saturation 98% on room air. SKIN: Warm and dry. No rash, not diaphoretic. HEENT: Pupils equal, round, reactive to light and accommodation. Conjunctivae pink. There is no evidence of JVP. CVS: Heart is regular. There is no murmur or rub. CHEST: Diminished, symmetrical, unlabored. ABDOMEN: Obese, soft. EXTREMITIES: There is no edema. PSYCHIATRIC: The patient is quite sleepy. DIAGNOSTICS/LAB VALUES: Hematology obtained on 12/18/2018: WBC is 8.3, hemoglobin 13.5, hematocrit is 39.2, platelet count is 306,000. Chemistries obtained on 12/18/2018: Sodium is 137, potassium is 4.0, chloride is 104, carbon dioxide 24, BUN 10, creatinine is 0.7, glucose 125, calcium is 8.9. IMPRESSION AND PLAN: 1. ASTHMA EXACERBATION THAT IS MODERATE AND PERSISTENT: The patient will be on IV steroids. Additionally, I did add Singulair at bedtime. The patient does not have any significant wheezing. Will add nebulizers p.r.n. 2. LINGULAR PNEUMONIA: The patient was covered with IV Levaquin for community-acquired pneumonia. Additionally, the patient has been unable to produce any significant sputum. Will continue mucolytic therapy as well. 3. HYPERTENSION: Continue lisinopril. 4. GERD: Continue PPI. 5. DVT PROPHYLAXIS: The patient is on subcutaneous Lovenox. 6. MORBID OBESITY WITH A BMI OF 43.7: Will encourage weight reduction. DISPOSITION: The patient is a FULL CODE. Pending patient's symptomatology and diagnostic findings, will reevaluate in the a.m. Time spent on this followup including assessment, plan, physical examination, patient education, and review of records is 25 minutes. DICTATING PHYSICIAN: THALIA SANCHES NP [id number] PHY#: [id number] ID: [id number] JOB#: [id number] ACCT: [id number] cc: >
[2018-12-18] MEDS: ALBUTEROL SULFATE 0.083% NEB 2.5 MG/3 ML AMPUL NEB PRN (17:37)
[2018-12-18] MEDS: MONTELUKAST SODIUM 10 MG TABLET PO SCH (22:02)
[2018-12-18] MEDS: LEVOFLOXACIN 750 MG/D5W RTU 750 MG/150 ML RTUPB IV SCH (22:03)
[2018-12-19] MEDS: ALBUTEROL SULFATE 0.083% NEB 2.5 MG/3 ML AMPUL NEB PRN ×3 (01:05→16:59)
[2018-12-19] MEDS: NORMAL SALINE 1000 ML 1,000 ML IV PRN ×3 (01:40→21:03)
[2018-12-19] MEDS: METHYLPREDNISOLONE INJ 40 MG/1 ML SDV IV SCH ×3 (02:23→17:41)
[2018-12-19] MEDS: PANTOPRAZOLE SODIUM 40 MG TABLET.DR PO SCH (05:55)
[2018-12-19 07:40] LABS: HEMATOCRIT 39.8 % (36.0-47.0); HEMOGLOBIN 13.2 g/dL (12.0-15.5); MEAN CORPUSCULAR HEMOGLOBIN 28.7 pg (27.0-33.4); MEAN CORPUSCULAR HGB CONC 33.3 g/dL (32.0-36.0); MEAN CORPUSCULAR VOLUME 86 fl (80-97); PLATELET COUNT 327 10^3/uL (150-450); RED BLOOD COUNT 4.61 10^6/uL (3.72-5.28); RED CELL DISTRIBUTION WIDTH 13.5 % (11.5-14.0); WHITE BLOOD COUNT 12.4 10^3/uL (4.0-10.5)
[2018-12-19 08:15] LABS: ABSOLUTE LYMPHOCYTES# (MANUAL) 1.1 10^3/uL (0.5-4.7); ABSOLUTE NEUTROPHILS# (MANUAL) 11.3 10^3/uL (1.7-8.2); BASOPHILS % (MANUAL) 0 % (0-2); EOSINOPHILS % (MANUAL) 0 % (0-6); LYMPHOCYTES % (MANUAL) 9 % (13-45); MONOCYTES % (MANUAL) 0 % (3-13); SEGMENTED NEUTROPHILS % (MAN) 91 % (42-78); TOTAL CELLS COUNTED 100
[2018-12-19 08:21] LABS: ANISOCYTOSIS SLIGHT; POIKILOCYTOSIS SLIGHT; POLYCHROMASIA SLIGHT
[2018-12-19 08:22] LABS: OVALOCYTES 1+; PLATELET COMMENT ADEQUATE
[2018-12-19 08:38] LABS: ANION GAP 8 (5-19); BLOOD UREA NITROGEN 11 mg/dL (7-20); CALCIUM 8.8 mg/dL (8.4-10.2); CARBON DIOXIDE 27 mmol/L (22-30); CHLORIDE 104 mmol/L (98-107); GLUCOSE 119 mg/dL (75-110); POTASSIUM 4.1 mmol/L (3.6-5.0); SODIUM 138.8 mmol/L (137-145)
[2018-12-19] MEDS: LISINOPRIL 10 MG TABLET PO SCH (09:58)
[2018-12-19] MEDS: CETIRIZINE 10 MG TABLET PO SCH (09:58)
[2018-12-19] MEDS: FLUTICASONE NASAL SPRAY 50 MCG/SPRY 120 SPRAY/16 GM NASL SCH ×2 (09:58→21:02)
[2018-12-19] MEDS: GUAIFENESIN 600 MG TABLET.SA PO SCH ×2 (09:58→21:02)
[2018-12-19] MEDS: ENOXAPARIN SODIUM INJ 40 MG/0.4 ML DISP.SYRIN SUBCUT SCH (09:59)
--- NOTE | 2018-12-19 20:20 | PDOC PROGRESS REPORT ---
Subjective Progress Note for:: 12/19/18 Subjective:: SHEREEN ADORNO is a 43 year old female patient with history of asthma, hypertension and GERD who was admitted 12/17/18 for an asthma exacerbation secondary to CAP. Patient was seen on afternoon rounds. She was found resting in bed comfortably on supplemental oxygen via NC; she is not home O2 dependant. Oxygen was turned off while I was in the room and she continued to maintain saturations in the mid 90s w/o increased work of breathing. She reports improved dyspnea but continues to have a productive cough. She is frustrated and anxious by her multiple hospital visits for asthma exacerbations and is concerned that she may not be on the correct preventative measures. She has no new questions or concerns. ROS as above and otherwise negative. No concerns per nursing. Reason For Visit: ASTHMA EXCERBATION, LINGULAR PNEUMONIA Physical Exam Vital Signs: Temp Pulse Resp BP Pulse Ox 98.4 F 79 16 121/70 98 12/19/18 15:17 12/19/18 16:59 12/19/18 16:59 12/19/18 15:17 12/19/18 16:59 Intake & Output 12/18/18 12/19/18 12/20/18 06:59 06:59 06:59 Intake Total 1350 2422 2180 Balance 1350 2422 2180 Weight 126.598 kg 126.3 kg General appearance: PRESENT: no acute distress, cooperative, morbidly obese, well-developed, well-nourished Head exam: PRESENT: atraumatic, normocephalic Eye exam: PRESENT: conjunctiva pink, EOMI, PERRLA. ABSENT: scleral icterus Mouth exam: PRESENT: moist, tongue midline Teeth exam: PRESENT: poor dentation Neck exam: ABSENT: carotid bruit, JVD, lymphadenopathy, thyromegaly Respiratory exam: PRESENT: clear to auscultation neris, prolonged expiratory phas, symmetrical, unlabored, wheezes - RLL. ABSENT: rales, rhonchi Cardiovascular exam: PRESENT: RRR. ABSENT: diastolic murmur, rubs, systolic murmur Pulses: PRESENT: normal dorsalis pedis pul Vascular exam: PRESENT: normal capillary refill GI/Abdominal exam: PRESENT: normal bowel sounds, soft. ABSENT: distended, guarding, mass, organolmegaly, rebound, tenderness Rectal exam: PRESENT: deferred Extremities exam: PRESENT: full ROM. ABSENT: calf tenderness, clubbing, pedal edema Neurological exam: PRESENT: alert, awake, oriented to person, oriented to place, oriented to time, oriented to situation, CN II-XII grossly intact. ABSENT: motor sensory deficit Psychiatric exam: PRESENT: appropriate affect, normal mood. ABSENT: homicidal ideation, suicidal ideation Skin exam: PRESENT: dry, intact, warm. ABSENT: cyanosis, rash Results Laboratory Results: 12/19/18 06:08 12/19/18 06:08 12/19/18 12/19/18 06:08 06:08 WBC 12.4 H RBC 4.61 Hgb 13.2 Hct 39.8 MCV 86 MCH 28.7 MCHC 33.3 RDW 13.5 Plt Count 327 Seg Neutrophils % Not Reportable Lymphocytes % Not Reportable Monocytes % Not Reportable Eosinophils % Not Reportable Basophils % Not Reportable Absolute Neutrophils Not Reportable Absolute Lymphocytes Not Reportable Absolute Monocytes Not Reportable Absolute Eosinophils Not Reportable Absolute Basophils Not Reportable Sodium 138.8 Potassium 4.1 Chloride 104 Carbon Dioxide 27 Anion Gap 8 BUN 11 Creatinine 0.76 Est GFR ( Amer) > 60 Est GFR (Non-Af Amer) > 60 Glucose 119 H Calcium 8.8 Impressions: Chest X-Ray 12/17/18 20:28 IMPRESSION: 1. Very subtle density in the lingula, possibly an early pneumonia. Please correlate with current symptoms. Assessment and Plan - Diagnosis (1) Acute respiratory failure with hypoxia Is this a current diagnosis for this admission?: Yes Plan: Improved; Secondary to asthma exacerbation and community acquired pneumonia. Patient is admitted to the medical floor. She is placed on supplemental oxygen, scheduled and as needed nebulizer treatments, empiric antibiotics, and steroid therapy. HAve begun weaning oxygen and Solu-Medrol. (2) Asthma exacerbation Qualifiers: Asthma severity: moderate Asthma persistence: persistent Qualified Code(s): J45.41 - Moderate persistent asthma with (acute) exacerbation Is this a current diagnosis for this admission?: Yes Plan: Supplemental oxygen as needed to maintain saturations >90%. Continue scheduled and as needed nebulizer treatments. Continue IV Solu-Medrol; have begun weaning. Continue Singulair and Mucinex. Holding home dose Advair while receiving Duonebs. Peak flow meter teaching in the morning. Consider PFT testing prior to discharge. Outpatient pulmonology follow up. (3) Lingular pneumonia Is this a current diagnosis for this admission?: Yes Plan: Improved; productive cough is decreased, no further episodes of hemoptysis, dyspnea is improved. Blood cultures are negative at 24 hours. Sputum culture is pending. Continue IV Levaquin for CAP coverage; day #2. Will transition to p.o. tomorrow as the patient remains afebrile with nml WBC (slight elevation today is related to steroid therapy). (4) Hypertension Is this a current diagnosis for this admission?: Yes Plan: We will continue lisinopril (5) GERD (gastroesophageal reflux disease) Is this a current diagnosis for this admission?: Yes Plan: PPI therapy will be provided especially given current steroid therapy and history of GERD (6) Morbid obesity Is this a current diagnosis for this admission?: Yes Plan: BMI 43.6 Dietary discretion and lifestyle modifications are encouraged. - Time Time Spent with patient: 15-24 minutes Medications reviewed and adjusted accordingly: Yes Anticipated discharge: Home Within: within 48 hours
[2018-12-19] MEDS: MONTELUKAST SODIUM 10 MG TABLET PO SCH (21:02)
[2018-12-19] MEDS: LEVOFLOXACIN 750 MG/D5W RTU 750 MG/150 ML RTUPB IV SCH (21:03)
[2018-12-20] MEDS ORDERED: METHYLPREDNISOLONE INJ 40 MG/1 ML SDV IV SCH ×2 (02:00→10:00)
[2018-12-20] MEDS: ALBUTEROL SULFATE 0.083% NEB 2.5 MG/3 ML AMPUL NEB PRN (02:29)
[2018-12-20] MEDS: PANTOPRAZOLE SODIUM 40 MG TABLET.DR PO SCH (06:27)
[2018-12-20 06:51] LABS: ABSOLUTE LYMPHOCYTES (AUTO) 0.8 10^3/uL (0.5-4.7); ABSOLUTE MONOCYTES (AUTO) 0.3 10^3/uL (0.1-1.4); ABSOLUTE NEUT (AUTO) 13.2 10^3/uL (1.7-8.2); BASOPHILS % (AUTO) 0.1 % (0-2); HEMATOCRIT 37.6 % (36.0-47.0); HEMOGLOBIN 12.6 g/dL (12.0-15.5); LYMPHOCYTES % (AUTO) 5.4 % (13-45); MEAN CORPUSCULAR HEMOGLOBIN 28.9 pg (27.0-33.4); MEAN CORPUSCULAR HGB CONC 33.6 g/dL (32.0-36.0); MEAN CORPUSCULAR VOLUME 86 fl (80-97); MONOCYTES % (AUTO) 2.1 % (3-13); PLATELET COUNT 334 10^3/uL (150-450); RED BLOOD COUNT 4.38 10^6/uL (3.72-5.28); RED CELL DISTRIBUTION WIDTH 13.6 % (11.5-14.0); SEGMENTED NEUTROPHILS % (AUTO) 92.4 % (42-78); TOTAL CELLS COUNTED % (AUTO) 100 %; WHITE BLOOD COUNT 14.3 10^3/uL (4.0-10.5)
[2018-12-20 07:17] LABS: ANION GAP 7 (5-19); BLOOD UREA NITROGEN 15 mg/dL (7-20); CALCIUM 8.8 mg/dL (8.4-10.2); CARBON DIOXIDE 27 mmol/L (22-30); CHLORIDE 105 mmol/L (98-107); GLUCOSE 116 mg/dL (75-110); POTASSIUM 4.2 mmol/L (3.6-5.0); SODIUM 139.2 mmol/L (137-145)
[2018-12-20] MEDS ORDERED: ALBUTEROL SULFATE 0.083% NEB 2.5 MG/3 ML AMPUL NEB PRN (08:24)
[2018-12-20] MEDS: ENOXAPARIN SODIUM INJ 40 MG/0.4 ML DISP.SYRIN SUBCUT SCH (10:01)
[2018-12-20] MEDS: LISINOPRIL 10 MG TABLET PO SCH (10:01)
[2018-12-20] MEDS: GUAIFENESIN 600 MG TABLET.SA PO SCH (10:01)
[2018-12-20] MEDS: CETIRIZINE 10 MG TABLET PO SCH (10:01)
[2018-12-20] MEDS: FLUTICASONE NASAL SPRAY 50 MCG/SPRY 120 SPRAY/16 GM NASL SCH (10:01)
[2018-12-20 16:01] VITALS: BP 134/67
[2018-12-20] MEDS ORDERED: LEVOFLOXACIN 750 MG TABLET PO SCH (22:00)
--- NOTE | 2018-12-22 22:26 | PDOC DISCHARGE SUMMARY ---
General - Admit/Disc Date/PCP Admission Date/Primary Care Provider: 12/17/18 23:29 Discharge Date: 12/20/18 - Discharge Diagnosis (1) Acute respiratory failure with hypoxia Is this a current diagnosis for this admission?: Yes Summary: Resolved. Secondary to asthma exacerbation and community acquired pneumonia. Patient was admitted to the medical floor. She is placed on supplemental oxygen, scheduled and as needed nebulizer treatments, empiric antibiotics, and steroid therapy. Detailed management as outlined below. At time of discharge, patient was in stable condition and maintaining oxygen saturations while ambulatory on room air. She is instructed to follow up with her primary care provider within 1 week ([facility]). She is provided a referral to Dr. Oscar for further evaluation and management of her asthma. She is advised to avoid all triggers (smoke, pollen, dust, pet dander). She is instructed to return to the emergency department as needed for concerning symptoms. (2) Asthma exacerbation Is this a current diagnosis for this admission?: Yes Summary: Patient was admitted to the medical floor and supported with: Supplemental oxygen as needed to maintain saturations >90%. Scheduled and as needed nebulizer treatments. IV Solu-Medrol; have weaned to p.o. prednisone. She is provided a prescription for taper to complete post-discharge. Singulair and Mucinex. Peak flow meter teaching. PFT testing was attempted; patient was not coordinated enough to follow directions. Pre patient request, she is provided a referral to outpatient pulmonology for follow up. She is instructed to resume her home dose Advair at discharge. (3) Lingular pneumonia Is this a current diagnosis for this admission?: Yes Summary: Improved; productive cough is decreased, no further episodes of hemoptysis, dyspnea is improved, now maintaining oxygen saturations while ambulatory on room air. Blood cultures are negative at 4 days. Sputum culture demonstrated normal respiratory desean.. Patient was empirically placed on IV Levaquin for CAP coverage (suspected staph or strep organism); she was transitioned to p.o. Levaquin and provided a prescription at discharge to complete her course of therapy. (4) Hypertension Is this a current diagnosis for this admission?: Yes Summary: Continue home dose lisinopril. (5) GERD (gastroesophageal reflux disease) Is this a current diagnosis for this admission?: Yes Summary: Recommend continuing PPI therapy as uncontrolled reflux can be a cause of asthma flare-ups. Consider elevating head of bed at home 1-2 inches. (6) Morbid obesity Is this a current diagnosis for this admission?: Yes Summary: BMI 43.6 Dietary discretion and lifestyle modifications are encouraged. - Additional Information Discharge Diet: Cardiac Discharge Activity: Activity As Tolerated, Balance Activity w/Rest Prescriptions: Cetirizine HCl [Zyrtec 10 mg Tablet] 10 mg PO DAILY #30 tablet Guaifenesin [Mucinex Sr 600 mg Tablet.sa] 600 mg PO Q12 #14 tablet.sa Montelukast Sodium [Singulair 10 mg Tablet] 10 mg PO QHS #30 tablet Prednisone [Deltasone] 20 mg PO ASDIR PRN #20 tablet PRN Reason: Transition To Wellness [Transition to Wellness Program] 1 each ASDIR PRN #1 each PRN Reason: Home Medications: Albuterol Sulfate [Proair HFA Inhalation Aerosol 8.5 gm MDI] 2 puff IH Q4HP PRN 12/18/18 Fluticasone/Salmeterol [Advair 250-50 Diskus 14 Dose/Diskus] 1 puff IH Q12 12/18/18 Lisinopril [Prinivil 10 mg Tablet] 10 mg PO DAILY 12/18/18 Omeprazole 20 mg PO BID 12/18/18 Acetaminophen [Tylenol 325 mg Tablet] 650 mg PO Q4HP PRN tablet 12/20/18 Cetirizine HCl [Zyrtec 10 mg Tablet] 10 mg PO DAILY #30 tablet 12/20/18 Fluticasone Propionate [Flonase Nasal [place] 50 Mcg/[place] 16 gm] 2 spray NASL Q12 spray.pump 12/20/18 Guaifenesin [Mucinex Sr 600 mg Tablet.sa] 600 mg PO Q12 #14 tablet.sa 12/20/18 Lisinopril [Prinivil 10 mg Tablet] 10 mg PO DAILY tablet 12/20/18 Montelukast Sodium [Singulair 10 mg Tablet] 10 mg PO QHS #30 tablet 12/20/18 Prednisone [Deltasone] 20 mg PO ASDIR PRN #20 tablet 12/20/18 Transition To Wellness [Transition to Wellness Program] 1 each ASDIR PRN #1 each 12/20/18 History of Present Illness History of Present Illness: Per H&P by Dr. Anthony: SHEREEN ADORNO is a 43 year old female patient with history of asthma, hypertension and GERD who presented to the emergency room with acute onset of cough productive of blood-tinged sputum as well as dyspnea and wheezing over the last couple of days. Her cough has been intermittent over the last couple of months. She admits to tactile fever witho ut chills. No chest pain or palpitations. No nausea vomiting or abdominal pain. No dysuria, oliguria or hematuria or flank pain. No other bleeding diathesis. Upon presentation to the emergency room her pulse was 104 and blood pressure 139/95 respiratory rate of 18 temperature 98.6 and pulse oximetry 88% on room air. Labs were unremarkable but urinalysis showed 162 RBCs and WBCs with small leukocyte esterase. The patient was given IV Solu-Medrol by EMS and here was given IV mag sulfate, nebulized duo nebs and albuterol and IV Levaquin. Patient will be admitted to an medically monitored bed for further evaluation and management Physical Exam Vital Signs: Temp Pulse Resp BP Pulse Ox 97.5 F 79 17 134/67 H 99 12/20/18 15:58 12/20/18 15:58 12/20/18 15:58 12/20/18 15:58 12/20/18 15:58 Intake & Output 12/21/18 12/22/18 12/23/18 06:59 06:59 06:59 Intake Total 1671 Balance 1671 General appearance: PRESENT: no acute distress, cooperative, morbidly obese, well-developed, well-nourished Head exam: PRESENT: atraumatic, normocephalic Eye exam: PRESENT: conjunctiva pink, EOMI, PERRLA. ABSENT: scleral icterus Ear exam: PRESENT: normal external ear exam Mouth exam: PRESENT: moist, tongue midline Neck exam: ABSENT: carotid bruit, JVD, lymphadenopathy, thyromegaly Respiratory exam: PRESENT: clear to auscultation neris, prolonged expiratory phas. ABSENT: rales, rhonchi, wheezes Cardiovascular exam: PRESENT: RRR. ABSENT: diastolic murmur, rubs, systolic murmur Pulses: PRESENT: normal dorsalis pedis pul Vascular exam: PRESENT: normal capillary refill GI/Abdominal exam: PRESENT: normal bowel sounds, soft. ABSENT: distended, guarding, mass, organolmegaly, rebound, tenderness Rectal exam: PRESENT: deferred Extremities exam: PRESENT: full ROM. ABSENT: calf tenderness, clubbing, pedal edema Musculoskeletal exam: PRESENT: ambulatory Neurological exam: PRESENT: alert, awake, oriented to person, oriented to place, oriented to time, oriented to situation, CN II-XII grossly intact. ABSENT: motor sensory deficit Psychiatric exam: PRESENT: appropriate affect, normal mood. ABSENT: homicidal ideation, suicidal ideation Skin exam: PRESENT: dry, intact, warm. ABSENT: cyanosis, rash Results Laboratory Results: 12/20/18 06:38 12/20/18 06:38 Impressions: Chest X-Ray 12/17/18 20:28 IMPRESSION: 1. Very subtle density in the lingula, possibly an early pneumonia. Please correlate with current symptoms. Qualifiers - * PATIENT BEING DISCHARGED WITH ANY OF THE FOLLOWING DIAGNOSIS: No Plan Discharge Plan: Follow up with primary care provider within [address] Oscar. Avoid all asthma triggers (smoke, dust, pollen, pet dander). Do NOT smoke. Return to the emergency room as needed for concerning symptoms. Time Spent: Greater than 30 Minutes
== END 2018-12-20 16:35 | disposition home or self-care (01) | DRG 193 ==
LOC: ER 19:39 → EH 23:29 → 2N 12-18 02:06
PROVIDERS: ADMIT Family Medicine; ATTEND Family Medicine
PROC: 3E0F73Z Introduction of Anti-inflammatory into Respiratory Tract, Via Natural or Artificial Opening (ICD-10-PCS; principal; 2018-12-18)
DX: J18.9 Pneumonia, unspecified organism (principal); J96.01 Acute respiratory failure with hypoxia; Z68.41 Body mass index [BMI] 40.0-44.9, adult; J45.41 Moderate persistent asthma with (acute) exacerbation; I10 Essential (primary) hypertension; K21.9 Gastro-esophageal reflux disease without esophagitis; E66.01 Morbid (severe) obesity due to excess calories; F32.9 Major depressive disorder, single episode, unspecified; F41.9 Anxiety disorder, unspecified; Z79.52 Long term (current) use of systemic steroids; Z79.899 Other long term (current) drug therapy; Z79.1 Long term (current) use of non-steroidal anti-inflammatories (NSAID); Z90.710 Acquired absence of both cervix and uterus; Z82.49 Family history of ischemic heart disease and other diseases of the circulatory system; Z82.5 Family history of asthma and other chronic lower respiratory diseases
CPT/HCPCS: 36415; 71046; 80048; 80053; 81001; 81025; 83690; 85025; 87040; 87070; 87086; 87088; 87186; 87205; 94640; 94667; 94668; 94799; 96361; 96365; 96375; 99285; J1650; J1956; J2405; J2920; J3475; J3490; J7030; J7120; J7620

== ENCOUNTER 2019-03-01 16:07 | Emergency (ER) | payer MEDICAID ==
[2019-03-01] MEDS ORDERED: LIDOCAINE 2% VISCOUS SOLN 20 ML UDCUP PO ONE (17:58)
[2019-03-01] MEDS ORDERED: IBUPROFEN 800 MG TABLET PO ONE (17:58)
--- NOTE | 2019-03-01 17:58 | ER Document Report ---
HPI - HPI Patient complains to provider of: Sore throat Time Seen by Provider: 03/01/19 17:53 Onset/Duration: Persistent Quality of pain: Achy Pain Level: 5 Context: Patient presents complaining of sore throat for the past 2 days. Patient states that her sore throat symptoms started after she had had vomiting 2 days ago. Patient denies any additional vomiting or nausea at this time. Patient without any fever or abdominal pain. Associated Symptoms: Sore throat. denies: Earache, Fever, Vomiting Exacerbated by: Denies Relieved by: Denies Similar symptoms previously: No Recently seen / treated by doctor: No - ROS ROS below otherwise negative: Yes Systems Reviewed and Negative: Yes All other systems reviewed and negative - CONSTITUTIONAL Constitutional: DENIES: Fever - EENT EENT: REPORTS: Sore Throat. DENIES: Ear Pain - RESPIRATORY Respiratory: DENIES: Coughing - GASTROINTESTINAL Gastrointestinal: DENIES: Abdominal Pain, Nausea, Patient vomiting - REPRODUCTIVE Reproductive: DENIES: : - DERM Skin Color: Normal Skin Problems: None Past Medical History - General Information source: Patient - Social History Smoking Status: Never Smoker Frequency of alcohol use: None Drug Abuse: None Occupation: None Family History: Hypertension. denies: Arthritis, CAD, CVA, DM, Hyperlipidemia, Malignancy, Thyroid Disfunction - Past Medical History Cardiac Medical History: Reports: Hx Hypertension Pulmonary Medical History: Reports: Hx Asthma, Hx Bronchitis Renal/ Medical History: Denies: Hx Peritoneal Dialysis GI Medical History: Reports: Hx Gastroesophageal Reflux Disease Psychiatric Medical History: Reports: Hx Anxiety, Hx Depression Past Surgical History: Reports: Hx Appendectomy, Hx Section - X2, Hx Hysterectomy, Hx Tubal Ligation - Immunizations Immunizations up to date: No Hx Diphtheria, Pertussis, Tetanus Vaccination: Yes Hx Pneumococcal Vaccination: 09/12/15 Vertical Provider Document - CONSTITUTIONAL Agree With Documented VS: Yes Exam Limitations: No Limitations General Appearance: WD/WN, No Apparent Distress - INFECTION CONTROL TRAVEL OUTSIDE OF THE [place] IN LAST 30 DAYS: No - HEENT HEENT: Atraumatic, Normocephalic, Pharyngeal Exudate, Pharyngeal Tenderness, Pharyngeal Erythema - NECK Neck: Normal Inspection, Supple. negative: Lymphadenopathy-Left, Lymphadenopathy-Right - RESPIRATORY Respiratory: Breath Sounds Normal, No Respiratory Distress - CARDIOVASCULAR Cardiovascular: Regular Rate, Regular Rhythm - BACK Back: Normal Inspection - MUSCULOSKELETAL/EXTREMETIES Musculoskeletal/Extremeties: MAEW - NEURO Level of Consciousness: Awake, Alert, Appropriate Motor/Sensory: No Motor Deficit - DERM Integumentary: Warm, Dry, No Rash Course - Re-evaluation Re-evalutation: 03/01/19 19:02 Resp even, unlabored, patient nontoxic in appearance. No concern for strep or [employer] at this time. Patient able to manage oral secretions. Will treat symptomatically and encourage outpatient follow-up with her primary doctor for recheck. Throat culture is pending at this time. - Vital Signs Vital signs: Temp Pulse Resp BP Pulse Ox 98.7 F 99 18 135/94 H 94 03/01/19 16:10 03/01/19 16:10 03/01/19 16:10 03/01/19 16:10 03/01/19 16:10 - Laboratory Laboratory results interpreted by me: 03/01/19 19:02 Labs- Entire Visit 03/01/19 18:00 Group A Strep Rapid NEGATIVE Discharge - Discharge Clinical Impression: Sore throat Condition: Stable Disposition: HOME, SELF-CARE Instructions: Acetaminophen, Sore Throat ([facility]) Additional Instructions: Return immediately for any new or worsening symptoms Followup with your primary care provider, call tomorrow to make a followup appointment Throat culture is pending, will call if you need any different treatment Referrals: DEBBY MORALES MD [Primary Care Provider] - Follow up as needed
[2019-03-01 19:21] VITALS: BP 130/86
== END 2019-03-01 19:22 | disposition home or self-care (01) ==
LOC: ER 16:07
DX: J02.9 Acute pharyngitis, unspecified (principal); I10 Essential (primary) hypertension; J45.909 Unspecified asthma, uncomplicated
CPT/HCPCS: 99283; 87070; 87880; J3490 ×2

== ENCOUNTER 2019-03-02 13:15 | Emergency (ER) | payer MEDICAID ==
[2019-03-02] MEDS ORDERED: DEXAMETHASONE SOD PHOS INJ 10 MG/1 ML VIAL IV ONE (13:58)
[2019-03-02] MEDS ORDERED: KETOROLAC TROMETHAMINE INJ/PF 30 MG/1 ML SDV IV ONE (13:58)
--- NOTE | 2019-03-02 14:08 | ER Document Report ---
ED Medical Screen (RME) - General Chief Complaint: Sore Throat Stated Complaint: SORE THROAT Time Seen by Provider: 03/02/19 13:47 Primary Care Provider: DEBBY MORALES MD [Primary Care Provider] - Follow up as needed Notes: Patient is a 43-year-old female presents to the emergency department with a four-day history of sore throat. Patient states that she was seen yesterday with a negative strep test. Patient states that overnight the soreness in her throat has worsened and now she has developed swelling to the left side of her face and neck. Patient states that she can swallow although this induces pain. Patient states now she feels like her sore throat has affected her voice. Patient denies fever. Patient has nausea vomiting or diarrhea. Patient denies abdominal pain. TRAVEL OUTSIDE OF THE [place] IN LAST 30 DAYS: No - Related Data Allergies/Adverse Reactions: No Known Allergies Allergy (Verified 03/01/19 16:08) Past Medical History - Past Medical History Cardiac Medical History: Reports: Hx Hypertension Denies: Hx Coronary Artery Disease, Hx DVT, Hx Pulmonary Embolism Pulmonary Medical History: Reports: Hx Asthma, Hx Bronchitis Renal/ Medical History: Denies: Hx Peritoneal Dialysis GI Medical History: Reports: Hx Gastroesophageal Reflux Disease Psychiatric Medical History: Reports: Hx Anxiety, Hx Depression Past Surgical History: Reports: Hx Appendectomy, Hx Section - X2, Hx Hysterectomy, Hx Tubal Ligation - Immunizations Immunizations up to date: No Hx Diphtheria, Pertussis, Tetanus Vaccination: Yes Physical Exam - Vital signs Vitals: Temp Pulse Resp BP Pulse Ox 98.1 F 89 18 142/94 H 95 03/02/19 13:21 03/02/19 13:21 03/02/19 13:21 03/02/19 13:21 03/02/19 13:21 - HEENT Head: Normocephalic Eyes: Normal Conjunctiva: Normal Cornea: Normal Extraocular movements intact: Yes Eyelashes: Normal Pupils: PERRL Ears: Normal External canal: Normal Tympanic membrane: Normal Sinus: Normal Nasal: Normal Mouth/Lips: Normal Mucous membranes: Normal Teeth diagram: 1 - missing tooth, no obvious abscess or infection Pharynx: Erythema - Tonsillar erythema, no exudate. Neck: Lymphadenopathy - Left cervical lymphadenopathy and edema Course - Vital Signs Vital signs: Temp Pulse Resp BP Pulse Ox 98.1 F 89 18 142/94 H 95 03/02/19 13:21 03/02/19 13:21 03/02/19 13:21 03/02/19 13:21 03/02/19 13:21 Doctor's Discharge - Discharge Referrals: DEBBY MORALES MD [Primary Care Provider] - Follow up as needed
[2019-03-02 15:00] LABS: ABSOLUTE BASOPHILS # (AUTO) 0.1 10^3/uL (0.0-0.2); ABSOLUTE EOSINOPHILS # (AUTO) 0.5 10^3/uL (0.0-0.6); ABSOLUTE LYMPHOCYTES (AUTO) 1.5 10^3/uL (0.5-4.7); ABSOLUTE MONOCYTES (AUTO) 0.8 10^3/uL (0.1-1.4); ABSOLUTE NEUT (AUTO) 8.8 10^3/uL (1.7-8.2); BASOPHILS % (AUTO) 0.6 % (0-2); EOSINOPHILS % (AUTO) 4.3 % (0-6); HEMOGLOBIN 14.4 g/dL (12.0-15.5); LYMPHOCYTES % (AUTO) 13.2 % (13-45); MEAN CORPUSCULAR HEMOGLOBIN 28.2 pg (27.0-33.4); MEAN CORPUSCULAR HGB CONC 33.5 g/dL (32.0-36.0); MEAN CORPUSCULAR VOLUME 84 fl (80-97); PLATELET COUNT 361 10^3/uL (150-450); RED BLOOD COUNT 5.11 10^6/uL (3.72-5.28); RED CELL DISTRIBUTION WIDTH 13.5 % (11.5-14.0); SEGMENTED NEUTROPHILS % (AUTO) 74.9 % (42-78); TOTAL CELLS COUNTED % (AUTO) 100 %; WHITE BLOOD COUNT 11.7 10^3/uL (4.0-10.5)
[2019-03-02 15:22] LABS: ANION GAP 9 (5-19); BLOOD UREA NITROGEN 11 mg/dL (7-20); CARBON DIOXIDE 28 mmol/L (22-30); CHLORIDE 104 mmol/L (98-107); GLUCOSE 105 mg/dL (75-110); POTASSIUM 3.6 mmol/L (3.6-5.0); SODIUM 140.7 mmol/L (137-145)
[2019-03-02] MEDS ORDERED: CLINDAMYCIN 900 MG/D5W RTU 900 MG/50 ML RTUPB IV ONE (17:28)
--- NOTE | 2019-03-02 17:34 | ER Document Report ---
ED General - General Chief Complaint: Sore Throat Stated Complaint: SORE THROAT Time Seen by Provider: 03/02/19 13:47 Mode of Arrival: Ambulatory Information source: Patient TRAVEL OUTSIDE OF THE [place] IN LAST 30 DAYS: No - HPI Patient complains to provider of: Sore throat facial swelling Onset: Yesterday - Last night Onset/Duration: Sudden Quality of pain: Sharp Severity: Severe Pain Level: 5 Associated symptoms: Sore throat. denies: Chills, Diarrhea, Fever, Nausea, Vomiting Exacerbated by: Other - Eating and drinking Relieved by: Denies Similar symptoms previously: No Recently seen / treated by doctor: No Notes: 43-year-old female coming in today for reassessment. Was here last night for very sore throat. Strep test was negative. Told to go home. Today w orse pain and feeling swelling in left side of her face. No fevers or chills. No drooling. No difficulty articulating. Hurts to swallow saliva but able to. - Related Data Allergies/Adverse Reactions: No Known Allergies Allergy (Verified 03/01/19 16:08) Past Medical History - General Information source: Patient - Social History Smoking Status: Never Smoker Family History: Hypertension. denies: Arthritis, CAD, CVA, DM, Hyperlipidemia, Malignancy, Thyroid Disfunction Patient has suicidal ideation: No Patient has homicidal ideation: No - Past Medical History Cardiac Medical History: Reports: Hx Hypertension Denies: Hx Coronary Artery Disease, Hx DVT, Hx Pulmonary Embolism Pulmonary Medical History: Reports: Hx Asthma, Hx Bronchitis Renal/ Medical History: Denies: Hx Peritoneal Dialysis GI Medical History: Reports: Hx Gastroesophageal Reflux Disease Psychiatric Medical History: Reports: Hx Anxiety, Hx Depression Past Surgical History: Reports: Hx Appendectomy, Hx Section - X2, Hx Hy sterectomy, Hx Tubal Ligation - Immunizations Immunizations up to date: No Hx Diphtheria, Pertussis, Tetanus Vaccination: Yes Hx Pneumococcal Vaccination: 09/12/15 Review of Systems - Review of Systems Notes: Constitutional: No fevers. No chills. EENT: No eye redness. No eye pain. No ear pain. Positive for very sore throat Cardiovascular: No chest pain. No palpitations. Respiratory: No cough. No shortness of breath. No respiratory distress. Gastrointestinal: No abdominal pain. No nausea, vomiting, or diarrhea. Genitourinary: Atraumatic. No lesions. No pain. No discharge. Musculoskeletal: Atraumatic. No swelling. No deformities. Skin: No rash or lesions. Lymphatic: No swollen lymph nodes. Neurologic: No headache. No syncope. Psychiatric: No suicidal or homicidal ideation. Physical Exam - Vital signs Vitals: Temp Pulse Resp BP Pulse Ox 98.1 F 89 18 142/94 H 95 03/02/19 13:21 03/02/19 13:21 03/02/19 13:21 03/02/19 13:03/02/19 13:21 - Notes Notes: General: Well-developed, well-nourished. In no acute distress. Non-toxic appearing. Cardiac: Well-perfused. Regular rate and rhythm. No murmurs, rubs, or gallops. Pulmonary: No respiratory distress. No cyanosis. Bilateral lung fiels are clear to auscultation. Abdominal: Non-distended. Non-rigid. Bowels sounds are present in all four quadrants. No guarding or rebound. HEENT: Posterior pharynx is definitely 2+ injected. Mild bilateral swelling. No exudates. Uvula midline. No obvious muffled voice. No appreciable facial swelling. No trismus. No drooling. No submandibular or sublingual swelling. No dysphonia dyspnea or dysphagia Neck: Supple. No adenopathy. No meningismus. Dermatologic: Warm with good turgor. No rash. Atraumatic. Chest: Atraumatic. No chest wall tenderness to palpation. Musculoskeletal: Moves all extremities well. No range of motion deficits. no muscular or joint tenderness. No paraspinal muscle tenderness. no midline spinal tenderness or step-off. Genitourinary: Examination deferred Neurologic: No gross neurologic deficits. Psychiatric: Normal mood. Course - Re-evaluation Re-evalutation: 03/02/19 17:33 Normal white count. Mora negative. She has already received dexamethasone. We will go ahead and give clindamycin 900 IV here. At this time I do not think that she needs to have a CT scan done. We will check to see clinically how she does. She is in agreement with this plan. She gets severe anxiety about having CTs done. - Vital Signs Vital signs: Temp Pulse Resp BP Pulse Ox 98.1 F 89 18 142/94 H 95 03/02/19 13:21 03/02/19 13:21 03/02/19 13:21 03/02/19 13:21 03/02/19 13:21 - Laboratory Result Diagrams: 03/02/19 14:24 03/02/19 14:24 Laboratory results interpreted by me: 03/02/19 14:24 WBC 11.7 H Absolute Neutrophils 8.8 H Discharge - Discharge Clinical Impression: Pharyngitis Qualifiers: Pharyngitis/tonsillitis etiology: unspecified etiology Qualified Code(s): J02.9 - Acute pharyngitis, unspecified Condition: Good Disposition: HOME, SELF-CARE Instructions: Oral Narcotic Medication ([facility]), Sore Throat ([facility]) Additional Instructions: Please start the oral antibiotics tomorrow. If you feel like the symptoms are improving we can plan to see back on Tuesday. However if the symptoms are worsening come back sooner than that. Be sure to take the prednisone prescription also as directed. Tylenol and ibuprofen for any types of fevers or chills. Prescriptions: Clindamycin HCl 300 mg PO TID #30 capsule Prednisone 50 mg PO DAILY #5 tablet
[2019-03-02] MEDS ORDERED: HYDROCODONE/ACETAMINOPHEN 5-325 MG (6 TAB/ER DISP) PO PRN (17:42)
[2019-03-02 17:49] VITALS: BP 138/82
== END 2019-03-02 18:37 | disposition home or self-care (01) ==
LOC: ER 13:15
DX: J02.9 Acute pharyngitis, unspecified (principal); I10 Essential (primary) hypertension; J45.909 Unspecified asthma, uncomplicated
CPT/HCPCS: 99283; 96375; 96365; 36415; 85025; 86308; 80048; J3490; J1885; J1100

== ENCOUNTER 2019-04-06 13:44 | Emergency (ER) | payer MEDICAID ==
[2019-04-06 13:54] VITALS: BP 127/99
--- NOTE | 2019-04-06 15:10 | ER Document Report ---
ED GI/ - General Chief Complaint: Urinary Frequency Stated Complaint: URINARY ISSUES Time Seen by Provider: 04/06/19 15:00 Primary Care Provider: DEBBY MORALES MD [NO LOCAL MD] - Follow up as needed Mode of Arrival: Ambulatory Information source: Patient Notes: 43-year-old female presented to ED for tingling frequency and urgency of urine for the last 2 days. Patient states she has been tingling when she urinates and feels like it is a cold chill to her body but she does not have any pain or burning. She has no pain at this time. Patient is alert oriented respirations regular and unlabored speaking in full sentences. TRAVEL OUTSIDE OF THE [place] IN LAST 30 DAYS: No - HPI Patient complains to provider of: Other - Frequency urgency with urine and tingling when she urinates Onset: Other - 2 days Timing/Duration: Gradual Quality of pain: Other - Tingling when she urinates Severity in ED: None Pain Level: Denies Vaginal bleeding (Compared to normal period): None Associated symptoms: Urinary frequency, Urinary urgency, Other Exacerbated by: Other - Angling when urinates urination Relieved by: Denies Similar symptoms previously: Yes Recently seen / treated by doctor: No - Related Data Allergies/Adverse Reactions: No Known Allergies Allergy (Verified 03/01/19 16:08) Past Medical History - General Information source: Patient - Social History Smoking Status: Former Smoker Frequency of alcohol use: None Drug Abuse: None Lives with: Family Family History: Hypertension Patient has suicidal ideation: No Patient has homicidal ideation: No - Past Medical History Cardiac Medical History: Reports: Hx Hypertension Pulmonary Medical History: Reports: Hx Asthma, Hx Bronchitis EENT Medical History: Reports: None Neurological Medical History: Reports: None Endocrine Medical History: Reports: None Renal/ Medical History: Reports: None Malignancy Medical History: Reports: None GI Medical History: Reports: Hx Gastroesophageal Reflux Disease Musculoskeletal Medical History: Reports None Skin Medical History: Reports None Psychiatric Medical History: Reports: Hx Anxiety, Hx Depression, Other - Learning disability Traumatic Medical History: Reports: None Infectious Medical History: Reports: None Past Surgical History: Reports: Hx Appendectomy, Hx Section - X2, Hx Hysterectomy, Hx Tubal Ligation - Immunizations Immunizations up to date: No Hx Diphtheria, Pertussis, Tetanus Vaccination: Yes Hx Pneumococcal Vaccination: 09/12/15 Review of Systems - Review of Systems Constitutional: No symptoms reported EENT: No symptoms reported Cardiovascular: No symptoms reported Respiratory: No symptoms reported Gastrointestinal: No symptoms reported Genitourinary: Frequency, Urgency Female Genitourinary: No symptoms reported Musculoskeletal: No symptoms reported Skin: No symptoms reported Hematologic/Lymphatic: No symptoms reported Neurological/Psychological: No symptoms reported -: Yes All other systems reviewed and negative Physical Exam - Vital signs Vitals: Temp Pulse Resp BP Pulse Ox 98.3 F 74 20 127/99 H 96 04/06/19 13:52 04/06/19 13:52 04/06/19 13:52 04/06/19 13:52 04/06/19 13:52 Interpretation: Normal - General General appearance: Appears well, Alert - HEENT Head: Normocephalic, Atraumatic Eyes: Normal Pupils: PERRL - Respiratory Respiratory status: No respiratory distress Chest status: Nontender Breath sounds: Normal Chest palpation: Normal - Cardiovascular Rhythm: Regular Heart sounds: Normal auscultation Murmur: No - Abdominal Inspection: Normal Distension: No distension Bowel sounds: Normal Tenderness: Nontender Organomegaly: No organomegaly - Back Back: Normal, Nontender - Extremities General upper extremity: Normal inspection, Nontender, Normal color, Normal ROM, Normal temperature General lower extremity: Normal inspection, Nontender, Normal color, Normal ROM, Normal temperature, Normal weight bearing. No: Nichelle's sign - Neurological Neuro grossly intact: Yes Cognition: Normal Orientation: AAOx4 Valery Coma Scale Eye Opening: Spontaneous [place] Coma Scale Verbal: Oriented [place] Coma Scale Motor: Obeys Commands Valery Coma Scale Total: 15 Speech: Normal Motor strength normal: LUE, RUE, LLE, RLE Sensory: Normal - Psychological Associated symptoms: Normal affect, Normal mood - Skin Skin Temperature: Warm Skin Moisture: Dry Skin Color: Normal Course - Vital Signs Vital signs: Temp Pulse Resp BP Pulse Ox 98.3 F 74 20 127/99 H 96 04/06/19 13:52 04/06/19 13:52 04/06/19 13:52 04/06/19 13:52 04/06/19 13:52 - Laboratory Laboratory results interpreted by me: 04/06/19 14:51 Urine Blood SMALL H Ur Leukocyte Esterase MODERATE H Discharge - Discharge Clinical Impression: UTI (urinary tract infection) Qualifiers: Urinary tract infection type: site unspecified Hematuria presence: with hematuria Qualified Code(s): N39.0 - Urinary tract infection, site not specified Condition: Stable Disposition: HOME, SELF-CARE Additional Instructions: URINARY TRACT INFECTION: Your evaluation indicates that you have a urinary tract infection. This is due to germs growing in the bladder. This is a common problem. This infection usually responds quickly to antibiotics. Your antibiotic should be taken exactly as prescribed. Drink plenty of fluids -- three to four quarts a day. Occasionally, a bladder anesthetic will be prescribed to help stop the feeling of urgency until the antibiotic has a chance to clear the infection. This may cause your urine to be dark orange. Certain urine infections require a culture. If the doctor obtained a culture, the results will be back in two days. You should call to see if a change in treatment is needed. A repeat urinalysis after you finish treatment is often recommended. The physician will let you know if further testing is required. Call the doctor if you develop fever, chills, flank pain, inability to urinate, or blood in the urine. CEPHALEXIN: The antibiotic you've been prescribed is a member of the cephalosporin class. This type of antibiotic covers a wide variety of infections, including those of the skin, lungs, and urinary tract. It's useful for staph infections. This antibiotic is slightly similar to the penicillin family. In rare cases, a person who is allergic to penicillin will also be allergic to this med ication. If you have had a severe allergic reaction to penicillin, and have not taken this antibiotic since that time, notify your doctor. Antibiotics which cover many germs ("broad spectrum" antibiotics) are more likely to cause diarrhea or "yeast" infections. Women prone to vaginal yeast problems may suffer an attack after taking this antibiotic. In infants, oral thrush (white spots "stuck" on the cheek) or yeast diaper rash may result. See your doctor if these problems occur. Call at once if you develop itching, hives, shortness of breath, or lightheadedness. FOLLOW-UP CARE: If you have been referred to a physician for follow-up care, call the physicians office for an appointment as you were instructed or within the next two days. If you experience worsening or a significant change in your symptoms, notify the physician immediately or return to the Emergency Department at any time for re-evaluation. Prescriptions: Cephalexin Monohydrate [Keflex 500 mg Capsule] 500 mg PO Q6H 5 Days capsule Forms: Elevated Blood Pressure Referrals: DEBBY MORALES MD [NO LOCAL MD] - Follow up as needed
[2019-04-06 15:22] LABS: APPEARANCE,URINE SLIGHTLY-CLOUDY; BILIRUBIN,URINE NEGATIVE (NEGATIVE); COLOR,URINE YELLOW; GLUCOSE, URINE NEGATIVE (NEGATIVE); KETONES,URINE NEGATIVE (NEGATIVE); LEUKOCYTE ESTERASE,URINE MODERATE (NEGATIVE); NITRITE,URINE NEGATIVE (NEGATIVE); PROTEIN,URINE NEGATIVE (NEGATIVE); URINE SPECIFIC GRAVITY 1.008; UROBILINOGEN,URINE NEGATIVE mg/dL (<2.0)
== END 2019-04-06 15:34 | disposition home or self-care (01) ==
LOC: ER 13:44
DX: N39.0 Urinary tract infection, site not specified (principal); R35.0 Frequency of micturition; R39.15 Urgency of urination; R39.198 Other difficulties with micturition; I10 Essential (primary) hypertension; J45.909 Unspecified asthma, uncomplicated
CPT/HCPCS: 81001; 81025; 87086; 87088; 87186; 99283

== ENCOUNTER 2019-09-04 21:15 | Emergency (ER) | payer MEDICAID ==
--- NOTE | 2019-09-04 22:38 | ER Document Report ---
ED Medical Screen (RME) - General Chief Complaint: Leg Pain Stated Complaint: LEFT LEG PAIN Time Seen by Provider: 09/04/19 22:24 Notes: 44-year-old female with hypertension presents the emergency department with left lower extremity pain for 5 days. Patient states that it starts just above the knee and goes down her leg and it is constant in nature. No unilateral leg swelling, does not take any hormones, patient is not a smoker, no acute shortness of breath, no active cancer. Exam: Lungs are clear to auscultation all mcqueen, regular cardiac rate and rhythm, patient does have some tenderness to palpation from just above the knee down into the popliteal fossa I have greeted and performed a rapid initial assessment of this patient. A comprehensive ED assessment and evaluation of the patient, analysis of test results and completion of medical decision making process will be conducted by an additional ED providers. TRAVEL OUTSIDE OF THE [place] IN LAST 30 DAYS: No - Related Data Allergies/Adverse Reactions: No Known Allergies Allergy (Verified 03/01/19 16:08) Past Medical History - Past Medical History Cardiac Medical History: Reports: Hx Hypertension Pulmonary Medical History: Reports: Hx Asthma, Hx Bronchitis Renal/ Medical History: Denies: Hx Peritoneal Dialysis GI Medical History: Reports: Hx Gastroesophageal Reflux Disease Psychiatric Medical History: Reports: Hx Anxiety, Hx Depression Past Surgical History: Reports: Hx Appendectomy, Hx Section - X2, Hx Hysterectomy, Hx Tubal Ligation - Immunizations Immunizations up to date: No Hx Diphtheria, Pertussis, Tetanus Vaccination: Yes Physical Exam - Vital signs Vitals: Temp Pulse Resp BP Pulse Ox 98.6 F 76 20 161/94 H 98 09/04/19 21:27 09/04/19 21:27 09/04/19 21:27 09/04/19 21:27 09/04/19 21:27 Course - Vital Signs Vital signs: Temp Pulse Resp BP Pulse Ox 98.6 F 76 20 161/94 H 98 09/04/19 21:27 09/04/19 21:27 09/04/19 21:27 09/04/19 21:27 09/04/19 21:27
[2019-09-04 23:14] LABS: ABSOLUTE BASOPHILS # (AUTO) 0.1 10^3/uL (0.0-0.2); ABSOLUTE EOSINOPHILS # (AUTO) 0.1 10^3/uL (0.0-0.6); ABSOLUTE LYMPHOCYTES (AUTO) 3.9 10^3/uL (0.5-4.7); ABSOLUTE MONOCYTES (AUTO) 0.8 10^3/uL (0.1-1.4); BASOPHILS % (AUTO) 0.6 % (0-2); EOSINOPHILS % (AUTO) 0.6 % (0-6); HEMATOCRIT 41.8 % (36.0-47.0); HEMOGLOBIN 13.9 g/dL (12.0-15.5); LYMPHOCYTES % (AUTO) 30.2 % (13-45); MEAN CORPUSCULAR HEMOGLOBIN 27.7 pg (27.0-33.4); MEAN CORPUSCULAR HGB CONC 33.2 g/dL (32.0-36.0); MEAN CORPUSCULAR VOLUME 84 fl (80-97); MONOCYTES % (AUTO) 6.3 % (3-13); PLATELET COUNT 391 10^3/uL (150-450); RED CELL DISTRIBUTION WIDTH 13.8 % (11.5-14.0); SEGMENTED NEUTROPHILS % (AUTO) 62.3 % (42-78); TOTAL CELLS COUNTED % (AUTO) 100 %; WHITE BLOOD COUNT 12.9 10^3/uL (4.0-10.5)
[2019-09-04 23:19] LABS: APPEARANCE,URINE SLIGHTLY-CLOUDY; BILIRUBIN,URINE NEGATIVE (NEGATIVE); COLOR,URINE YELLOW; GLUCOSE, URINE NEGATIVE (NEGATIVE); KETONES,URINE NEGATIVE (NEGATIVE); LEUKOCYTE ESTERASE,URINE SMALL (NEGATIVE); NITRITE,URINE NEGATIVE (NEGATIVE); PROTEIN,URINE 30 mg/dL (NEGATIVE); UROBILINOGEN,URINE NEGATIVE mg/dL (<2.0)
[2019-09-04 23:31] LABS: ALBUMIN 4.1 g/dL (3.5-5.0); ALKALINE PHOSPHATASE 54 U/L (38-126); ANION GAP 9 (5-19); ASPARTATE AMINO TRANSFERASE 16 U/L (14-36); BILIRUBIN,DIRECT 0.1 mg/dL (0.0-0.4); BILIRUBIN,TOTAL 0.3 mg/dL (0.2-1.3); BLOOD UREA NITROGEN 13 mg/dL (7-20); CALCIUM 9.3 mg/dL (8.4-10.2); CARBON DIOXIDE 31 mmol/L (22-30); CHLORIDE 99 mmol/L (98-107); GLUCOSE 82 mg/dL (75-110); POTASSIUM 3.6 mmol/L (3.6-5.0); TOTAL PROTEIN 7.5 g/dL (6.3-8.2)
--- NOTE | 2019-09-05 03:31 | ER Document Report ---
ED General - General Chief Complaint: Leg Pain Stated Complaint: LEFT LEG PAIN Time Seen by Provider: 09/04/19 22:24 TRAVEL OUTSIDE OF THE [place] IN LAST 30 DAYS: No - HPI Notes: This is a 44-year-old female who presents with a complaint of left leg pain for the past 5 days. Patient describes pain from the knee down to her foot, posteriorly. She denies any trauma. No injuries. She denies any chest pain or dyspnea. Has no cardiopulmonary symptoms. Describes her symptoms as moderate. Pain is worse with movement. - Related Data Allergies/Adverse Reactions: No Known Allergies Allergy (Verified 03/01/19 16:08) Past Medical History - Social History Smoking Status: Former Smoker Family History: Hypertension Patient has suicidal ideation: No Patient has homicidal ideation: No - Past Medical History Cardiac Medical History: Reports: Hx Hypertension Pulmonary Medical History: Reports: Hx Asthma, Hx Bronchitis Renal/ Medical History: Denies: Hx Peritoneal Dialysis GI Medical History: Reports: Hx Gastroesophageal Reflux Disease Psychiatric Medical History: Reports: Hx Anxiety, Hx Depression Past Surgical History: Reports: Hx Appendectomy, Hx Section - X2, Hx Hysterectomy, Hx Tubal Ligation - Immunizations Immunizations up to date: No Hx Diphtheria, Pertussis, Tetanus Vaccination: Yes Hx Pneumococcal Vaccination: 09/12/15 Review of Systems - Review of Systems Cardiovascular: denies: Chest pain, Palpitations Respiratory: denies: Cough, Short of breath, Wheezing Musculoskeletal: Other - Left leg pain -: Yes All other systems reviewed and negative Physical Exam - Vital signs Vitals: Temp Pulse Resp BP Pulse Ox 98.6 F 76 20 161/94 H 98 09/04/19 21:27 09/04/19 21:27 09/04/19 21:27 09/04/19 21:27 09/04/19 21:27 - General General appearance: Appears well, Alert - Respiratory Respiratory status: No respiratory distress Chest status: Nontender Breath sounds: Normal Chest palpation: Normal - Cardiovascular Rhythm: Regular Heart sounds: Normal auscultation Murmur: No - Abdominal Inspection: Obese Distension: No distension Tenderness: No: Tender - Extremities General upper extremity: Other - There is slight left calf tenderness. No bony tenderness of left lower extremity. Normal distal neurovascular exam of the left lower extremity. No deformity. Full range of motion. No swelling. Negative Homans sign. Course - Re-evaluation Re-evalutation: 12/25/19 03:30 Differential diagnosis includes neck strain versus DVT. No cardiopulmonary symptoms to suggest PE. Doppler ultrasound is not available tonight and in a.m. target would not be advisable during the day on . I will cover this patient with Lovenox 1 mg/kg . Given this patient's weight, I will not give her 1.5 mg/kg as that will be too much Lovenox. I will have her come back for another dose later on today. We will have her come back for Doppler study tomorrow to rule out DVT. 09/05/19 03:37 09/05/19 05:02 Patient is doing well. She is stable for discharge. - Vital Signs Vital signs: Temp Pulse Resp BP Pulse Ox 98.0 F 65 20 171/93 H 98 09/05/19 02:41 09/05/19 02:41 09/04/19 21:27 09/05/19 02:41 09/05/19 02:41 - Laboratory Result Diagrams: 09/04/19 23:04 09/04/19 23:04 Laboratory results interpreted by me: 09/04/19 09/04/19 09/04/19 23:04 23:04 23:04 WBC 12.9 H Carbon Dioxide 31 H Urine Protein 30 H Ur Leukocyte Esterase SMALL H Urine Ascorbic Acid 20 H Discharge - Discharge Clinical Impression: Leg pain, left Condition: Good Disposition: HOME, SELF-CARE Instructions: Leg Pain Nonspecific ([facility]) Additional Instructions: You need a Doppler ultrasound to make sure he did not have a blood clot. Unfortunately, we cannot do 1 tonight like I have explained. Return this afternoon for another Lovenox shot. Call the number on the form tomorrow morning so you can have your ultrasound done. Prescriptions: Tramadol HCl [Ultram 50 mg Tablet] 50 mg PO Q4HP PRN #12 tab PRN Reason: Forms: Follow-Up Outpatient Testing
[2019-09-05] MEDS ORDERED: ENOXAPARIN SODIUM INJ 150 MG/1 ML DISP.SYRIN SUBCUT STA (03:36)
[2019-09-05] MEDS ORDERED: OXYCODONE-ACETAMINOPHEN 5-325 MG TABLET PO ONE (03:37)
[2019-09-05 05:22] VITALS: BP 142/94
== END 2019-09-05 05:22 | disposition home or self-care (01) ==
LOC: ER 21:15
DX: M79.605 Pain in left leg (principal); I10 Essential (primary) hypertension; Z90.710 Acquired absence of both cervix and uterus; E66.9 Obesity, unspecified
CPT/HCPCS: 99283; 96374; 36415; 85025; 80053; 81001; J1650

== ENCOUNTER 2019-09-05 14:00 | Emergency (ER) | payer MEDICAID ==
--- NOTE | 2019-09-05 14:16 | ER Document Report ---
ED Medical Screen (RME) - General Chief Complaint: Abnormal Lab Results Stated Complaint: ABNORMAL LABS Time Seen by Provider: 09/05/19 14:10 Notes: Patient is a 44-year-old female who presents to the emergency department with a chief complaint of left lower extremity pain. She was seen here in the emergency department last night and was instructed to follow-up outpatient for a venous Doppler study and was instructed to receive another dose of Lovenox. Patient ended up coming back here to the emergency department. Denies any shortness of breath or difficulty breathing. States that there is no extra swelling. Exam: Soft, mildly tender left lower extremity. I have greeted and performed a rapid initial assessment of this patient. A comprehensive ED assessment and evaluation of the patient, analysis of test results and completion of medical decision making process will be conducted by an additional ED providers. TRAVEL OUTSIDE OF THE [place] IN LAST 30 DAYS: No - Related Data Allergies/Adverse Reactions: No Known Drug Allergies Allergy (Verified 09/05/19 14:08) vingar Allergy (Uncoded 09/05/19 14:08) Hives Past Medical History - Past Medical History Cardiac Medical History: Reports: Hx Hypertension Pulmonary Medical History: Reports: Hx Asthma, Hx Bronchitis Renal/ Medical History: Denies: Hx Peritoneal Dialysis GI Medical History: Reports: Hx Gastroesophageal Reflux Disease Psychiatric Medical History: Reports: Hx Anxiety, Hx Depression Past Surgical History: Reports: Hx Appendectomy, Hx Section - X2, Hx Hysterectomy, Hx Tubal Ligation - Immunizations Immunizations up to date: No Hx Diphtheria, Pertussis, Tetanus Vaccination: Yes Physical Exam - Vital signs Vitals: Temp Pulse Resp BP Pulse Ox 98.1 F 97 20 148/103 H 97 09/05/19 14:05 09/05/19 14:05 09/05/19 14:05 09/05/19 14:05 09/05/19 14:05 Course - Vital Signs Vital signs: Temp Pulse Resp BP Pulse Ox 98.1 F 97 20 148/103 H 97 09/05/19 14:05 09/05/19 14:05 09/05/19 14:05 09/05/19 14:05 09/05/19 14:05
--- NOTE | 2019-09-05 15:23 | ER Document Report ---
ED General - General Chief Complaint: Leg Pain Stated Complaint: ABNORMAL LABS Time Seen by Provider: 09/05/19 14:10 TRAVEL OUTSIDE OF THE [place] IN LAST 30 DAYS: No - HPI Notes: 44F presents today per private vehicle, ambulatory accompanied by her cousin. She was eval here in our ED late last night for 4d LLE swelling, at which time there was no way to obtain venous Doppler. she was treated w/ a dose lovenox at that time, then instructed to return to the ED in order to obtain a Doppler study and if that was positive to get more blood thinners. On my HPI she says it has been a few days prior to presenting to the ED last night Dany jt of mostly calf pain she says initially says it does not get worse with bearing weight but then on exam when she obviously is avoiding putting weight on that leg she says yes that makes it hurt. She denies any fever chills sweats. She does not think she has had any pain with moving at the hip. She says moving the knee does seem to hurt but it seems more in the "fat part of my leg at the calf". She thinks possibly the left knee is and leg is a little more swollen than the other. Denies any color changes denies any shortness of breath, other edema or fluid buildup in the abdomen or elsewhere no orthopnea PND. No dyspnea on exertion. She says she takes a medicine for hypertension she cannot member the name. And she takes a medicine for GERD she cannot remember the name. She says she was taking 6 500 mg ibuprofen intermittently the last was a few hours before coming to the ED last night. She denies any melena or dark stools or bright red blood per stools or abdominal or chest pain. She denies any history of gastric ulcers or GI bleeding. Says she has not had any new asthma exacerbations lately. other pmh per [facility] EMR: obesity, htn, GERD, hospitalization [facility] december 2018 respiratory compromise 2/2 asthma exacerbation +CAP, asthma exacerbaton adm before that as well. - Related Data Allergies/Adverse Reactions: No Known Drug Allergies Allergy (Verified 09/05/19 14:19) vinagar Allergy (Uncoded 09/05/19 14:19) Hives Home Medications: Realo/[place] Past Medical History - General Information source: Patient, [facility] Records - Social History Smoking Status: Former Smoker Chew tobacco use (# tins/day): No Frequency of alcohol use: None Drug Abuse: None Family History: Reviewed & Not Pertinent, Hypertension Patient has suicidal ideation: No Patient has homicidal ideation: No - Past Medical History Cardiac Medical History: Reports: Hx Hypertension Pulmonary Medical History: Reports: Hx Asthma, Hx Bronchitis Renal/ Medical History: Denies: Hx Peritoneal Dialysis GI Medical History: Reports: Hx Gastroesophageal Reflux Disease Psychiatric Medical History: Reports: Hx Anxiety, Hx Depression Past Surgical History: Reports: Hx Appendectomy, Hx Section - X2, Hx Hysterectomy, Hx Tubal Ligation - Immunizations Immunizations up to date: No Hx Diphtheria, Pertussis, Tetanus Vaccination: Yes Hx Pneumococcal Vaccination: 09/12/15 Review of Systems - Review of Systems Constitutional: No symptoms reported EENT: No symptoms reported Cardiovascular: No symptoms reported Respiratory: No symptoms reported Gastrointestinal: No symptoms reported Genitourinary: No symptoms reported Female Genitourinary: No symptoms reported Musculoskeletal: See HPI Skin: No symptoms reported Hematologic/Lymphatic: No symptoms reported Neurological/Psychological: No symptoms reported Physical Exam - Vital signs Vitals: Temp Pulse Resp BP Pulse Ox 98.1 F 97 20 148/103 H 97 09/05/19 14:05 09/05/19 14:05 09/05/19 14:05 09/05/19 14:05 09/05/19 14:05 Interpretation: Normal - General General appearance: Appears well, Alert - HEENT Head: Normocephalic, Atraumatic Eyes: Normal Pupils: PERRL - Respiratory Respiratory status: No respiratory distress Chest status: Nontender Breath sounds: Normal Chest palpation: Normal - Cardiovascular Rhythm: Regular Heart sounds: Normal auscultation Murmur: No - Abdominal Inspection: Normal Distension: No distension Bowel sounds: Normal Tenderness: Nontender Organomegaly: No organomegaly - Back Back: Normal, Nontender - Extremities General upper extremity: Normal inspection, Nontender, Normal color, Normal ROM, Normal temperature General lower extremity: Tender - LLL distal calf. (-) chawla's test for achilles involvement nontender achilles. full rom ankle knee and hip joints w/o ttp/swelling/deformity or overlying skin changes. L calf slightly larger circumference than RLE. no popliteal mass., Normal color, Normal ROM, Normal temperature, Normal weight bearing Hip: Normal Calf: No: Abrasion, Deformity, Ecchymosis, Instability, Laceration, Unable to bear weight Ankle: Nontender. No: Deformity, Ecchymosis, Instability, Limited ROM, Positive Chawla's test, Unable to bear weight Foot: Normal, Nontender. No: Deformity, Ecchymosis, Instability, No evidence of FB, Puncture wound - Neurological Neuro grossly intact: Yes Cognition: Normal Orientation: AAOx4 Valery Coma Scale Eye Opening: Spontaneous Valery Coma Scale Verbal: Oriented [place] Coma Scale Motor: Obeys Commands Valery Coma Scale Total: 15 Speech: Normal Motor strength normal: LUE, RUE, LLE, RLE Sensory: Normal - Psychological Associated symptoms: Normal affect, Normal mood - Skin Skin Temperature: Warm Skin Moisture: Dry Skin Color: Normal Course - Re-evaluation Re-evalutation: 09/05/19 16:16 Patient's Doppler is unofficially negative per the tech, I have ordered 30 IM Toradol I ambulated the patient she is actually reluctant to bear weight I ordered Multiview x-ray of the left knee given her obesity and exam findings per above. - Vital Signs Vital signs: Temp Pulse Resp BP Pulse Ox 98.1 F 82 18 148/64 H 97 09/05/19 20:51 09/05/19 20:51 09/05/19 20:51 09/05/19 20:51 09/05/19 20:51 Discharge - Discharge Clinical Impression: Pain of left calf Knee pain Qualifiers: Chronicity: acute Laterality: left Qualified Code(s): M25.562 - Pain in left knee Condition: Fair Disposition: HOME, SELF-CARE Additional Instructions: Today in the ER your ultrasound was negative for clot in your leg and your x-ray was negative for any fractures or severe osteoarthritis. On examination your knee and ankle joints are not unstable at all and all your tendons associated with the bones are working well. You may have just sprained your lower calf muscle therefore I would like you to try elevating it few times a day and at night when you are sitting down or sleeping on a few pillows above heart level. Also you can ice it a few minutes a few times a day in the next 2 days. Please not take more ibuprofen than I have written for since it can cause GI bleeding. Therefore make sure you are still taking your medications for reflux and you can take up to 3 tablets (600 mg ibuprofen) every 6 hours as needed for pain. If you are tolerating this well I would recommend today and maybe tomorrow while you are awake taking every 6 hours to get a baseline pain control. Continue to move your calf as tolerated and avoid anything that makes it hurt worse. Please follow-up with your primary care doctor for regular maintenance exams. If you begin to have fevers chills sweats or warmth or redness over the knee please return. I expect you to get better over the next few days if you do these things above therefore if there was some change in it gets severely worse please call your doctor for follow-up and you can always see us in the ED if you need to. Prescriptions: Ibuprofen 600 mg PO Q6HP PRN 3 Days tablet PRN Reason:
[2019-09-05] MEDS ORDERED: KETOROLAC TROMETHAMINE INJ/PF 30 MG/1 ML SDV IM ONE (16:14)
--- NOTE | 2019-09-05 16:47 | RADIOLOGY REPORT (SQ) ---
EXAM DESCRIPTION: VENOUS UNILATERAL LOWER COMPLETED DATE/TIME: 09/05/2019 4:00 pm REASON FOR STUDY: LLE pain COMPARISON: None. TECHNIQUE: Dynamic and static martinez scale and color images acquired of the left leg venous system. Se lected spectral images acquired with additional compression and augmentation maneuvers. The contralat eral common femoral vein and saphenofemoral junction were also imaged. Images stored on PACS. LIMITATIONS: None. FINDINGS: COMMON FEMORAL: Normal phasicity, compression and augmentation. No visualized echogenic ma terial on martinez scale. No defects on color images. FEMORAL: Normal compression and augmentation. No visualized echogenic material on martinez scale. No defe cts on color images. POPLITEAL: Normal compression, augmentation. No visualized echogenic material on martinez scale. No defec ts on color images. CALF VESSELS: Normal compression, augmentation. No visualized echogenic material on martinez scale. No de fects on color images. GSV and SSV: Normal compression, augmentation. No visualized echogenic material on martinez scale. No def ects on color images. ANY DEEP VENOUS INSUFFICIENCY: Not evaluated. ANY EVIDENCE OF POPLITEAL CYST: No. OTHER: No other significant finding. CONTRALATERAL COMMON FEMORAL VEIN AND SAPHENOFEMORAL JUNCTION: Normal phasicity, compression and augmentation. No visualized echogenic material on martinez scale. No de fects on color images. IMPRESSION: Negative examination for deep venous thrombosis in the left lower extremity. TECHNICAL DOCUMENTATION: JOB ID: [id number] [employer]- All Rights Reserved Reading location - IP/workstation name: [email or web address]
--- NOTE | 2019-09-05 16:51 | RADIOLOGY REPORT (SQ) ---
EXAM DESCRIPTION: KNEE LEFT 3 VIEWS COMPLETED DATE/TIME: 09/05/2019 4:32 pm REASON FOR STUDY: knee pain reluctance to bear wt COMPARISON: None. NUMBER OF VIEWS: Three views. TECHNIQUE: AP, lateral, and sunrise patella radiographic images acquired of the left knee. LIMITATIONS: None. FINDINGS: MINERALIZATION: Normal. BONES: No acute fracture or dislocation. No worrisome bone lesions. JOINT: No effusion. SOFT TISSUES: No soft tissue swelling. No radio-opaque foreign body. OTHER: No other significant finding. IMPRESSION: NEGATIVE STUDY OF THE LEFT KNEE. NO RADIOGRAPHIC EVIDENCE OF ACUTE INJURY. TECHNICAL DOCUMENTATION: JOB ID: [id number] [employer]- All Rights Reserved Reading location - IP/workstation name: [email or web address]
[2019-09-05 20:54] VITALS: BP 148/64
== END 2019-09-05 20:51 | disposition home or self-care (01) ==
LOC: ER 14:00
DX: M79.661 Pain in right lower leg (principal); M25.562 Pain in left knee; M79.662 Pain in left lower leg; E66.9 Obesity, unspecified; J45.909 Unspecified asthma, uncomplicated; I10 Essential (primary) hypertension; K21.9 Gastro-esophageal reflux disease without esophagitis; Z79.899 Other long term (current) drug therapy; Z91.048 Other nonmedicinal substance allergy status
CPT/HCPCS: 99284; 96372; 93971; 73562; J1885

== ENCOUNTER 2019-10-07 10:00 | Emergency (ER) | payer MEDICAID ==
[2019-10-07] MEDS: ALBUTEROL SULFATE 0.083% NEB 2.5 MG/3 ML AMPUL NEB SCH ×2 (10:42→10:54)
--- NOTE | 2019-10-07 10:55 | RADIOLOGY REPORT (SQ) ---
EXAM DESCRIPTION: CHEST 2 VIEWS COMPLETED DATE/TIME: 10/07/2019 10:33 am REASON FOR STUDY: productive cough/wheezing x1 week COMPARISON: Chest films 09/30/2018, 08/05/2018 EXAM PARAMETERS: NUMBER OF VIEWS: two views TECHNIQUE: Digital Frontal and Lateral radiographic views of the chest acquired. RADIATION DOSE: NA LIMITATIONS: none FINDINGS: LUNGS AND PLEURA: No opacities, masses or pneumothorax. No pleural effusion. MEDIASTINUM AND HILAR STRUCTURES: No masses or contour abnormalities. HEART AND VASCULAR STRUCTURES: Stable cardiomegaly BONES: No acute findings. HARDWARE: None in the chest. OTHER: No other significant finding. IMPRESSION: Moderate cardiomegaly. No acute findings TECHNICAL DOCUMENTATION: JOB ID: [id number] [employer]- All Rights Reserved Reading location - IP/workstation name: [email or web address]
[2019-10-07] MEDS ORDERED: ALBUTEROL SULFATE 0.083% NEB 2.5 MG/3 ML AMPUL NEB ONE (11:30)
[2019-10-07] MEDS ORDERED: DEXAMETHASONE 4 MG TABLET PO ONE (11:30)
--- NOTE | 2019-10-07 11:31 | ER Document Report ---
ED Respiratory Problem - General Chief Complaint: Productive Cough Stated Complaint: ASTHMA Time Seen by Provider: 10/07/19 11:22 Notes: CHIEF COMPLAINT: Difficulty breathing over the last week HPI: 44-year-old female with asthma history presenting for increasing shortness of breath over the last week. Patient states she thought she had a cold last week called her PCP who called her in an antibiotic. Patient does not recall the name of the antibiotic but states she did take it for 3 times daily for a week. She states she feels no better. Patient uses nebulizer at home for her asthma states she has been increasing her dosing of breathing treatments from every 6 hours to every 3-4 hours and still feels short of breath. Denies fever. Denies leg pain recent travel or prolonged immobilization ROS: See HPI - all other systems were reviewed and are otherwise negative Constitutional: no fever Eyes: no drainage, no blurred vision ENT: no runny nose, no sore throat Cardiovascular: no chest pain Resp: + SOB, + cough GI: no vomiting, no diarrhea, no abdominal pain : no dysuria Integumentary: no rash Allergy: no hives Musculoskeletal: no extremity pain or swelling Neurological: no numbness/tingling, no weakness MEDICATIONS: I agree with the patient medications as charted by the RN. ALLERGIES: I agree with the allergies as charted by the RN. PAST MEDICAL HISTORY/PAST SURGICAL HISTORY: Reviewed and agree as charted by RN. SOCIAL HISTORY: Reviewed and agree as charted by RN. FAMILY HISTORY: No significant familial comorbid conditions directly related to patient complaint EXAM: Reviewed vital signs as charted by RN. CONSTITUTIONAL: Alert and oriented and responds appropriately to questions. Well-appearing; well-nourished, mild distress secondary to shortness of breath HEAD: Normocephalic; atraumatic EYES: PERRL; Conjunctivae clear, sclerae non-icteric ENT: normal nose; no rhinorrhea; moist mucous membranes; pharynx without lesions noted, no uvula edema or deviation, no tonsillar hypertrophy, phonation normal NECK: Supple without meningismus; non-tender; no cervical lymphadenopathy, no masses CARD: RRR; no murmurs, no clicks, no rubs, no gallops; symmetric distal pulses RESP: Normal chest excursion without splinting or tachypnea; breath sounds noted to have expiratory wheezing in all lung mcqueen, no rhonchi, no rales, pulse oximetry 97% on room air not hypoxic ABD/GI: Normal bowel sounds; non-distended; soft, non-tender, no rebound, no guarding; no palpable organomegaly or masses. BACK: The back appears normal and is non-tender to palpation, there is no CVA tenderness EXT: Normal ROM in all joints; non-tender to palpation; no cyanosis, no effusions, no edema SKIN: Normal color for age and race; warm; dry; good turgor; no acute lesions noted NEURO: Moves all extremities equally; Motor and sensory function intact PSYCH: The patient's mood and manner are appropriate. Grooming and personal hygiene are appropriate. MDM: 44-year-old female with asthma history presenting for continued shortness of breath. Patient likely having asthma exacerbation was not called in steroids by her PCP. Will give Decadron here, patient received DuoNeb by EMS, 2 albuterol breathing treatments here. Will place her on a 10 mg continuous neb as she is still slightly tight and mildly dyspneic with speaking. TRAVEL OUTSIDE OF THE [place] IN LAST 30 DAYS: No - Related Data Allergies/Adverse Reactions: No Known Drug Allergies Allergy (Verified 09/05/19 14:19) vinagar Allergy (Uncoded 09/05/19 14:19) Hives Home Medications: BP medication: maybe lisinopril. Inhaler. Nebulizer. Reflux medication Past Medical History - Social History Smoking Status: Former Smoker Frequency of alcohol use: None Drug Abuse: None Family History: Reviewed & Not Pertinent, Hypertension Patient has suicidal ideation: No Patient has homicidal ideation: No - Past Medical History Cardiac Medical History: Reports: Hx Hypertension Pulmonary Medical History: Reports: Hx Asthma, Hx Bronchitis Renal/ Medical History: Denies: Hx Peritoneal Dialysis GI Medical History: Reports: Hx Gastroesophageal Reflux Disease Psychiatric Medical History: Reports: Hx Anxiety, Hx Depression Past Surgical History: Reports: Hx Appendectomy, Hx Section - X2, Hx Hysterectomy, Hx Tubal Ligation - Immunizations Immunizations up to date: No Hx Diphtheria, Pertussis, Tetanus Vaccination: Yes Hx Pneumococcal Vaccination: 09/12/15 Physical Exam - Vital signs Vitals: Temp Pulse Resp BP Pulse Ox 98.2 F 89 20 126/72 H 97 10/07/19 10:05 10/07/19 10:05 10/07/19 10:05 10/07/19 10:05 10/07/19 10:05 Course - Re-evaluation Re-evalutation: 10/07/19 13:01 Patient on her peak flow after continuous neb was able to blow 300 was an expected of 436. This is approximately 75%. She states she feels much better. She does not become dyspneic with speaking. She has been admitted 3 times previously for asthma the patient although she continues with wheezing has received Decadron. She also states that she feels much better and would like to go home. She will continue using her albuterol inhaler at home every 4 hours, will continue patient on prednisone, strict return instructions for worsening shortness of breath were discussed - Vital Signs Vital signs: Temp Pulse Resp BP Pulse Ox 98.2 F 89 20 126/72 H 97 10/07/19 10:05 10/07/19 10:05 10/07/19 10:05 10/07/19 10:05 10/07/19 10:05 Discharge - Discharge Clinical Impression: Asthma exacerbation Qualifiers: Asthma severity: moderate Asthma persistence: unspecified Qualified Code(s): J45.901 - Unspecified asthma with (acute) exacerbation Condition: Stable Disposition: HOME, SELF-CARE Instructions: Asthma ([facility]) Additional Instructions: Continue the steroids as prescribed. Continue to use your nebulizer or your inhaler every 4 hours for wheezing and shortness of breath. Follow-up with your primary care provider in 1 to 2 days for recheck. If you have worsening shortness of breath return for reevaluation as discussed Prescriptions: Prednisone [Deltasone 20 mg Tablet] 2 tab PO DAILY 5 Days tablet Referrals: RICO MCKAY MD [ACTIVE STAFF] - Follow up as needed
[2019-10-07 13:11] VITALS: BP 137/93
== END 2019-10-07 13:15 | disposition home or self-care (01) ==
LOC: ER 10:00
DX: J45.901 Unspecified asthma with (acute) exacerbation (principal); R06.02 Shortness of breath; R05 Cough; I10 Essential (primary) hypertension; K21.9 Gastro-esophageal reflux disease without esophagitis; Z79.899 Other long term (current) drug therapy; Z91.018 Allergy to other foods; Z87.891 Personal history of nicotine dependence
CPT/HCPCS: 94640 ×2; 99285; 71046; J3490; J8540

== ENCOUNTER 2019-10-31 21:16 | Emergency (ER) | payer MEDICAID ==
--- NOTE | 2019-10-31 22:24 | EKG REPORT ---
SEVERITY:- BORDERLINE ECG - SINUS RHYTHM BORDERLINE T ABNORMALITIES, ANTERIOR LEADS : Confirmed by: Alhaji Magana 31-Oct-2019 22:23:46
[2019-10-31 22:32] LABS: ABSOLUTE EOSINOPHILS # (AUTO) 0.7 10^3/uL (0.0-0.6); ABSOLUTE LYMPHOCYTES (AUTO) 1.7 10^3/uL (0.5-4.7); ABSOLUTE MONOCYTES (AUTO) 0.4 10^3/uL (0.1-1.4); ABSOLUTE NEUT (AUTO) 4.2 10^3/uL (1.7-8.2); BASOPHILS % (AUTO) 0.7 % (0-2); EOSINOPHILS % (AUTO) 9.9 % (0-6); HEMATOCRIT 38.9 % (36.0-47.0); HEMOGLOBIN 13.2 g/dL (12.0-15.5); LYMPHOCYTES % (AUTO) 24.4 % (13-45); MEAN CORPUSCULAR HEMOGLOBIN 28.4 pg (27.0-33.4); MEAN CORPUSCULAR VOLUME 83 fl (80-97); MONOCYTES % (AUTO) 5.8 % (3-13); PLATELET COUNT 314 10^3/uL (150-450); RED BLOOD COUNT 4.67 10^6/uL (3.72-5.28); RED CELL DISTRIBUTION WIDTH 13.8 % (11.5-14.0); SEGMENTED NEUTROPHILS % (AUTO) 59.2 % (42-78); TOTAL CELLS COUNTED % (AUTO) 100 %
[2019-10-31 22:33] LABS: ALBUMIN 3.9 g/dL (3.5-5.0); ALKALINE PHOSPHATASE 54 U/L (38-126); ANION GAP 10 (5-19); ASPARTATE AMINO TRANSFERASE 21 U/L (14-36); BILIRUBIN,DIRECT 0.3 mg/dL (0.0-0.4); BILIRUBIN,TOTAL 0.7 mg/dL (0.2-1.3); BLOOD UREA NITROGEN 10 mg/dL (7-20); CALCIUM 9.1 mg/dL (8.4-10.2); CARBON DIOXIDE 24 mmol/L (22-30); CHLORIDE 103 mmol/L (98-107); GLUCOSE 107 mg/dL (75-110); POTASSIUM 4.1 mmol/L (3.6-5.0); TOTAL PROTEIN 7.3 g/dL (6.3-8.2)
--- NOTE | 2019-10-31 22:33 | RADIOLOGY REPORT (SQ) ---
EXAM DESCRIPTION: AP portable radiograph of the chest CLINICAL HISTORY: 44 years Female, SOB COMPARISON: Two views of the chest October 07, 2019 FINDINGS: Lungs: Lung volumes have decreased. No focal consolidation. No pneumothorax or pleural effusion. Mediastinum: Cardiac and mediastinal silhouette are normal. Bones: Osseous structures are normal. IMPRESSION: Interval reduction in lung volumes. No acute process.
[2019-10-31 23:53] LABS: APPEARANCE,URINE CLEAR; BILIRUBIN,URINE NEGATIVE (NEGATIVE); COLOR,URINE YELLOW; GLUCOSE, URINE NEGATIVE (NEGATIVE); KETONES,URINE NEGATIVE (NEGATIVE); LEUKOCYTE ESTERASE,URINE NEGATIVE (NEGATIVE); NITRITE,URINE NEGATIVE (NEGATIVE); PROTEIN,URINE 30 mg/dL (NEGATIVE); URINE SPECIFIC GRAVITY 1.031
--- NOTE | 2019-11-01 01:36 | ER Document Report ---
Entered by ADRIANA KRUSE SCRIBE 11/01/19 0135 Acting as scribe for:JENNIFER PALACIOS MD ED General - General Chief Complaint: Breathing Difficulty Stated Complaint: DIFFICULTY BREATHING Time Seen by Provider: 11/01/19 00:55 Information source: Patient Notes: 44-year-old female presents to the emergency department via EMS complaining of difficulty breathing since this morning. Patient explains that she has had on and off episodes where she "can't breath". Patient states that she has been to the ED before for this same problem. Patient reports that her voice gets hoarse with these breathing episodes happen. Patient complains of a dry cough and denies fever, chills, diaphoresis and constipation. TRAVEL OUTSIDE OF THE [place] IN LAST 30 DAYS: No - Related Data Allergies/Adverse Reactions: vinagar Allergy (Uncoded 10/31/19 21:27) Hives Home Medications: ALB INHALER AND NEBS. HTNS MEDS. GERD Past Medical History - General Information source: Patient - Social History Smoking Status: Former Smoker Cigarette use (# per day): No Chew tobacco use (# tins/day): No Frequency of alcohol use: None Drug Abuse: None Lives with: Family Family History: Reviewed & Not Pertinent, Hypertension Patient has suicidal ideation: No Patient has homicidal ideation: No - Past Medical History Cardiac Medical History: Reports: Hx Hypertension Pulmonary Medical History: Reports: Hx Asthma, Hx Bronchitis, Hx Pneumonia GI Medical History: Reports: Hx Gastroesophageal Reflux Disease Psychiatric Medical History: Reports: Hx Anxiety, Hx Depression Past Surgical History: Reports: Hx Appendectomy, Hx Section - X2, Hx Hysterectomy, Hx Tubal Ligation - Immunizations Immunizations up to date: No Hx Diphtheria, Pertussis, Tetanus Vaccination: Yes Hx Pneumococcal Vaccination: 09/12/15 Review of Systems - Review of Systems Constitutional: See HPI. denies: Chills, Fever EENT: No symptoms reported Cardiovascular: No symptoms reported Respiratory: See HPI, Cough, Short of breath Gastrointestinal: No symptoms reported Genitourinary: No symptoms reported Female Genitourinary: No symptoms reported Musculoskeletal: No symptoms reported Skin: No symptoms reported Hematologic/Lymphatic: No symptoms reported Neurological/Psychological: denies: Homicidal ideation, Suicidal ideation -: Yes All other systems reviewed and negative Physical Exam - Vital signs Vitals: Resp BP Pulse Ox 25 H 117/95 H 96 10/31/19 21:24 10/31/19 21:24 10/31/19 21:24 - Notes Notes: Physical Exam: General: Alert, appears well. Obese. HEENT: Normocephalic. Atraumatic. PERRL. Extraocular movements intact. Oropharynx clear. Hoarseness. Neck: Supple. Non-tender. Respiratory: No respiratory distress. Clear and equal breath sounds bilaterally. Cardiovascular: Regular rate and rhythm. Abdominal: Normal Inspection. Non-tender. No distension. Normal Bowel Sounds. Back: No gross abnormalities. Extremities: Moves all four extremities. Upper extremities: Normal inspection. Normal ROM. Lower extremities: Normal inspection. No edema. Normal ROM. Neurological: Normal cognition. AAOx4. Normal speech. Psychological: Normal affect. Normal Mood. Skin: Warm. Dry. Normal color. Course - Vital Signs Vital signs: Temp Pulse Resp BP Pulse Ox 98.4 F 83 24 H 115/59 L 96 10/31/19 21:27 10/31/19 21:27 10/31/19 23:01 10/31/19 23:01 10/31/19 23:01 - Laboratory Result Diagrams: 10/31/19 21:59 10/31/19 21:59 Laboratory results interpreted by me: 10/31/19 10/31/19 10/31/19 21:59 21:59 23:21 Eos % (Auto) 9.9 H Absolute Eos (auto) 0.7 H Sodium 136.7 L Urine Protein 30 H Urine Urobilinogen 2.0 H Discharge - Discharge Clinical Impression: Asthma exacerbation, GERD (gastroesophageal reflux disease) Condition: Stable Disposition: HOME, SELF-CARE Prescriptions: Prednisone [Deltasone 10 mg Tablet] 10 mg PO ASDIR PRN #21 tablet PRN Reason: I personally performed the services described in the documentation, reviewed and edited the documentation which was dictated to the scribe in my presence, and it accurately records my words and actions.
[2019-11-01 02:16] VITALS: BP 116/60
== END 2019-11-01 02:15 | disposition home or self-care (01) ==
LOC: ER 21:16
DX: J45.901 Unspecified asthma with (acute) exacerbation (principal); K21.9 Gastro-esophageal reflux disease without esophagitis; R06.02 Shortness of breath; R49.0 Dysphonia; R05 Cough; Z88.9 Allergy status to unspecified drugs, medicaments and biological substances; Z79.899 Other long term (current) drug therapy; I10 Essential (primary) hypertension; Z87.891 Personal history of nicotine dependence
CPT/HCPCS: 36415; 71045; 80053; 81001; 85025; 87040; 93005; 93010

== ENCOUNTER 2019-12-26 03:31 | Emergency (ER) | payer MEDICAID ==
[2019-12-26] MEDS ORDERED: NORMAL SALINE 1000 ML 1,000 ML IV ONE (04:11)
[2019-12-26] MEDS ORDERED: IPRATROPIUM/ALBUTEROL 0.5-2.5 MG/3 ML AMPUL NEB ONE (04:12)
--- NOTE | 2019-12-26 04:13 | ER Document Report ---
ED Respiratory Problem - General Chief Complaint: Shortness Of Breath Stated Complaint: SHORTNESS OF BREATH Time Seen by Provider: 12/26/19 04:00 Notes: Patient is a 44-year-old female that comes emergency department for chief complaint of an asthma exacerbation. She comes by EMS, she received 2 DuoNeb treatments and 125 mg of Solu-Medrol by EMS. Patient states she does feel improved but her symptoms are not completely gone. Patient states that for the past 2 days she has had a worsening productive cough including greenish- yellowish looking sputum and when she coughed up a tiny bit of blood-tinged sputum. She denies fever/chills, sore throat, nausea/vomiting, body aches. She denies steroids within the past few weeks. She denies smoking, recent travel, sick contacts. She has a history of hypertension, anxiety/depression, tubal ligation. TRAVEL OUTSIDE OF THE [place] IN LAST 30 DAYS: No - Related Data Allergies/Adverse Reactions: vinagar Allergy (Uncoded 10/31/19 21:27) Hives Home Medications: Omeprazole 20mg BID. Lisinopril 10mg daily Past Medical History - General Information source: Patient - Social History Smoking Status: Former Smoker Chew tobacco use (# tins/day): No Frequency of alcohol use: None Drug Abuse: None Lives with: Family Family History: Reviewed & Not Pertinent, Hypertension Patient has suicidal ideation: No Patient has homicidal ideation: No - Past Medical History Cardiac Medical History: Reports: Hx Hypertension Pulmonary Medical History: Reports: Hx Asthma, Hx Bronchitis, Hx Pneumonia Renal/ Medical History: Denies: Hx Peritoneal Dialysis GI Medical History: Reports: Hx Gastroesophageal Reflux Disease Psychiatric Medical History: Reports: Hx Anxiety, Hx Depression Past Surgical History: Reports: Hx Appendectomy, Hx Section - X2, Hx Hysterectomy, Hx Tubal Ligation - Immunizations Immunizations up to date: Yes Hx Diphtheria, Pertussis, Tetanus Vaccination: Yes Hx Pneumococcal Vaccination: 09/12/15 Review of Systems - Review of Systems Constitutional: No symptoms reported EENT: No symptoms reported Cardiovascular: No symptoms reported Respiratory: See HPI Gastrointestinal: No symptoms reported Genitourinary: No symptoms reported Female Genitourinary: No symptoms reported Musculoskeletal: No symptoms reported Skin: No symptoms reported Hematologic/Lymphatic: No symptoms reported Neurological/Psychological: No symptoms reported Physical Exam - Vital signs Vitals: Resp Pulse Ox 20 97 12/26/19 03:43 12/26/19 03:43 - Notes Notes: GENERAL: Alert, interacts well. No acute distress. HEAD: Normocephalic, atraumatic. EYES: Pupils equal, round, and reactive to light. Extraocular movements intact. ENT: Oral mucosa moist, tongue midline. Oropharynx unremarkable. Airway patent. Nares patent, sinuses non-tender NECK: Full range of motion. Supple. Trachea midline. No lymphadenopathy. LUNGS: Expiratory wheezes heard throughout, slightly decreased breath sounds. No tachypnea, labored breathing, or distress. Patient speaks in full sentences. HEART: Regular rate and rhythm. No murmur ABDOMEN: Soft, non-tender. Non-distended. EXTREMITIES: Moves all 4 extremities spontaneously. No edema, normal radial and dorsalis pedis pulses bilaterally. No cyanosis. BACK: no cervical, thoracic, lumbar midline tenderness. No saddle anesthesia, normal distal neurovascular exam. Moves all extremities in full range of motion. NEUROLOGICAL: Alert and oriented x3. Normal speech. Cranial nerves II through XII grossly intact. Strength 5/5 in all extremities. PSYCH: Normal affect, normal mood. SKIN: Warm, dry, normal turgor. No rashes or lesions noted. Course - Re-evaluation Re-evalutation: EKG had not been initiated by staff, this did show sinus tachycardia with no ischemic changes, however patient is not tachycardic on my exam or on monitoring. Patient is not hypoxic or febrile. Patient did have initial expiratory wheezes, patient was given IV fluids, magnesium, and a third DuoNeb, afterwards symptoms of wheezing and shortness of breath completely resolved. On reevaluation patient has no current symptoms. Chest x-ray is clear, infl uenza negative, coronavirus testing pending. Patient did not have any other symptoms except cough and wheezing. I discussed with patient. Patient will be treated for asthma exacerbation, given quarantine recommendations which were discussed, discussed expectations, follow-up, return precautions in detail. Patient states appreciation and agreement. Stable and well-appearing at time of discharge. - Vital Signs Vital signs: Temp Pulse Resp BP Pulse Ox 98.9 F 97 27 H 134/53 H 96 12/26/19 03:45 12/26/19 03:45 12/26/19 06:01 12/26/19 06:01 12/26/19 06:01 Discharge - Discharge Clinical Impression: Wheezing, Cough Asthma exacerbation Qualifiers: Asthma severity: moderate Asthma persistence: unspecified Qualified Code(s): J45.901 - Unspecified asthma with (acute) exacerbation Condition: Stable Disposition: HOME, SELF-CARE Additional Instructions: Your chest x-ray is normal, the influenza test is negative, the coronavirus test is still pending. Your evaluation is consistent with an asthma exacerbation. Take prednisone as prescribed, continue your home albuterol with spacer and or the nebulizer. Drink plenty of fluids, rest. I recommend the famotidine to avoid stomach upset from the prednisone. See additional details on quarantine below. Follow-up with your primary care provider. Return if you worsen including spiking fever, difficulty breathing, or any other concerning or worsening symptoms. As a person under investigation for COVID-19, the [place] Department of Health and Human Services (divison on public health) advises you to adhere to the following guidance until your test results are reported to you. If your test result is positive, you will receive additional information from your provider and your local health department at that time. Remain at home until you are cleared by the health provider or public health authorities. Keep a log of visitors to your home, notify any visitors to your home of your isolation status. If you plan to move to a new address or leave the [facility], notify the local health department in your [facility]. Call your Doctor or seek care if you have an urgent medical need. Before seeking medical care, call him to get instructions from the provider before arriving at the medical office, clinic, or hospital. Notify them that you are being tested for the virus (COVID-19) so that arrangements can be made, as necessary, to prevent transmission to others in the healthcare setting. Next, notify the local health department in your county. If a medical emergency arises and you need to call 911, inform the first responders that you are being tested for the virus that causes COVID-19. Next, n otify the local health department in your [facility]. Prescriptions: Prednisone [Deltasone 20 mg Tablet] 3 tab PO DAILY 5 Days #15 tablet Famotidine [Pepcid 20 mg Tablet] 20 mg PO BID #10 tablet
[2019-12-26] MEDS: MAGNESIUM SULFATE/D5W 1 GM/100 ML RTUPB IV SCH ×2 (04:44→05:48)
--- NOTE | 2019-12-26 04:57 | RADIOLOGY REPORT (SQ) ---
EXAM DESCRIPTION: XR CHEST 1 VIEW COMPLETED DATE/TME: 12/26/2019 04:11 CLINICAL HISTORY: shortness of breath, productive cough COMPARISON: 10/31/2019 FINDINGS: Single frontal view of the chest. Cardiomediastinal silhouette: Normal size and contour. Lungs: No consolidation, pneumothorax, or pleural effusion. Low lung volumes. Leads overlie the chest. Prominent pericardial fat pad. Bones: No acute osseous abnormality. Upper abdomen: No abnormality identified. IMPRESSION: 1. No acute pulmonary process identified.
[2019-12-26 05:26] LABS: A TYPE INFLUENZA AG NEGATIVE (NEGATIVE); B INFLUENZA AG NEGATIVE (NEGATIVE)
[2019-12-26 06:46] VITALS: BP 114/69
--- NOTE | 2019-12-26 07:33 | EKG REPORT ---
SEVERITY:- BORDERLINE ECG - SINUS TACHYCARDIA BORDERLINE T ABNORMALITIES, DIFFUSE LEADS : Confirmed by: Nasim Taveras MD 26-Dec-2019 07:33:04
== END 2019-12-26 06:47 | disposition home or self-care (01) ==
LOC: ER 03:31
DX: J45.901 Unspecified asthma with (acute) exacerbation (principal); R05 Cough; R00.0 Tachycardia, unspecified; I10 Essential (primary) hypertension; K21.9 Gastro-esophageal reflux disease without esophagitis; Z79.899 Other long term (current) drug therapy; Z87.891 Personal history of nicotine dependence; Z91.018 Allergy to other foods; Z20.828 Contact with and (suspected) exposure to other viral communicable diseases
CPT/HCPCS: 93005; 94640; 99285; 96365; 96366; 87635; 87804; 71045; 93010; J3475; J7030; J7620

== ENCOUNTER 2020-01-11 12:08 | Emergency (ER) | payer MEDICAID ==
--- NOTE | 2020-01-11 12:59 | ER Document Report ---
ED Extremity Problem, Lower - General Chief Complaint: Knee Pain Stated Complaint: RIGHT LEG PAIN Time Seen by Provider: 01/11/20 12:53 Primary Care Provider: [facility] [Provider Group] - Follow up as needed Mode of Arrival: Wheelchair Information source: Patient Notes: 44-year-old female presented to ED for complaint of right knee pain that started this morning. She states she did not fall she did not injure her knee it just started hurting when she got out of bed. She does states she has a history of asthma bilateral tubal Gratian appendectomy high blood pressure and reflux. She states she has not fallen she has not injured it. She states she cannot move it but when I moved that she was then able to lift to the bed the. There is no swelling there is no bruising. TRAVEL OUTSIDE OF THE [place] IN LAST 30 DAYS: No - HPI Patient complains to provider of: Pain, Swelling. No: Injury Location: Knee Occurred: This morning Where: Home, Indoors Onset/Duration: Sudden Quality of pain: Sharp, Throbbing Severity: Severe Pain Level: 5 Recent injury: No Associated symptoms: Painful ambulation Exacerbated by: Movement, Walking Relieved by: Nothing - Related Data Allergies/Adverse Reactions: vinagar Allergy (Uncoded 01/11/20 12:42) Hives Home Medications: asthma. htn. gerd Past Medical History - General Information source: Patient - Social History Smoking Status: Former Smoker Chew tobacco use (# tins/day): No Frequency of alcohol use: None Drug Abuse: None Lives with: Parents Family History: Reviewed & Not Pertinent, Hypertension Patient has homicidal ideation: No - Past Medical History Cardiac Medical History: Reports: Hx Hypertension Pulmonary Medical History: Reports: Hx Asthma, Hx Bronchitis, Hx Pneumonia EENT Medical History: Reports: None Neurological Medical History: Reports: None Endocrine Medical History: Reports: None Renal/ Medical History: Reports: None Malignancy Medical History: Reports: None GI Medical History: Reports: Hx Gastroesophageal Reflux Disease Musculoskeletal Medical History: Reports None Skin Medical History: Reports None Psychiatric Medical History: Reports: Hx Anxiety, Hx Depression Traumatic Medical History: Reports: None Infectious Medical History: Reports: None Past Surgical History: Reports: Hx Appendectomy, Hx Section - X2, Hx Hysterectomy, Hx Tubal Ligation - Immunizations Immunizations up to date: Yes Hx Diphtheria, Pertussis, Tetanus Vaccination: Yes Hx Pneumococcal Vaccination: 09/12/15 Review of Systems - Review of Systems Constitutional: No symptoms reported EENT: No symptoms reported Cardiovascular: No symptoms reported Respiratory: No symptoms reported Gastrointestinal: No symptoms reported Genitourinary: No symptoms reported Female Genitourinary: No symptoms reported Musculoskeletal: Joint pain - Right knee pain. denies: Joint swelling Skin: No symptoms reported Hematologic/Lymphatic: No symptoms reported Neurological/Psychological: No symptoms reported -: Yes All other systems reviewed and negative Physical Exam - Vital signs Vitals: Temp Pulse Resp BP Pulse Ox 97.7 F 78 16 135/91 H 98 01/11/20 12:12 01/11/20 12:12 01/11/20 12:12 01/11/20 12:12 01/11/20 12:12 Interpretation: Normal - General General appearance: Appears well, Alert - HEENT Head: Normocephalic, Atraumatic Eyes: Normal Pupils: PERRL - Respiratory Respiratory status: No respiratory distress Chest status: Nontender Breath sounds: Normal Chest palpation: Normal - Cardiovascular Rhythm: Regular Heart sounds: Normal auscultation Murmur: No - Abdominal Inspection: Normal Distension: No distension Bowel sounds: Normal Tenderness: Nontender Organomegaly: No organomegaly - Back Back: Normal, Nontender - Extremities General upper extremity: Normal inspection, Nontender, Normal color, Normal ROM, Normal temperature General lower extremity: Normal inspection, Normal color, Normal temperature, Normal weight bearing. No: Nichelle's sign Hip: Normal, Nontender Thigh: Normal, Nontender Knee: Tender, Pain with ROM, Patellar tendon intact, Tender joint line. No: Abrasion, Deformity, Dislocation, Drawer's test instability, Ecchymosis, Instability, Joint effusion, Laceration, Laxity with valgus stress, Laxity with varus stress, Popliteal fossa tender, Unable to bear weight - Pain with ambulation Calf: Normal, Nontender Ankle: Normal, Nontender - Neurological Neuro grossly intact: Yes Cognition: Normal Orientation: AAOx4 [place] Coma Scale Eye Opening: Spontaneous [place] Coma Scale Verbal: Oriented Valery Coma Scale Motor: Obeys Commands Valery Coma Scale Total: 15 Speech: Normal Motor strength normal: LUE, RUE, LLE, RLE Sensory: Normal - Psychological Associated symptoms: Normal affect, Normal mood - Skin Skin Temperature: Warm Skin Moisture: Dry Skin Color: Normal Course - Re-evaluation Re-evalutation: 01/11/20 13:45 Knee x-ray showed a mild knee effusion but no bony abnormalities. Discussed with Dr. Frey that she could have a knee immobilizer or Sam wrap but she needs to follow-up with her primary care and/or orthopedics. She may need a MRI at some point. Patient verbalized understanding and agreement with treatment plan patient was discharged home. - Vital Signs Vital signs: Temp Pulse Resp BP Pulse Ox 98.1 F 77 18 126/88 H 100 01/11/20 14:14 01/11/20 14:14 01/11/20 14:14 01/11/20 14:14 01/11/20 14:14 - Diagnostic Test Radiology reviewed: Image reviewed, Reports reviewed Procedures - Immobilization Right Knee Time completed: 13:55 Pre-Proc Neuro Vasc Exam: Normal Immobilizer type: Knee immobilizer Performed by: PCT Post-Proc Neuro Vasc Exam: Normal Alignment checked and good: Yes Discharge - Discharge Clinical Impression: Knee effusion, right Condition: Stable Disposition: HOME, SELF-CARE Additional Instructions: Knee Effusion You have a fluid collection in the knee joint, called an effusion. This fluid build up can occur from irritation of the synovial membrane lining the knee joint or from a more serious injury to the knee. Irritation of the membrane can occur from excessive, repetitive knee activitiy, like kneeling or squatting for extended periods or even just excessive walking, jogging, or skiing. Effusions also can occur with infections in the joint and with some arthritic conditions, especially gout. Fluid collections in these situations are usually yellow in color and either clear or cloudy in appearance. Signi ficant injury to the knee can result in fluid collection which is partly or entirely blood and this condition is known as a hemarthrosis of the knee joint. If the fluid collection is not too large and/or painful, it can be managed conservatively with rest, ice packs, and anti-inflammatory and pain medications as needed. If the fluid collection is large and very painful, the knee joint can be drained (aspirated) by a relatively minor procedure of inserting a needle in the joint and removing some or all of the fluid present. If your knee was aspirated, you should rest it as much as possible for a few days, keep a pressure dressing around the knee and apply ice packs for at least 48 - 72 hours. If there are signs of developing infection such as heat and redness of the knee, fever, etc. you should return immediately for a recheck. SUSPECTED INTERNAL KNEE INJURY: The examiner of your injured knee suspects an internal injury to the cartilage or internal ligaments. This must be further investigated by an asw specialist. The knee should be protected, ice packed, and elevated while awaiting your follow-up exam by the orthopedist. If there is severe swelling, severe pain, or any new symptoms while awaiting your exam, you should call the orthopedist. (If he/she is unavailable, call us or return for re-examination.) KNEE IMMOBILIZING SPLINT: The knee immobilizing splint will protect the injury while healing begins. This type of splint does not allow the knee to bend at all. No running or sports will be possible. If the splint allows painfree walking, it's giving adequate protection. If there is still significant pain, crutches may be needed as well. Don't do anything that hurts. Adjusted the splint, if necessary. The stiffeners on the sides are attached with Velcro, so they can be easily moved to adjust for thigh and calf size. If you need help with these adjustments, come back. You will lose muscle strength in the thigh while using this splint. The doctor will advise you if it's safe to do isometric knee exercises while you use it. USE OF CRUTCHES: The doctor has recommended that you not bear weight at this time. You will need to use crutches. Adjust the crutches so the tops come to about two inches under the armpit while you are standing upright. Use your hands -- not your armpits -- to support your weight. To get into a chair, support yourself with one crutch on the injured side. Hold the chair with the other hand, then lower yourself while putting all your weight on the good leg. Going up stairs is `good leg up, step up, then bring up crutches and bad leg.' Down stairs is `bad leg and crutches down, then bring good leg down.' If you develop numbness or swelling in an arm or hand, you are using the crutches incorrectly. Return if you are having any problems with the crutches. ICE & ELEVATION: Apply ice packs frequently against the painful area. Many different schedules are recommended, such as "20 minutes on, 20 minutes off" or "one hour ice, two hours rest." If you need to work, you may need to go longer between ice treatments. You should plan to have the area ice packed AT LEAST one-fourth of the time. The ice should be applied over the wrap, tape, or splint, or over a layer of cloth -- not directly against the skin. Some ice bags have a built-in cloth and can be put directly on the skin. Your injured part should be elevated as much as possible over the next 48 hours. Try to keep the injury above the level of the heart. Avoid use of the injured area. Elevation and rest will decrease the swelling. USE OF IZPX-UAK-SREOWNY IBUPROFEN: Ibuprofen (Advil, Nuprin, Medipren, Motrin IB) is a medication for fever and pain control. In addition, it has anti- inflammatory effects which may be beneficial, especially in the treatment of injuries. It's best to take ibuprofen with food. Persons with ulcer disease or al lergy to aspirin should notify their physician of this before taking ibuprofen. Ibuprofen can be given every four to six hours, for a total of four doses daily. Age Pain or fever dose Antiinflammatory dose 6-8 yr 200 mg (1 tab) 200 mg (1 tab) 9-11 yr 200 mg (1 tab) 200-400 mg (1-2 tab) 11-14 yr 200-400 mg (1-2 tab) 400 mg (2 tab) 15-adult 400 mg (2 tab) 600 mg (3 tab) FOLLOW-UP CARE: If you have been referred to a physician for follow-up care, call the physicians office for an appointment as you were instructed or within the next two days. If you experience worsening or a significant change in your symptoms, notify the physician immediately or return to the Emergency Department at any time for re-evaluation. Forms: Elevated Blood Pressure Referrals: [facility] [Provider Group] - Follow up as needed
--- NOTE | 2020-01-11 13:22 | RADIOLOGY REPORT (SQ) ---
EXAM DESCRIPTION: KNEE RIGHT 4 VIEWS IMAGES COMPLETED DATE/TIME: 01/11/2020 1:14 pm REASON FOR STUDY: pain since am no injury COMPARISON: 11/01/2018 NUMBER OF VIEWS: Four views. TECHNIQUE: AP, lateral, and both oblique radiographic images acquired of the right knee. LIMITATIONS: None. FINDINGS: MINERALIZATION: Normal. BONES: No acute fracture or dislocation. No worrisome bone lesions. JOINT: Joint effusion. SOFT TISSUES: No soft tissue swelling. No radio-opaque foreign body. OTHER: Obesity. IMPRESSION: Mild joint effusion without evidence of acute bony abnormality. TECHNICAL DOCUMENTATION: JOB ID: [id number] 2010 [employer]- All Rights Reserved Reading location - IP/workstation name: [email or web address]
[2020-01-11] MEDS ORDERED: IBUPROFEN 800 MG TABLET PO ONE (13:46)
[2020-01-11 14:14] VITALS: BP 126/88
== END 2020-01-11 14:06 | disposition home or self-care (01) ==
LOC: ER 12:08
DX: M25.461 Effusion, right knee (principal); M25.561 Pain in right knee; J45.909 Unspecified asthma, uncomplicated; I10 Essential (primary) hypertension; K21.9 Gastro-esophageal reflux disease without esophagitis; Z79.899 Other long term (current) drug therapy; Z91.018 Allergy to other foods
CPT/HCPCS: 99283; 73564; J3490

== ENCOUNTER 2020-02-27 15:49 | Emergency (ER) | payer MEDICAID ==
[2020-02-27 17:27] VITALS: BP 120/83
--- NOTE | 2020-02-27 18:21 | RADIOLOGY REPORT (SQ) ---
EXAM DESCRIPTION: CHEST SINGLE VIEW IMAGES COMPLETED DATE/TIME: 02/27/2020 6:11 pm REASON FOR STUDY: shortness of breath COMPARISON: 12/26/2019 EXAM PARAMETERS: NUMBER OF VIEWS: One view. TECHNIQUE: Single frontal radiographic view of the chest acquired. RADIATION DOSE: NA LIMITATIONS: None. FINDINGS: LUNGS AND PLEURA: No opacities, masses or pneumothorax. No pleural effusion. MEDIASTINUM AND HILAR STRUCTURES: No masses. Contour normal. HEART AND VASCULAR STRUCTURES: Heart normal in size. Normal vasculature. BONES: No acute findings. HARDWARE: None in the chest. OTHER: No other significant finding. IMPRESSION: 1. No significant interval changes since the prior examination dated 12/26/2019. No acu te findings. TECHNICAL DOCUMENTATION: JOB ID: [id number] 2010 [employer]- All Rights Reserved Reading location - IP/workstation name: [email or web address]
--- NOTE | 2020-02-27 18:32 | EKG REPORT ---
SEVERITY:- NORMAL ECG - SINUS RHYTHM : Confirmed by: Nasim Taveras MD 27-Feb-2020 18:31:38
[2020-02-27] MEDS ORDERED: IPRATROPIUM/ALBUTEROL 0.5-2.5 MG/3 ML AMPUL NEB ONE (19:09)
[2020-02-27] MEDS ORDERED: PREDNISONE 20 MG TABLET PO ONE (19:09)
--- NOTE | 2020-02-27 20:30 | ER Document Report ---
ED General - General Chief Complaint: Shortness Of Breath Stated Complaint: RESPIRATORY ISSUES Time Seen by Provider: 02/27/20 18:37 Mode of Arrival: Ambulatory Information source: Patient TRAVEL OUTSIDE OF THE [place] IN LAST 30 DAYS: No - HPI Onset: Other - over the last few weeks Onset/Duration: Gradual Quality of pain: No pain Associated symptoms: Nonproductive cough, Shortness of breath, Other - Wheezing Exacerbated by: Other - Exertion Relieved by: Denies Similar symptoms previously: Yes - with prior asthma attacks Recently seen / treated by doctor: No Notes: 44 year old female with a history of Asthma, GERD, HTN here in the ER for several weeks of shortness of breath, wheezing, and a nonproductive cough. The patient says this feels like an asthma attack to her. The patient denies fevers, chills, sweats, nausea, vomiting, chest pain, sick contacts, recent travel. - Related Data Allergies/Adverse Reactions: vinagar Allergy (Uncoded 01/11/20 12:42) Hives Home Medications: meds for HTN, acid reflux, asthma Past Medical History - General Information source: Patient - Social History Smoking Status: Former Smoker Frequency of alcohol use: None Drug Abuse: None Family History: Reviewed & Not Pertinent, Hypertension Patient has suicidal ideation: No Patient has homicidal ideation: No - Past Medical History Cardiac Medical History: Reports: Hx Hypertension Pulmonary Medical History: Reports: Hx Asthma, Hx Bronchitis, Hx Pneumonia Renal/ Medical History: Denies: Hx Peritoneal Dialysis GI Medical History: Reports: Hx Gastroesophageal Reflux Disease Psychiatric Medical History: Reports: Hx Anxiety, Hx Depression Past Surgical History: Reports: Hx Appendectomy, Hx Section - X2, Hx Hysterectomy, Hx Tubal Ligation - Immunizations Immunizations up to date: Yes Hx Diphtheria, Pertussis, Tetanus Vaccination: Yes Hx Pneumococcal Vaccination: 09/12/15 Review of Systems - Review of Systems Constitutional: No symptoms reported EENT: No symptoms reported Cardiovascular: No symptoms reported Respiratory: Cough, Short of breath, Wheezing Gastrointestinal: No symptoms reported Genitourinary: No symptoms reported Female Genitourinary: No symptoms reported Musculoskeletal: No symptoms reported Skin: No symptoms reported Hematologic/Lymphatic: No symptoms reported Neurological/Psychological: No symptoms reported -: Yes All other systems reviewed and negative Physical Exam - Vital signs Vitals: Temp Pulse Resp BP Pulse Ox 98.7 F 67 20 120/83 97 02/27/20 17:24 02/27/20 17:24 02/27/20 17:24 02/27/20 17:24 02/27/20 17:24 - Notes Notes: GENERAL: Well-appearing, well-nourished and in no acute distress. HEAD: Atraumatic, normocephalic. EYES: Pupils equal round and reactive to light, extraocular movements intact, sclera anicteric, conjunctiva are normal. ENT: External ears normal, nares patent, oropharynx clear without exudates. Moist mucous membranes. NECK: Normal range of motion, supple without lymphadenopathy or JVD. LUNGS: Breath sounds clear to auscultation bilaterally and equal. No wheezes rales or rhonchi. HEART: Regular rate and rhythm without murmurs, rubs or gallops. ABDOMEN: Soft, nontender, normoactive bowel sounds. No guarding, no rebound. No masses appreciated. EXTREMITIES: Normal range of motion, no pitting or edema. No clubbing or cyanosis. NEUROLOGICAL: Cranial nerves II through XII grossly intact. Normal speech, normal gait. PSYCH: Normal mood, normal affect. SKIN: Warm, Dry, normal turgor, no rashes or lesions noted. Course - Re-evaluation Re-evalutation: 02/27/20 20:57 The patient is here for an asthma attack. She was treated with prednisone and duoneb while in the ER and her wheezing dramatically improved. The patient only had mild end expiratory wheezing at the time of discharge. Patient prescribed a course of prednisone, Duonebs, and Albuterol rescue inhaler at discharge. - Vital Signs Vital signs: Temp Pulse Resp BP Pulse Ox 98.7 F 67 20 120/83 97 02/27/20 17:37 02/27/20 17:24 02/27/20 17:24 02/27/20 17:24 02/27/20 17:24 - Diagnostic Test Radiology reviewed: Image reviewed, Reports reviewed Discharge - Discharge Clinical Impression: Asthma Qualifiers: Asthma severity: moderate Asthma persistence: unspecified Asthma complication type: with acute exacerbation Qualified Code(s): J45.901 - Unspecified asthma with (acute) exacerbation Condition: Stable Disposition: HOME, SELF-CARE Instructions: Asthma ([facility]) Additional Instructions: Take prednisone as prescribed. Use Duonebs as needed for wheezing and shortness of breath. Follow up with your primary care doctor. If you dont have a primary care doctor, follow up with one of the doctors listed in your discharge paperwork. Prescriptions: Prednisone [Deltasone 20 mg Tablet] 60 mg PO DAILY 4 Days #12 tablet Ipratropium/Albuterol Sulfate [Duoneb 3 ml Ampul] 3 ml NEB NOW #1 vial.neb Albuterol Sulfate [Proair Digihaler] 90 mcg IH Q4H #1 aer.pw.bas Referrals: RICO MCKAY MD [ACTIVE STAFF] - Follow up as needed BEAN VILLANUEVA MD [ACTIVE STAFF] - Follow up as needed
== END 2020-02-27 21:29 | disposition home or self-care (01) ==
LOC: ER 15:49
DX: J45.901 Unspecified asthma with (acute) exacerbation (principal); R05 Cough; R06.02 Shortness of breath; I10 Essential (primary) hypertension; Z79.899 Other long term (current) drug therapy; Z87.891 Personal history of nicotine dependence; Z87.01 Personal history of pneumonia (recurrent); Z91.018 Allergy to other foods
CPT/HCPCS: 93005; 94640; 99285; 71045; 93010; J7512; J7620

== ENCOUNTER 2020-03-08 19:31 | Emergency (ER) | payer MEDICAID ==
[2020-03-08] MEDS ORDERED: IPRATROPIUM/ALBUTEROL 0.5-2.5 MG/3 ML AMPUL NEB ONE ×2 (20:40)
[2020-03-08] MEDS ORDERED: PREDNISONE 20 MG TABLET PO ONE (20:40)
[2020-03-08] MEDS ORDERED: ALBUTEROL SULFATE 0.083% NEB 2.5 MG/3 ML AMPUL NEB ONE (20:40)
--- NOTE | 2020-03-08 20:46 | ER Document Report ---
ED Respiratory Problem - General Chief Complaint: Shortness Of Breath Stated Complaint: SHORTNESS OF BREATH Time Seen by Provider: 03/08/20 20:20 Mode of Arrival: Ambulatory Information source: Patient Notes: 44-year-old female presented to ED for complaint of shortness of breath. She does have a long-term history of asthma. She states she was seen last week was diagnosed with exacerbation of asthma. She states she was prescribed some steroids she took them and felt better until a couple days ago when she was off of the prednisone and then she started having the shortness of breath again. She states she does have a primary doctor but always he puts on his nebulizers and short-arm inhalers he does not have her on any long-term asthma medication. TRAVEL OUTSIDE OF THE [place] IN LAST 30 DAYS: No - HPI Patient complains to provider of: Asthma, Cough, Short of breath Onset: Other - 2 DAYS Duration: Worse/persistent Quality of pain: No pain Pain Level: Denies Context: Hx asthma Short of Breath: Mild Cough: Nonproductive Sputum amount: None EMS treatments: Bronchodilators Associated symptoms: Short of breath, Wheezing Similar symptoms previously: Yes Recently seen / treated by doctor: Yes - Related Data Allergies/Adverse Reactions: vinagar Allergy (Uncoded 01/11/20 12:42) Hives Past Medical History - General Information source: Patient - Social History Smoking Status: Former Smoker Frequency of alcohol use: None Drug Abuse: None Lives with: Family Family History: Reviewed & Not Pertinent, Hypertension Patient has homicidal ideation: No - Past Medical History Cardiac Medical History: Reports: Hx Hypertension Pulmonary Medical History: Reports: Hx Asthma, Hx Bronchitis, Hx Pneumonia EENT Medical History: Reports: None Neurological Medical History: Reports: None Endocrine Medical History: Reports: None Renal/ Medical History: Reports: None GI Medical History: Reports: Hx Gastroesophageal Reflux Disease Musculoskeletal Medical History: Reports None Skin Medical History: Reports None Psychiatric Medical History: Reports: Hx Anxiety, Hx Depression Traumatic Medical History: Reports: None Surgical Hx: Negative Past Surgical History: Reports: None, Hx Appendectomy, Hx Section - X2, Hx Hysterectomy, Hx Tubal Ligation - Immunizations Immunizations up to date: Yes Hx Diphtheria, Pertussis, Tetanus Vaccination: Yes Hx Pneumococcal Vaccination: 09/12/15 Review of Systems - Review of Systems Constitutional: No symptoms reported EENT: No symptoms reported Cardiovascular: No symptoms reported Respiratory: Short of breath, Wheezing Gastrointestinal: No symptoms reported Genitourinary: No symptoms reported Female Genitourinary: No symptoms reported Musculoskeletal: No symptoms reported Skin: No symptoms reported Hematologic/Lymphatic: No symptoms reported Neurological/Psychological: No symptoms reported -: Yes All other systems reviewed and negative Physical Exam - Vital signs Vitals: Temp Pulse Resp BP Pulse Ox 98.8 F 82 18 118/63 97 03/08/20 20:05 03/08/20 20:05 03/08/20 20:05 03/08/20 20:05 03/08/20 20:05 Interpretation: Normal - General General appearance: Appears well, Alert - HEENT Head: Normocephalic, Atraumatic Eyes: Normal Pupils: PERRL - Respiratory Respiratory status: No respiratory distress Chest status: Nontender Breath sounds: Normal, Nonproductive cough, Wheezing Chest palpation: Normal - Cardiovascular Rhythm: Regular Heart sounds: Normal auscultation Murmur: No - Abdominal Inspection: Normal Distension: No distension Bowel sounds: Normal Tenderness: Nontender Organomegaly: No organomegaly - Back Back: Normal, Nontender - Extremities General upper extremity: Normal inspection, Nontender, Normal color, Normal ROM, Normal temperature General lower extremity: Normal inspection, Nontender, Normal color, Normal ROM, Normal temperature, Normal weight bearing. No: Nichelle's sign - Neurological Neuro grossly intact: Yes Cognition: Normal Orientation: AAOx4 [place] Coma Scale Eye Opening: Spontaneous Valery Coma Scale Verbal: Oriented [place] Coma Scale Motor: Obeys Commands Valery Coma Scale Total: 15 Speech: Normal Motor strength normal: LUE, RUE, LLE, RLE Sensory: Normal - Psychological Associated symptoms: Normal affect, Normal mood - Skin Skin Temperature: Warm Skin Moisture: Dry Skin Color: Normal Course - Re-evaluation Re-evalutation: 03/08/20 23:04 Chest x-ray negative. Patient states she feels much better after getting nebulizer treatments and steroids. She does have a urinary tract infection which she is getting a gram of Rocephin during her stay and then discharged home with Keflex. She is to follow-up with her primary care doctor on Tuesday. She has verbalized agreement with this plan. I will send her home with 3 days of steroids and she is to see the doctor before these run out. - Vital Signs Vital signs: Temp Pulse Resp BP Pulse Ox 97.9 F 73 16 123/87 H 98 03/08/20 23:28 03/08/20 23:28 03/08/20 23:28 03/08/20 23:28 03/08/20 23:28 - Laboratory Result Diagrams: 03/08/20 20:25 03/08/20 20:25 Laboratory results interpreted by me: 03/08/20 03/08/20 03/08/20 20:25 20:25 20:25 WBC 11.8 H Eos % (Auto) 9.1 H Absolute Eos (auto) 1.1 H Sodium 135.6 L Anion Gap 3 L Est GFR (MDRD) Non-Af 56 L Total Protein 5.8 L Albumin 3.2 L Urine Nitrite POSITIVE H Ur Leukocyte Esterase MODERATE H - Diagnostic Test Radiology reviewed: Image reviewed, Reports reviewed Discharge - Discharge Clinical Impression: Asthma exacerbation Qualifiers: Asthma severity: mild Asthma persistence: intermittent Qualified Code(s): J45.21 - Mild intermittent asthma with (acute) exacerbation UTI (urinary tract infection) Qualifiers: Urinary tract infection type: site unspecified Hematuria presence: without hematuria Qualified Code(s): N39.0 - Urinary tract infection, site not specified Condition: Stable Disposition: HOME, SELF-CARE Additional Instructions: URINARY TRACT INFECTION: Your evaluation indicates that you have a urinary tract infection. This is due to germs growing in the bladder. This is a common problem. This infection usually responds quickly to antibiotics. Your antibiotic should be taken exactly as prescribed. Drink plenty of fluids -- three to four quarts a day. Occasionally, a bladder anesthetic will be prescribed to help stop the feeling of urgency until the antibiotic has a chance to clear the infection. This may cause your urine to be dark orange. Certain urine infections require a culture. If the doctor obtained a culture, the results will be back in two days. You should call to see if a change in treatment is needed. A repeat urinalysis after you finish treatment is often recommended. The physician will let you know if further testing is required. Call the doctor if you develop fever, chills, flank pain, inability to urin ate, or blood in the urine. ASTHMA: You have been diagnosed as having asthma. This is a condition where there is episodic tightness in the bronchial tubes. Allergies, infections, and polluted or cold air may be contributing factors. Emergency treatment of a severe asthma attack may include adrenaline shots, or bronchodilator aerosol. You may feel lightheaded, have a decreased exercise tolerance and a rapid pulse for an hour or two. Rest and get plenty of fluids. Home treatment of asthma requires bronchodilator drugs. These can be administered by injection, inhalation, or by mouth. Antibiotics and corticosteroids may be required for some patients. You should avoid chemical fumes, dusts, pollens, and exercising in very cold or dry air. If you smoke, stop!! If you develop a fever, increased wheezing, chest pain, or severe shortness of breath, you should contact the doctor immediately. STEROID MEDICATION: You have been given an injection of or oral medicine of the cortisone/steroid class. This medication is used to control inflammation or allergy. Stevenson t is usually only given for a short period of time, until the acute process subsides. There are usually no side effects from short-term use of cortisone-like medications. Some persons feel an increased sense of well-being and are not sleepy at bedtime. Long-term use of cortisone medications is best avoided, unless required for a severe condition. If your condition does not remit, or relapses after the course of corticosteroid medication, you should consult your physician. INHALED BRONCHODILATORS: You have received treatment(s) of and/or prescription for an inhaled bronchodilator -- a medication which stimulates the airways in the lung to dilate. This improves the flow of air in asthma, bronchitis, and emphysema. These medicines have some similarity to adrenaline, and can cause similar side effects: shakiness, racing heart, and a sense of nervousness. These side effects decrease with time. Contact your doctor if these side effects are severe. Do not over-use the medicine. Too-frequent use of the inhaler may make it ineffective. Call your doctor if the inhaler is not controlling your symptoms at the prescribed doses. USE OF ACETAMINOPHEN (Tylenol): Acetaminophen may be taken for pain relief or fever control. It's much safer than aspirin, offering a wider range of "safe" dosages. It is safe during . Some brand names are Tylenol, Panadol, Datril, Anacin 3, Tempra, and Liquiprin. Acetaminophen can be repeated every four hours. The following are maximum recommended dosages: WEIGHT Dose Drops Elixir Chewable(80mg) (LBS.) drprs=droppers tsp=teaspoon 6 40 mg 0.4 ml (1/2) 6-11 80 mg 0.8 ml (full) tsp 1 tab 12-16 120 mg 1 1/2 drprs 3/4 tsp 1 1/2 tabs 17-23 160 mg 2 drprs 1 tsp 2 tabs 24-30 240 mg 3 drprs 1 1/2 tsp 3 tabs 30-35 320 mg 2 tsp 4 tabs 36-41 360 mg 2 1/4 tsp 4 1/2 tabs 42-47 400 mg 2 1/2 tsp 5 tabs 48-53 480 mg 3 tsp 6 tabs 54-59 520 mg 3 1/4 tsp 6 1/2 tabs 60-64 560 mg 3 1/2 tsp 7 tabs 65-70 600 mg 3 3/4 tsp 7 1/2 tabs 71-76 640 mg 4 tsp 8 tabs 77-82 720 mg 4 1/2 tsp 9 tabs 83-88 800 mg 5 tsp 10 tabs >89 pounds or adults 650 mg to 900 mg Acetaminophen can be repeated every four hours. Maximum dose not to exceed 4000 mg a day. These maximum recommended dosages are slightly higher than the dosages written on the product container, but these dosages are very safe and below the toxic dosage for acetaminophen. CEPHALEXIN: The antibiotic you've been prescribed is a member of the cephalosporin class. This type of antibiotic covers a wide variety of infections, including those of the skin, lungs, and urinary tract. It's useful for staph infections. This antibiotic is slightly similar to the penicillin family. In rare cases, a person who is allergic to penicillin will also be allergic to this medication. If you have had a severe allergic reaction to penicillin, and have not taken this antibiotic since that time, notify your doctor. Antibiotics which cover many germs ("broad spectrum" antibiotics) are more likely to cause diarrhea or "yeast" infections. Women prone to vaginal yeast problems may suffer an attack after taking this antibiotic. In infants, oral thrush (white spots "stuck" on the cheek) or yeast diaper rash may result. See your doctor if these problems occur. Call at once if you develop itching, hives, shortness of breath, or lightheadedness. FOLLOW-UP CARE: If you have been referred to a physician for follow-up care, call the physicians office for an appointment as you were instructed or within the next two days. If you experience worsening or a significant change in your symptoms, notify the physician immediately or return to the Emergency Department at any time for re-evaluation. Prescriptions: Prednisone [Deltasone 20 mg Tablet] 2 tab PO DAILY 3 Days #6 tablet Cephalexin Monohydrate [Keflex 500 mg Capsule] 500 mg PO Q6H 5 Days #20 capsule
[2020-03-08] MEDS ORDERED: NORMAL SALINE 1000 ML 1,000 ML IV ONE (20:47)
[2020-03-08 20:50] LABS: ABSOLUTE BASOPHILS # (AUTO) 0.1 10^3/uL (0.0-0.2); ABSOLUTE EOSINOPHILS # (AUTO) 1.1 10^3/uL (0.0-0.6); ABSOLUTE LYMPHOCYTES (AUTO) 2.5 10^3/uL (0.5-4.7); ABSOLUTE MONOCYTES (AUTO) 0.8 10^3/uL (0.1-1.4); ABSOLUTE NEUT (AUTO) 7.3 10^3/uL (1.7-8.2); BASOPHILS % (AUTO) 0.6 % (0-2); EOSINOPHILS % (AUTO) 9.1 % (0-6); HEMATOCRIT 42.5 % (36.0-47.0); HEMOGLOBIN 14.2 g/dL (12.0-15.5); LYMPHOCYTES % (AUTO) 21.6 % (13-45); MEAN CORPUSCULAR HGB CONC 33.4 g/dL (32.0-36.0); MEAN CORPUSCULAR VOLUME 84 fl (80-97); MONOCYTES % (AUTO) 6.8 % (3-13); PLATELET COUNT 361 10^3/uL (150-450); RED BLOOD COUNT 5.06 10^6/uL (3.72-5.28); RED CELL DISTRIBUTION WIDTH 13.7 % (11.5-14.0); SEGMENTED NEUTROPHILS % (AUTO) 61.9 % (42-78); TOTAL CELLS COUNTED % (AUTO) 100 %; WHITE BLOOD COUNT 11.8 10^3/uL (4.0-10.5)
[2020-03-08 21:08] LABS: ALBUMIN 3.2 g/dL (3.5-5.0); ALKALINE PHOSPHATASE 42 U/L (38-126); ASPARTATE AMINO TRANSFERASE 15 U/L (14-36); BILIRUBIN,TOTAL 0.3 mg/dL (0.2-1.3); BLOOD UREA NITROGEN 9 mg/dL (7-20); CALCIUM 8.7 mg/dL (8.4-10.2); GLUCOSE 90 mg/dL (75-110); POTASSIUM 3.9 mmol/L (3.6-5.0); TOTAL PROTEIN 5.8 g/dL (6.3-8.2)
--- NOTE | 2020-03-08 21:08 | RADIOLOGY REPORT (SQ) ---
XR CHEST 1 VIEW CLINICAL STATEMENT: sob COMPARISON: 02/27/2020 FINDINGS: Cardiomediastinal silhouette is within normal limits. There is no focal lung consolidation or pleural effusion. No evidence of pulmonary edema or pneumothorax. IMPRESSION: No acute cardiopulmonary disease.
[2020-03-08 21:09] LABS: APPEARANCE,URINE CLOUDY; BILIRUBIN,URINE NEGATIVE (NEGATIVE); COLOR,URINE YELLOW; GLUCOSE, URINE NEGATIVE (NEGATIVE); KETONES,URINE NEGATIVE (NEGATIVE); LEUKOCYTE ESTERASE,URINE MODERATE (NEGATIVE); NITRITE,URINE POSITIVE (NEGATIVE); PROTEIN,URINE NEGATIVE (NEGATIVE); URINE SPECIFIC GRAVITY 1.026; UROBILINOGEN,URINE NEGATIVE mg/dL (<2.0)
[2020-03-08 21:13] LABS: CARBON DIOXIDE 28 mmol/L (22-30); CHLORIDE 105 mmol/L (98-107)
[2020-03-08 21:15] LABS: ANION GAP 3 (5-19)
[2020-03-08] MEDS ORDERED: CEFTRIAXONE 1 GM/D5W RTU 1 GM/50 ML RTUPB IV ONE (22:37)
[2020-03-08 23:29] VITALS: BP 123/87
== END 2020-03-08 23:29 | disposition home or self-care (01) ==
LOC: ER 19:31
DX: J45.21 Mild intermittent asthma with (acute) exacerbation (principal); N39.0 Urinary tract infection, site not specified; R06.02 Shortness of breath; R05 Cough; I10 Essential (primary) hypertension; Z87.891 Personal history of nicotine dependence; Z87.01 Personal history of pneumonia (recurrent); Z91.018 Allergy to other foods
CPT/HCPCS: 94640 ×2; 99285; 96361; 96374; 36415; 85025; 80053; 81001; 71045; J7512; J7030; J0696; J7620

== ENCOUNTER 2020-04-06 21:35 | Emergency (ER) | payer MEDICAID ==
[2020-04-06 21:51] VITALS: BP 134/81
[2020-04-06] MEDS ORDERED: IPRATROPIUM/ALBUTEROL 0.5-2.5 MG/3 ML AMPUL NEB ONE (22:10)
--- NOTE | 2020-04-06 22:12 | ER Document Report ---
ED Respiratory Problem - General Chief Complaint: Breathing Difficulty Stated Complaint: DIFFICULTY BREATHING Time Seen by Provider: 04/06/20 21:56 Notes: Patient is a 44-year-old female with a history of asthma that comes emergency department for chief complaint of 3 days of worsening wheezing, cough, shortness of breath. She denies fever/chills, nausea/vomiting, chest pain, or any other complaints. She denies smoking. She states she ran out of 1 of her nebulizer medications although she cannot recall the name of this. She came by EMS, received 1 DuoNeb, she states after that she already feels much better. Initial oxygen saturation on room air was 94%, after 1 treatment it was 99%. Patient is afebrile on evaluation. Remaining medical history includes hypertension, anxiety/depression, obesity, tubal ligation. TRAVEL OUTSIDE OF THE [place] IN LAST 30 DAYS: No - Related Data Allergies/Adverse Reactions: vinagar Allergy (Uncoded 01/11/20 12:42) Hives Past Medical History - General Information source: Patient - Social History Smoking Status: Never Smoker Frequency of alcohol use: None Drug Abuse: None Lives with: Family Family History: Reviewed & Not Pertinent, Hypertension - Past Medical History Cardiac Medical History: Reports: Hx Hypertension Pulmonary Medical History: Reports: Hx Asthma, Hx Bronchitis, Hx Pneumonia Renal/ Medical History: Denies: Hx Peritoneal Dialysis GI Medical History: Reports: Hx Gastroesophageal Reflux Disease Psychiatric Medical History: Reports: Hx Anxiety, Hx Depression Past Surgical History: Reports: Hx Appendectomy, Hx Section - X2, Hx Hysterectomy, Hx Tubal Ligation - Immunizations Immunizations up to date: Yes Hx Diphtheria, Pertussis, Tetanus Vaccination: Yes Hx Pneumococcal Vaccination: 09/12/15 Review of Systems - Review of Systems Constitutional: No symptoms reported EENT: No symptoms reported Cardiovascular: No symptoms reported Respiratory: See HPI Gastrointestinal: No symptoms reported Genitourinary: No symptoms reported Female Genitourinary: No symptoms reported Musculoskeletal: No symptoms reported Skin: No symptoms reported Hematologic/Lymphatic: No symptoms reported Neurological/Psychological: No symptoms reported Physical Exam - Vital signs Vitals: Temp Pulse Resp BP Pulse Ox 98.6 F 102 H 20 134/81 H 97 04/06/20 21:48 04/06/20 21:48 04/06/20 21:48 04/06/20 21:48 04/06/20 21:48 - Notes Notes: GENERAL: Alert, interacts well. No acute distress. Talkative and well-appearing HEAD: Normocephalic, atraumatic. EYES: Pupils equal, round, and reactive to light. Extraocular movements intact. ENT: Oral mucosa moist, tongue midline. Oropharynx unremarkable. Airway patent. NECK: Full range of motion. Supple. Trachea midline. No lymphadenopathy. LUNGS: Scattered expiratory wheezes and occasional cough. No rales or rhonchi. No respiratory distress. Speaks in full sentences. HEART: Regular rate and rhythm. No murmur ABDOMEN: Soft, non-tender. Non-distended. EXTREMITIES: Moves all 4 extremities spontaneously. No edema, normal radial and dorsalis pedis pulses bilaterally. No cyanosis. BACK: no cervical, thoracic, lumbar midline tenderness. No saddle anesthesia, normal distal neurovascular exam. Moves all extremities in full range of motion. NEUROLOGICAL: Alert and oriented x3. Normal speech. Cranial nerves II through XII grossly intact. Strength 5/5 in all extremities. PSYCH: Normal affect, normal mood. SKIN: Warm, dry, normal turgor. No rashes or lesions noted. Course - Re-evaluation Re-evalutation: After DuoNeb's wheezing resolved, patient has no complaints. Chest x-ray is negative. Patient was COVID-19 tested because of her productive cough and asthma history. She is not hypoxic, febrile, or tachycardic on reexamination. Discussed options. Patient will be given prescription for her nebulizer refill, given steroids, given inhaler and spacer. Discussed follow-up and return precautions. Patient states appreciation and agreement. Stable and well- appearing at time of discharge. - Vital Signs Vital signs: Temp Pulse Resp BP Pulse Ox 98.6 F 102 H 20 134/81 H 94 04/06/20 21:48 04/06/20 21:48 04/06/20 21:48 04/06/20 21:48 04/07/20 00:10 Discharge - Discharge Clinical Impression: Productive cough Asthma exacerbation Qualifiers: Asthma severity: moderate Asthma persistence: unspecified Qualified Code(s): J45.901 - Unspecified asthma with (acute) exacerbation Condition: Stable Disposition: HOME, SELF-CARE Additional Instructions: Your chest x-ray appears normal. Your evaluation is consistent with an asthma exacerbation. Use the albuterol inhaler and nebulizer if needed, take the prednisone as prescribed, follow-up with primary care for additional management. You have been tested for COVID-19 and you will be contacted with results, recommendation is to quarantine until you hear your results in the next few days. Follow additional instructions below. Return if you worsen including difficulty breathing, spiking fever, or any other concerning or worsening symptoms. As a person under investigation for COVID-19, the [facility] (division on public health) advises you to adhere to the following guidance until your test results are reported to you. If your test result is positive, you will receive additional information from your provider and your local health department at that time. Remain at home until you are cleared by the health provider or public health authorities. Keep a log of visitors to your home, notify any visitors to your home of your isolation status. If you plan to move to a new address or leave the formerly [facility], notify the local health department in your County. Call your Doctor or seek care if you have an urgent medical need. Before seeking medical care, call him to get instructions from the provider before arriving at the medical office, clinic, or hospital. Notify them that you are being tested for the virus (COVID-19) so that arrangements can be made, as necessary, to prevent transmission to others in the healthcare setting. Next, notify the local health department in your formerly [facility]. If a medical emergency arises and you need to call 911, inform the first responders that you are being tested for the virus that causes COVID-19. Next, notify the local health department in your county. Prescriptions: Ipratropium/Albuterol Sulfate [Duoneb 3 ml Ampul] 3 ml NEB Q4HP PRN #30 [email or web address] PRN Reason: Prednisone [Deltasone 20 mg Tablet] 3 tab PO DAILY 5 Days #15 tablet Albuterol Sulfate [Proair HFA Inhalation Aerosol 8.5 gm MDI] 2 puff IH Q4H PRN #1 mdi PRN Reason:
--- NOTE | 2020-04-06 22:39 | RADIOLOGY REPORT (SQ) ---
EXAM DESCRIPTION: XR CHEST 1 VIEW COMPLETED DATE/TME: 04/06/2020 22:10 CLINICAL HISTORY: 44 years, Female, productive cough COMPARISON: Multiple priors, most recent from 03/08/2020 NUMBER OF VIEWS: One TECHNIQUE: Single frontal view of the chest was obtained portably LIMITATIONS: None. FINDINGS: Cardiac and mediastinal contours are stable. Lungs are clear. No pleural effusion or pneumothorax. IMPRESSION: No acute disease. copyright 2010 [employer]- All Rights Reserved
[2020-04-06] MEDS ORDERED: ALBUTEROL SULFATE HFA (90 MCG/PUFF) 8 GM MDI IH ONE (23:34)
[2020-04-06] MEDS ORDERED: METHYLPREDNISOLONE INJ 125 MG/2 ML SDV IM ONE (23:35)
== END 2020-04-07 00:10 | disposition home or self-care (01) ==
LOC: ER 21:35
DX: Z20.828 Contact with and (suspected) exposure to other viral communicable diseases (principal); R06.9 Unspecified abnormalities of breathing; R05 Cough; R06.02 Shortness of breath
CPT/HCPCS: 94640; 99285; 96372; 87635; 71045; J2930; J3490; C9803

== ENCOUNTER 2020-04-27 21:10 | Emergency (ER) | payer MEDICAID ==
[2020-04-27 21:54] VITALS: BP 129/83
[2020-04-28] MEDS ORDERED: PREDNISONE 20 MG TABLET PO ONE (01:44)
--- NOTE | 2020-04-28 01:47 | ER Document Report ---
ED Respiratory Problem - General Chief Complaint: Shortness Of Breath Stated Complaint: SHORTNESS OF BREATH,FEVER,WEAKNESS Time Seen by Provider: 04/28/20 01:33 Notes: CHIEF COMPLAINT: Shortness of breath for 4 days HPI: 45-year-old female with asthma history presenting to the emergency department by EMS for evaluation of shortness of breath over the last 4 days. States she was told by EMS that she had a low-grade fever tonight. She is not concerned about COVID. Patient states that her shortness of breath feels like her asthma. She has been using her albuterol inhaler every 4 hours. States she was unable to reach her PCP for further evaluation in the office this week. No chest pain. ROS: See HPI - all other systems were reviewed and are otherwise negative Constitutional: Subjective low-grade fever Eyes: no drainage, no blurred vision ENT: no runny nose, no sore throat Cardiovascular: no chest pain Resp: + SOB, + cough GI: no vomiting, no diarrhea, no abdominal pain : no dysuria Integumentary: no rash Allergy: no hives Musculoskeletal: no extremity pain or swelling Neurological: no numbness/tingling, no weakness MEDICATIONS: I agree with the patient medications as charted by the RN. ALLERGIES: I agree with the allergies as charted by the RN. PAST MEDICAL HISTORY/PAST SURGICAL HISTORY: Reviewed and agree as charted by RN. SOCIAL HISTORY: Reviewed and agree as charted by RN. FAMILY HISTORY: No significant familial comorbid conditions directly related to patient complaint EXAM: Reviewed vital signs as charted by RN. CONSTITUTIONAL: Alert and oriented and responds appropriately to questions. Well-appearing; well-nourished HEAD: Normocephalic; atraumatic EYES: PERRL; Conjunctivae clear, sclerae non-icteric ENT: normal nose; no rhinorrhea; moist mucous membranes; pharynx without lesions noted, no uvula edema or deviation, no tonsillar hypertrophy, phonation normal NECK: Supple without meningismus; non-tender; no cervical lymphadenopathy, no masses CARD: RRR; no murmurs, no clicks, no rubs, no gallops; symmetric distal pulses RESP: Normal chest excursion without splinting or tachypnea; breath sounds clear and equal bilaterally; no wheezes, no rhonchi, no rales, pulse oximetry 94% on room air not hypoxic ABD/GI: Normal bowel sounds; non-distended; soft, non-tender, no rebound, no guarding; no palpable organomegaly or masses. BACK: The back appears normal and is non-tender to palpation, there is no CVA tenderness EXT: Normal ROM in all joints; non-tender to palpation; no cyanosis, no effusions, no edema SKIN: Normal color for age and race; warm; dry; good turgor; no acute lesions n oted NEURO: Moves all extremities equally; Motor and sensory function intact PSYCH: The patient's mood and manner are appropriate. Grooming and personal hygiene are appropriate. MDM: 45-year-old female with asthma history presenting for shortness of breath over the last 4 days similar to prior asthma exacerbations. Was unable to reach her PCP. Lung sounds currently are clear to auscultation patient states she is actually feeling better than when she initially presented. Will give steroids here. Given the possibility of low-grade fever will obtain a chest x-ray to evaluate for infiltrate but if negative anticipate discharge home on steroids with a refill of her albuterol inhaler with instruction to follow-up with her PCP. She declines COVID testing TRAVEL OUTSIDE OF THE [place] IN LAST 30 DAYS: No - Related Data Allergies/Adverse Reactions: vinagar Allergy (Uncoded 01/11/20 12:42) Hives Past Medical History - Social History Smoking Status: Unknown if Ever Smoked Family History: Reviewed & Not Pertinent, Hypertension - Past Medical History Cardiac Medical History: Reports: Hx Hypertension Pulmonary Medical History: Reports: Hx Asthma, Hx Bronchitis, Hx Pneumonia Renal/ Medical History: Denies: Hx Peritoneal Dialysis GI Medical History: Reports: Hx Gastroesophageal Reflux Disease Psychiatric Medical History: Reports: Hx Anxiety, Hx Depression Past Surgical History: Reports: Hx Appendectomy, Hx Section - X2, Hx Hysterectomy, Hx Tubal Ligation - Immunizations Immunizations up to date: Yes Hx Diphtheria, Pertussis, Tetanus Vaccination: Yes Hx Pneumococcal Vaccination: 09/12/15 Physical Exam - Vital signs Vitals: Temp Pulse Resp BP Pulse Ox 98.6 F 99 20 129/83 H 94 04/27/20 21:51 04/27/20 21:51 04/27/20 21:51 04/27/20 21:51 04/27/20 21:51 Course - Re-evaluation Re-evalutation: 04/28/20 01:58 Chest x-ray on my review does not show evidence of infiltrate or pneumothorax. Will discharge home to follow-up with PCP - Vital Signs Vital signs: Temp Pulse Resp BP Pulse Ox 98.6 F 99 20 129/83 H 94 04/27/20 21:51 04/27/20 21:51 04/27/20 21:51 04/27/20 21:51 04/27/20 21:51 Discharge - Discharge Clinical Impression: Asthma exacerbation Qualifiers: Asthma severity: mild Asthma persistence: persistent Qualified Code(s): J45.31 - Mild persistent asthma with (acute) exacerbation Condition: Stable Disposition: HOME, SELF-CARE Instructions: Asthma ([facility]) Additional Instructions: 1. take the medications as prescribed 2. if you were prescribed an Albuterol inhaler, use it as instructed, 2 puffs every 4 hours as needed for cough/wheezing 3. call your primary care provider as soon as possible to schedule recheck appt. in the office. 4. return to the ED for any worsening condition, shortness of breath or continued fever that does not resolve with Motrin/Tylenol Prescriptions: Prednisone [Deltasone 20 mg Tablet] 2 tab PO DAILY 5 Days #10 tablet Albuterol Sulfate [Proair HFA Inhalation Aerosol 8.5 gm MDI] 2 puff IH Q4H PRN #1 mdi PRN Reason:
--- NOTE | 2020-04-28 02:44 | RADIOLOGY REPORT (SQ) ---
CLINICAL INDICATION: sob. TECHNIQUE: A single portable AP view was obtained of the chest at 0201 hours. COMPARISON: April 06, 2020. FINDINGS: The cardiomediastinal silhouette is prominent. The lungs are grossly clear. No evidence of effusion or pneumothorax. The visualized bones are unremarkable. IMPRESSION: No evidence of active intrathoracic disease.
== END 2020-04-28 03:10 | disposition home or self-care (01) ==
LOC: ER 21:10
DX: J45.31 Mild persistent asthma with (acute) exacerbation (principal); R06.02 Shortness of breath; I10 Essential (primary) hypertension; Z87.01 Personal history of pneumonia (recurrent); Z79.899 Other long term (current) drug therapy; Z91.018 Allergy to other foods
CPT/HCPCS: 71045; 99283

== ENCOUNTER 2020-04-29 23:32 | Emergency (ER) | payer MEDICAID ==
[2020-04-30] MEDS ORDERED: NORMAL SALINE 1000 ML 1,000 ML IV ONE (00:22)
--- NOTE | 2020-04-30 00:23 | ER Document Report ---
ED Medical Screen (RME) - General Chief Complaint: Abdominal Pain Stated Complaint: HIP PAIN Time Seen by Provider: 04/30/20 00:21 Mode of Arrival: Wheelchair Notes: Patient presents complaining of right hip pain. Patient states the pain started this evening and radiates to the right flank area and around to right lower side of abdomen. Patient states that occasionally she will feel faint. Patient denies any fever. Patient denies any chest pain symptoms. Patient has a history of hypertension COPD asthma and GERD. Patient denies any previous history of sciatica. I have greeted and performed a rapid initial assessment of this patient. A comprehensive ED assessment and evaluation of the patient, analysis of test results and completion of the medical decision making process will be conducted by additional ED providers. TRAVEL OUTSIDE OF THE [place] IN LAST 30 DAYS: No - Related Data Allergies/Adverse Reactions: vinagar Allergy (Uncoded 01/11/20 12:42) Hives Past Medical History - Past Medical History Cardiac Medical History: Reports: Hx Hypertension Pulmonary Medical History: Reports: Hx Asthma, Hx Bronchitis, Hx Pneumonia Renal/ Medical History: Denies: Hx Peritoneal Dialysis GI Medical History: Reports: Hx Gastroesophageal Reflux Disease Psychiatric Medical History: Reports: Hx Anxiety, Hx Depression Past Surgical History: Reports: Hx Appendectomy, Hx Section - X2, Hx Hysterectomy, Hx Tubal Ligation - Immunizations Immunizations up to date: Yes Hx Diphtheria, Pertussis, Tetanus Vaccination: Yes Physical Exam - Vital signs Vitals: Temp Pulse Resp BP Pulse Ox 99.1 F 110 H 24 H 120/85 95 04/29/20 23:39 04/29/20 23:39 04/29/20 23:39 04/29/20 23:39 04/29/20 23:39 Course - Re-evaluation Re-evalutation: 04/30/20 00:23 Right hip tenderness, no CVA tenderness, patient tachycardic. - Vital Signs Vital signs: Temp Pulse Resp BP Pulse Ox 99.1 F 110 H 24 H 120/85 95 04/29/20 23:39 04/29/20 23:39 04/29/20 23:39 04/29/20 23:39 04/29/20 23:39
[2020-04-30 00:41] LABS: ABSOLUTE LYMPHOCYTES (AUTO) 0.5 10^3/uL (0.5-4.7); ABSOLUTE MONOCYTES (AUTO) 0.1 10^3/uL (0.1-1.4); ABSOLUTE NEUT (AUTO) 7.1 10^3/uL (1.7-8.2); BASOPHILS % (AUTO) 0.3 % (0-2); HEMATOCRIT 44.2 % (36.0-47.0); HEMOGLOBIN 14.5 g/dL (12.0-15.5); LYMPHOCYTES % (AUTO) 6.3 % (13-45); MEAN CORPUSCULAR HEMOGLOBIN 27.6 pg (27.0-33.4); MEAN CORPUSCULAR HGB CONC 32.9 g/dL (32.0-36.0); MEAN CORPUSCULAR VOLUME 84 fl (80-97); MONOCYTES % (AUTO) 1.1 % (3-13); PLATELET COUNT 376 10^3/uL (150-450); RED BLOOD COUNT 5.26 10^6/uL (3.72-5.28); RED CELL DISTRIBUTION WIDTH 13.7 % (11.5-14.0); SEGMENTED NEUTROPHILS % (AUTO) 92.3 % (42-78); TOTAL CELLS COUNTED % (AUTO) 100 %; WHITE BLOOD COUNT 7.7 10^3/uL (4.0-10.5)
[2020-04-30] MEDS ORDERED: HYDROCODONE/ACETAMINOPHEN 5-325 MG TABLET PO ONE (00:46)
[2020-04-30 00:55] LABS: ALBUMIN 4.4 g/dL (3.5-5.0); ALKALINE PHOSPHATASE 62 U/L (38-126); ANION GAP 9 (5-19); ASPARTATE AMINO TRANSFERASE 16 U/L (14-36); BILIRUBIN,TOTAL 0.6 mg/dL (0.2-1.3); BLOOD UREA NITROGEN 11 mg/dL (7-20); CALCIUM 9.7 mg/dL (8.4-10.2); CARBON DIOXIDE 22 mmol/L (22-30); CHLORIDE 106 mmol/L (98-107); GLUCOSE 163 mg/dL (75-110); POTASSIUM 4.6 mmol/L (3.6-5.0)
[2020-04-30 01:20] LABS: APPEARANCE,URINE SLIGHTLY-CLOUDY; BILIRUBIN,URINE NEGATIVE (NEGATIVE); COLOR,URINE AMBER; GLUCOSE, URINE NEGATIVE (NEGATIVE); KETONES,URINE NEGATIVE (NEGATIVE); LEUKOCYTE ESTERASE,URINE TRACE (NEGATIVE); NITRITE,URINE NEGATIVE (NEGATIVE); PROTEIN,URINE 30 mg/dL (NEGATIVE); URINE SPECIFIC GRAVITY 1.046; UROBILINOGEN,URINE NEGATIVE mg/dL (<2.0)
--- NOTE | 2020-04-30 02:48 | ER Document Report ---
ED Hip Pain/Injury - General Chief Complaint: Hip Pain Stated Complaint: HIP PAIN Time Seen by Provider: 04/30/20 00:21 Mode of Arrival: Wheelchair Information source: Patient Notes: 04/30/20 02:35 - ED Nursing Note by THALIA SHERWOOD Num: [id number] : 1975 Patient Age: [age] Y/O FEMALE WITH WITH HX OF RT KNEE ISSUES, PRESENTS REPORTING RT HIP PAIN. REPORTS THAT SHE WAS IN BED WHEN IF ALL STARTED YESTERDAY MORNING. DENIES TRAUMA. ED Medical Screen (RME) - General Chief Complaint: Abdominal Pain Stated Complaint: HIP PAIN Time Seen by Provider: 04/30/20 00:21 Mode of Arrival: Wheelchair Notes: Patient presents complaining of right hip pain. Patient states the pain started this evening and radiates to the right flank area and around to right lower side of abdomen. Patient states that occasionally she will feel faint. Patient denies any fever. Patient denies any chest pain symptoms. Patient has a history of hypertension COPD asthma and GERD. Patient denies any previous history of sciatic my notes 45-year-old female arrives with chief complaint of acute right hip pa in as she was laying in bed yesterday. Patient reports the pain radiates from her right hip to her right suprapubic area. She denies any overuse any vaginal discharge dysuria hematuria kidney stones fever chills cough cold. She has 7 children most of which are already out of the house and she has a 9-year-old that still remains in the house. No one has any coronavirus at this time. She denies any sore throat or trauma or abuse. Patient has full range of motion of her extremities and was much improved after she was given 1 hydrocodone tablet at triage. Patient arrives by EMS. TRAVEL OUTSIDE OF THE [place] IN LAST 30 DAYS: No - HPI Patient complains to provider of: Hip Occurred: Yesterday Where: Home Onset/Duration: Sudden, Persistent, Better Quality of pain: Achy Severity: Moderate Pain Level: 3 - Related Data Allergies/Adverse Reactions: vinagar Allergy (Uncoded 01/11/20 12:42) Hives Past Medical History - General Information source: Patient - Social History Smoking Status: Never Smoker Cigarette use (# per day): No Chew tobacco use (# tins/day): No Frequency of alcohol use: None Drug Abuse: None Lives with: Family Family History: Reviewed & Not Pertinent, Hypertension Patient has suicidal ideation: No Patient has homicidal ideation: No - Past Medical History Cardiac Medical History: Reports: Hx Hypertension Pulmonary Medical History: Reports: Hx Asthma, Hx Bronchitis, Hx Pneumonia Renal/ Medical History: Denies: Hx Peritoneal Dialysis GI Medical History: Reports: Hx Gastroesophageal Reflux Disease Psychiatric Medical History: Reports: Hx Anxiety, Hx Depression Past Surgical History: Reports: Hx Appendectomy, Hx Section - X2, Hx Hysterectomy, Hx Tubal Ligation - Immunizations Immunizations up to date: Yes Hx Diphtheria, Pertussis, Tetanus Vaccination: Yes Hx Pneumococcal Vaccination: 09/12/15 Review of Systems - Review of Systems Constitutional: See HPI, Fever EENT: No symptoms reported Cardiovascular: No symptoms reported Respiratory: No symptoms reported Gastrointestinal: No symptoms reported Genitourinary: No symptoms reported Female Genitourinary: No symptoms reported Musculoskeletal: See HPI, Joint pain, Muscle pain Skin: No symptoms reported Hematologic/Lymphatic: No symptoms reported Neurological/Psychological: No symptoms reported Physical Exam - Vital signs Vitals: Temp Pulse Resp BP Pulse Ox 99.1 F 110 H 24 H 120/85 95 04/29/20 23:39 04/29/20 23:39 04/29/20 23:39 04/29/20 23:39 04/29/20 23:39 Interpretation: Tachycardic, Tachypneic, Febrile - General General appearance: Appears well - HEENT Head: Normocephalic, Atraumatic Eyes: Normal Pupils: PERRL Nasal: Normal Mouth/Lips: Normal Mucous membranes: Normal Pharynx: Normal Neck: Normal - Respiratory Respiratory status: No respiratory distress Chest status: Nontender Breath sounds: Normal Chest palpation: Normal - Cardiovascular Rhythm: Regular Heart sounds: Normal auscultation Murmur: No - Abdominal Inspection: Normal Distension: No distension Bowel sounds: Normal Tenderness: Nontender Organomegaly: No organomegaly - Rectal Hemorrhoids: Other - deferred - Genitourinary [place]iman[place] exam: Other - deferred - Back Back: Normal - Extremities General upper extremity: Normal inspection General lower extremity: Other - Right hip pain on range of motion and palpation. Full pulses full capillary refill. No cords or positive Homans. - Neurological Neuro grossly intact: Yes Cognition: Normal Orientation: AAOx4 [place] Coma Scale Eye Opening: Spontaneous Valery Coma Scale Verbal: Oriented [place] Coma Scale Motor: Obeys Commands Valery Coma Scale Total: 15 Speech: Normal Motor strength normal: LUE, RUE, LLE, RLE Sensory: Normal - Psychological Associated symptoms: Normal affect - Skin Skin Temperature: Warm Skin Moisture: Dry Course - Vital Signs Vital signs: Temp Pulse Resp BP Pulse Ox 99.1 F 110 H 24 H 120/85 95 04/29/20 23:39 04/29/20 23:39 04/29/20 23:39 04/29/20 23:39 04/29/20 23:39 - Laboratory Result Diagrams: 04/30/20 00:32 04/30/20 00:32 Laboratory results interpreted by me: 04/30/20 04/30/20 04/30/20 00:32 00:32 01:05 Lymph % (Auto) 6.3 L [place] % (Auto) 1.1 L Seg Neutrophils % 92.3 H Sodium 136.9 L Glucose 163 H Urine Protein 30 H Ur Leukocyte Esterase TRACE H - Diagnostic Test Radiology reviewed: Reports reviewed Discharge - Discharge Clinical Impression: Hyperglycemia, Acute right hip pain Febrile Qualifiers: Fever type: unspecified Qualified Code(s): R50.9 - Fever, unspecified Condition: Good Disposition: HOME, SELF-CARE Additional Instructions: follow with pmd this week;return to ER if symptoms increase or persist; take medicines as directed encourage fluids and avoid using right hip if possible. Prescriptions: Ciprofloxacin HCl [Cipro 500 mg Tablet] 500 mg PO BID #6 tablet Fluconazole [Diflucan] 150 mg PO DAILY #1 tablet Chlorzoxazone [Parafon Forte Dsc 500 Mg Tablet] 500 mg PO BID PRN #20 tablet PRN Reason:
--- NOTE | 2020-04-30 04:06 | RADIOLOGY REPORT (SQ) ---
EXAM DESCRIPTION: XR HIP 2 OR MORE VIEWS COMPLETED DATE/TME: 04/30/2020 02:50 CLINICAL HISTORY: 45 years, Female, pain COMPARISON: None. NUMBER OF VIEWS: 3 TECHNIQUE: 3 views of the right hip and pelvis were obtained. LIMITATIONS: None. FINDINGS: There is no bone or joint abnormality. Incidental calcified pelvic phleboliths are noted. IMPRESSION: No significant finding copyright 2010 [employer]- All Rights Reserved
[2020-04-30] MEDS ORDERED: HYDROCODONE/ACETAMINOPHEN 5-325 MG (6 TAB/ER DISP) PO PRN (04:55)
[2020-04-30 05:11] VITALS: BP 134/81
--- NOTE | 2020-04-30 08:33 | EKG REPORT ---
SEVERITY:- BORDERLINE ECG - SINUS RHYTHM BORDERLINE T ABNORMALITIES, ANTERIOR LEADS : Confirmed by: Alhaji Magana 30-Apr-2020 08:33:17
== END 2020-04-30 05:48 | disposition home or self-care (01) ==
LOC: ER 23:32
DX: R73.9 Hyperglycemia, unspecified (principal); M25.551 Pain in right hip; M25.561 Pain in right knee; R50.9 Fever, unspecified; R10.9 Unspecified abdominal pain; R10.31 Right lower quadrant pain; M79.10 Myalgia, unspecified site; I10 Essential (primary) hypertension; J44.9 Chronic obstructive pulmonary disease, unspecified; Z79.899 Other long term (current) drug therapy; J45.909 Unspecified asthma, uncomplicated
CPT/HCPCS: 93005; 99285; 96360; 36415; 84703; 85025; 86431; 80053; 81001; 73502; 93010; J7030

== ENCOUNTER 2020-05-20 01:33 | Emergency (ER) | payer MEDICAID ==
[2020-05-20] MEDS ORDERED: NORMAL SALINE 1000 ML 1,000 ML IV ONE (01:41)
[2020-05-20] MEDS ORDERED: METHYLPREDNISOLONE INJ 125 MG/2 ML SDV IV ONE (01:41)
[2020-05-20] MEDS ORDERED: IPRATROPIUM/ALBUTEROL 0.5-2.5 MG/3 ML AMPUL NEB ONE (01:41)
[2020-05-20] MEDS: MAGNESIUM SULFATE/D5W 1 GM/100 ML RTUPB IV SCH ×2 (01:57→02:52)
--- NOTE | 2020-05-20 01:59 | ER Document Report ---
ED Respiratory Problem - General Chief Complaint: Asthma Exacerbation Stated Complaint: ASTHMA Time Seen by Provider: 05/20/20 01:36 Notes: Patient is a 45-year-old female that comes to the emergency department for chief complaint of difficulty breathing with wheezing and cough. She states she has had frequent asthma exacerbations recently, she states she saw her primary care provider recently and she has a referral to pulmonology because of this but this is pending. She finished her last burst of steroids about 7 days ago. She denies fevers, congestion, vomiting, or any other complaints other than the cough and wheezing. She stopped smoking 9 years ago. She denies any other medical history, she denies . TRAVEL OUTSIDE OF THE [place] IN LAST 30 DAYS: No - Related Data Allergies/Adverse Reactions: vinagar Allergy (Uncoded 01/11/20 12:42) Hives Past Medical History - General Information source: Patient - Social History Smoking Status: Former Smoker Frequency of alcohol use: None Drug Abuse: None Lives with: Family Family History: Reviewed & Not Pertinent, Hypertension - Past Medical History Cardiac Medical History: Reports: Hx Hypertension Pulmonary Medical History: Reports: Hx Asthma, Hx Bronchitis, Hx Pneumonia Renal/ Medical History: Denies: Hx Peritoneal Dialysis GI Medical History: Reports: Hx Gastroesophageal Reflux Disease Psychiatric Medical History: Reports: Hx Anxiety, Hx Depression Past Surgical History: Reports: Hx Appendectomy, Hx Section - X2, Hx Hysterectomy, Hx Tubal Ligation - Immunizations Immunizations up to date: Yes Hx Diphtheria, Pertussis, Tetanus Vaccination: Yes Hx Pneumococcal Vaccination: 09/12/15 Review of Systems - Review of Systems Constitutional: No symptoms reported EENT: No symptoms reported Cardiovascular: No symptoms reported Respiratory: See HPI Gastrointestinal: No symptoms reported Genitourinary: No symptoms reported Female Genitourinary: No symptoms reported Musculoskeletal: No symptoms reported Skin: No symptoms reported Hematologic/Lymphatic: No symptoms reported Neurological/Psychological: No symptoms reported Physical Exam - Vital signs Vitals: Temp Pulse Resp BP Pulse Ox 98.6 F 83 16 127/75 H 98 05/20/20 02:07 05/20/20 02:07 05/20/20 02:07 05/20/20 02:07 05/20/20 02:07 - Notes Notes: GENERAL: Alert, interacts well. No acute distress. HEAD: Normocephalic, atraumatic. EYES: Pupils equal, round, and reactive to light. Extraocular movements intact. ENT: Oral mucosa moist, tongue midline. Oropharynx unremarkable. Airway patent. NECK: Full range of motion. Supple. Trachea midline. No lymphadenopathy. LUNGS: Expiratory wheezes throughout. No labored breathing, speaks in full sentences, otherwise unremarkable. HEART: Regular rate and rhythm. No murmur EXTREMITIES: Moves all 4 extremities spontaneously. No edema, normal radial and dorsalis pedis pulses bilaterally. No cyanosis. BACK: no cervical, thoracic, lumbar midline tenderness. No saddle anesthesia, normal distal neurovascular exam. Moves all extremities in full range of motion. NEUROLOGICAL: Alert and oriented x3. Normal speech. Cranial nerves II through XII grossly intact. Strength 5/5 in all extremities. PSYCH: Normal affect, normal mood. SKIN: Warm, dry, normal turgor. No rashes or lesions noted. Course - Re-evaluation Re-evalutation: On initial evaluation patient with expiratory wheezes throughout. However she does not have labored breathing, hypoxia, tachypnea, or signs of distress. Chest x-ray unremarkable. On reevaluation after treatments including duo nebs, magnesium, IV fluids wheezing completely resolved. Patient with no current symptoms. Patient states she feels great and has no current complaints. Patient requesting refill of her inhaler, already has a spacer, still has albuterol nebulizer. She also has pulmonology follow-up pending. Discussed follow-up and return precautions, patient states understanding and agreement. - Vital Signs Vital signs: Temp Pulse Resp BP Pulse Ox 98.8 F 89 14 123/81 97 05/20/20 04:03 05/20/20 04:03 05/20/20 04:03 05/20/20 04:03 05/20/20 04:03 Discharge - Discharge Clinical Impression: Wheezing Asthma exacerbation Qualifiers: Asthma severity: moderate Asthma persistence: unspecified Qualified Code(s): J45.901 - Unspecified asthma with (acute) exacerbation Condition: Stable Disposition: HOME, SELF-CARE Additional Instructions: You have been evaluated and treated for an asthma exacerbation. Continue albuterol inhaler/nebulizer, take steroids as prescribed to completion, follow-up with primary care and pulmonology referral. Return if you worsen including difficulty breathing, developing fever, or any other concerning or worsening symptoms. Prescriptions: Prednisone [Deltasone 20 mg Tablet] 3 tab PO DAILY 5 Days #15 tablet Albuterol Sulfate [Proair HFA Inhalation Aerosol 8.5 gm MDI] 2 puff IH Q4H PRN #1 mdi PRN Reason: Forms: Return to Work
--- NOTE | 2020-05-20 02:36 | RADIOLOGY REPORT (SQ) ---
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 The lungs are clear. Heart is within normal limits for size. Pulmonary vascularity is within normal limits. IMPRESSION: No acute disease.
[2020-05-20 04:06] VITALS: BP 123/81
== END 2020-05-20 04:05 | disposition home or self-care (01) ==
LOC: ER 01:33
DX: J45.901 Unspecified asthma with (acute) exacerbation (principal); R05 Cough; I10 Essential (primary) hypertension; Z87.01 Personal history of pneumonia (recurrent); Z87.891 Personal history of nicotine dependence; Z91.018 Allergy to other foods
CPT/HCPCS: 94640; 99284; 96375; 96365; 96367; 71045; J2930; J3475; J7030

== ENCOUNTER 2020-06-17 05:37 | Emergency (ER) | payer MEDICAID ==
[2020-06-17] MEDS ORDERED: IPRATROPIUM/ALBUTEROL 0.5-2.5 MG/3 ML AMPUL NEB ONE (08:20)
[2020-06-17] MEDS ORDERED: DEXAMETHASONE SOD PHOS INJ 10 MG/1 ML VIAL IV ONE (08:21)
[2020-06-17] MEDS ORDERED: MAGNESIUM SULFATE/D5W 1 GM/100 ML RTUPB IV ONE (08:22)
--- NOTE | 2020-06-17 08:33 | ER Document Report ---
ED Respiratory Problem - General Chief Complaint: Shortness Of Breath Stated Complaint: DIFFICULTY BREATHING Time Seen by Provider: 06/17/20 08:15 Notes: CHIEF COMPLAINT: Asthma exacerbation HPI: 45-year-old female with asthma history woke up last night with shortness of breath and wheezing. States it feels like her typical asthma when it worsens. Use your inhaler 4 times at home without resolution of symptoms so came to the emergency department. No fever no other recent illness ROS: See HPI - all other systems were reviewed and are otherwise negative Constitutional: no fever Eyes: no drainage, no blurred vision ENT: no runny nose, no sore throat Cardiovascular: no chest pain Resp: + SOB, + cough GI: no vomiting, no diarrhea, no abdominal pain : no dysuria Integumentary: no rash Allergy: no hives Musculoskeletal: no extremity pain or swelling Neurological: no numbness/tingling, no weakness MEDICATIONS: I agree with the patient medications as charted by the RN. ALLERGIES: I agree with the allergies as charted by the RN. PAST MEDICAL HISTORY/PAST SURGICAL HISTORY: Reviewed and agree as charted by RN. SOCIAL HISTORY: Reviewed and agree as charted by RN. FAMILY HISTORY: No significant familial comorbid conditions directly related to patient complaint EXAM: Reviewed vital signs as charted by RN. CONSTITUTIONAL: Alert and oriented and responds appropriately to questions. Well-appearing; well-nourished HEAD: Normocephalic; atraumatic EYES: PERRL; Conjunctivae clear, sclerae non-icteric ENT: normal nose; no rhinorrhea; moist mucous membranes; pharynx without lesions noted, no uvula edema or deviation, no tonsillar hypertrophy, phonation normal NECK: Supple without meningismus; non-tender; no cervical lymphadenopathy, no masses CARD: RRR; no murmurs, no clicks, no rubs, no gallops; symmetric distal pulses RESP: Normal chest excursion without splinting or tachypnea; breath sounds noted to have expiratory wheezing in all lung mcqueen with poor air movement, no rhonchi, no rales, pulse oximetry 99% on room air not hypoxic ABD/GI: Normal bowel sounds; non-distended; soft, non-tender, no rebound, no gu arding; no palpable organomegaly or masses. BACK: The back appears normal and is non-tender to palpation, there is no CVA tenderness EXT: Normal ROM in all joints; non-tender to palpation; no cyanosis, no effusions, no edema SKIN: Normal color for age and race; warm; dry; good turgor; no acute lesions noted NEURO: Moves all extremities equally; Motor and sensory function intact PSYCH: The patient's mood and manner are appropriate. Grooming and personal hygiene are appropriate. MDM: 45-year-old female with asthma history presenting for what she believes is an asthma exacerbation. Will obtain baseline screening labs, chest x-ray which was ordered via triage process is already been completed. She used her inhaler 4 times at home will give continuous neb here Decadron as well as magnesium and reassess TRAVEL OUTSIDE OF THE [place] IN LAST 30 DAYS: No - Related Data Allergies/Adverse Reactions: vinagar Allergy (Uncoded 01/11/20 12:42) Hives Past Medical History - Social History Smoking Status: Current Some Day Smoker Chew tobacco use (# tins/day): No Frequency of alcohol use: None Drug Abuse: None Family History: Reviewed & Not Pertinent, Hypertension Patient has homicidal ideation: No - Past Medical History Cardiac Medical History: Reports: Hx Hypertension Pulmonary Medical History: Reports: Hx Asthma, Hx Bronchitis, Hx Pneumonia Renal/ Medical History: Denies: Hx Peritoneal Dialysis GI Medical History: Reports: Hx Gastroesophageal Reflux Disease Psychiatric Medical History: Reports: Hx Anxiety, Hx Depression Past Surgical History: Reports: Hx Appendectomy, Hx Section - X2, Hx Hysterectomy, Hx Tubal Ligation - Immunizations Immunizations up to date: Yes Hx Diphtheria, Pertussis, Tetanus Vaccination: Yes Hx Pneumococcal Vaccination: 09/12/15 Physical Exam - Vital signs Vitals: BP 132/76 H 06/17/20 05:41 Course - Re-evaluation Re-evalutation: 06/17/20 10:23 Patient still with some expiratory wheezing. Pulse oximetry 91% on room air in the room the patient is hunched down in the bed. Will have nursing ambulated with pulse ox and reassess she states she feels much better. Patient has pulm onology appointment at the end of the month 06/17/20 11:31 Patient was able to ambulate with nursing maintaining pulse oximetry of 96% on room air without significant dyspnea or worsened shortness of breath. Will discharge home on steroids, continue breathing treatments, follow-up PCP 06/17/20 11:33 EKG normal sinus rhythm with a ventricular rate of 66 WI 168 QT 424 QTC 445. Interpreted by emergency department physician. Normal EKG without ectopy - Vital Signs Vital signs: Temp Pulse Resp BP Pulse Ox 98.7 F 21 H 143/76 H 96 06/17/20 05:42 06/17/20 11:01 06/17/20 11:01 06/17/20 11:01 - Laboratory Result Diagrams: 06/17/20 09:00 06/17/20 09:00 Laboratory results interpreted by me: 06/17/20 06/17/20 09:00 09:00 RDW 15.3 H Eos % (Auto) 11.2 H Absolute Eos (auto) 0.9 H Total Protein 5.6 L Albumin 3.3 L Discharge - Discharge Clinical Impression: Asthma exacerbation Qualifiers: Asthma severity: moderate Asthma persistence: persistent Qualified Code(s): J45.41 - Moderate persistent asthma with (acute) exacerbation Condition: Stable Disposition: HOME, SELF-CARE Additional Instructions: 1. take the medications as prescribed 2. if you were prescribed an Albuterol inhaler, use it as instructed, 2 puffs every 4 hours as needed for cough/wheezing 3. call your primary care provider as soon as possible to schedule recheck appt. in the office. 4. return to the ED for any worsening condition, shortness of breath or continued fever that does not resolve with Motrin/Tylenol Prescriptions: Dexamethasone [Decadron 4 Mg Tablet] 4 mg PO DAILY #7 tablet Albuterol Sulfate [Proair HFA Inhalation Aerosol 8.5 gm MDI] 2 puff IH Q4H PRN #1 mdi PRN Reason:
--- NOTE | 2020-06-17 08:52 | RADIOLOGY REPORT (SQ) ---
EXAM DESCRIPTION: CHEST SINGLE VIEW IMAGES COMPLETED DATE/TIME: 06/17/2020 8:33 am REASON FOR STUDY: shortness of breath COMPARISON: 05/20/2020 EXAM PARAMETERS: NUMBER OF VIEWS: One view. TECHNIQUE: Single frontal radiographic view of the chest acquired. RADIATION DOSE: NA LIMITATIONS: None. FINDINGS: LUNGS AND PLEURA: No opacities, masses or pneumothorax. No pleural effusion. MEDIASTINUM AND HILAR STRUCTURES: No masses. Contour normal. HEART AND VASCULAR STRUCTURES: Heart normal in size. 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 Normal vasculature. BONES: No acute findings. HARDWARE: None in the chest. OTHER: No other significant finding. IMPRESSION: 1. No significant interval changes since the previous examination dated 05/20/2020. No a cute findings. TECHNICAL DOCUMENTATION: JOB ID: [id number] 2010 [employer]- All Rights Reserved Reading location - IP/workstation name: [email or web address]
[2020-06-17 09:32] LABS: ABSOLUTE BASOPHILS # (AUTO) 0.1 10^3/uL (0.0-0.2); ABSOLUTE EOSINOPHILS # (AUTO) 0.9 10^3/uL (0.0-0.6); ABSOLUTE LYMPHOCYTES (AUTO) 1.6 10^3/uL (0.5-4.7); ABSOLUTE MONOCYTES (AUTO) 0.4 10^3/uL (0.1-1.4); ABSOLUTE NEUT (AUTO) 4.7 10^3/uL (1.7-8.2); BASOPHILS % (AUTO) 0.7 % (0-2); EOSINOPHILS % (AUTO) 11.2 % (0-6); HEMOGLOBIN 13.2 g/dL (12.0-15.5); LYMPHOCYTES % (AUTO) 21.4 % (13-45); MEAN CORPUSCULAR HEMOGLOBIN 29.2 pg (27.0-33.4); MEAN CORPUSCULAR HGB CONC 34.8 g/dL (32.0-36.0); MEAN CORPUSCULAR VOLUME 84 fl (80-97); MONOCYTES % (AUTO) 5.6 % (3-13); PLATELET COUNT 265 10^3/uL (150-450); RED BLOOD COUNT 4.53 10^6/uL (3.72-5.28); RED CELL DISTRIBUTION WIDTH 15.3 % (11.5-14.0); SEGMENTED NEUTROPHILS % (AUTO) 61.1 % (42-78); TOTAL CELLS COUNTED % (AUTO) 100 %; WHITE BLOOD COUNT 7.7 10^3/uL (4.0-10.5)
[2020-06-17 09:55] LABS: ALBUMIN 3.3 g/dL (3.5-5.0); ALKALINE PHOSPHATASE 46 U/L (38-126); ANION GAP 6 (5-19); ASPARTATE AMINO TRANSFERASE 17 U/L (14-36); BILIRUBIN,DIRECT 0.2 mg/dL (0.0-0.4); BILIRUBIN,TOTAL 0.6 mg/dL (0.2-1.3); BLOOD UREA NITROGEN 8 mg/dL (7-20); CALCIUM 8.5 mg/dL (8.4-10.2); CARBON DIOXIDE 26 mmol/L (22-30); CHLORIDE 105 mmol/L (98-107); GLUCOSE 92 mg/dL (75-110); TOTAL PROTEIN 5.6 g/dL (6.3-8.2)
[2020-06-17 12:13] VITALS: BP 107/79
--- NOTE | 2020-06-17 17:32 | EKG REPORT ---
SEVERITY:- NORMAL ECG - SINUS RHYTHM : Confirmed by: Mildred Koch MD 17-Jun-2020 17:31:24
== END 2020-06-17 12:13 | disposition home or self-care (01) ==
LOC: ER 05:37
DX: J45.41 Moderate persistent asthma with (acute) exacerbation (principal); R06.02 Shortness of breath; F17.200 Nicotine dependence, unspecified, uncomplicated; I10 Essential (primary) hypertension; Z87.01 Personal history of pneumonia (recurrent); Z91.018 Allergy to other foods
CPT/HCPCS: 93005; 94640; 99285; 96375; 96365; 36415; 83735; 85025; 80053; 71045; 93010; J3475; J1100

== ENCOUNTER 2020-06-22 02:58 | Emergency (ER) | payer MEDICAID ==
[2020-06-22 03:04] VITALS: BP 112/84
== END 2020-06-22 04:30 | disposition left against medical advice (07) ==
LOC: ER 02:58
DX: Z53.21 Procedure and treatment not carried out due to patient leaving prior to being seen by health care provider (principal); M25.551 Pain in right hip

== ENCOUNTER 2020-08-18 22:03 | Emergency (ER) | payer MEDICAID ==
[2020-08-19 00:22] LABS: ABSOLUTE BASOPHILS # (AUTO) 0.1 10^3/uL (0.0-0.2); ABSOLUTE EOSINOPHILS # (AUTO) 0.7 10^3/uL (0.0-0.6); ABSOLUTE LYMPHOCYTES (AUTO) 0.6 10^3/uL (0.5-4.7); ABSOLUTE MONOCYTES (AUTO) 0.2 10^3/uL (0.1-1.4); ABSOLUTE NEUT (AUTO) 8.3 10^3/uL (1.7-8.2); BASOPHILS % (AUTO) 0.7 % (0-2); EOSINOPHILS % (AUTO) 7.4 % (0-6); HEMATOCRIT 38.5 % (36.0-47.0); HEMOGLOBIN 13.2 g/dL (12.0-15.5); LYMPHOCYTES % (AUTO) 6.3 % (13-45); MEAN CORPUSCULAR HEMOGLOBIN 28.9 pg (27.0-33.4); MEAN CORPUSCULAR HGB CONC 34.4 g/dL (32.0-36.0); MEAN CORPUSCULAR VOLUME 84 fl (80-97); PLATELET COUNT 319 10^3/uL (150-450); RED BLOOD COUNT 4.59 10^6/uL (3.72-5.28); RED CELL DISTRIBUTION WIDTH 13.7 % (11.5-14.0); SEGMENTED NEUTROPHILS % (AUTO) 83.6 % (42-78); TOTAL CELLS COUNTED % (AUTO) 100 %; WHITE BLOOD COUNT 9.9 10^3/uL (4.0-10.5)
[2020-08-19 00:25] LABS: INTERNATIONAL RATION (INR) 0.99; PROTHROMBIN TIME 13.3 SEC (11.4-15.4)
[2020-08-19 00:26] LABS: PARTIAL THROMBOPLASTIN TIME 28.9 SEC (23.5-35.8)
[2020-08-19 00:28] LABS: D-DIMER 0.35 ug/mL (0.00-0.50)
--- NOTE | 2020-08-19 00:43 | RADIOLOGY REPORT (SQ) ---
EXAM DESCRIPTION: XR CHEST 1 VIEW COMPLETED DATE/TME: 08/19/2020 00:01 CLINICAL HISTORY: 45 years, Female, cough SOB asthma hemoptysis COMPARISON: 06/17/2020 chest NUMBER OF VIEWS: 1 TECHNIQUE: Portable chest LIMITATIONS: None. FINDINGS: Heart size is stable. Lungs clear. No pneumothorax IMPRESSION: Negative chest copyright 2011 [employer]- All Rights Reserved
[2020-08-19 00:46] LABS: ALBUMIN 3.7 g/dL (3.5-5.0); ALKALINE PHOSPHATASE 48 U/L (38-126); ANION GAP 5 (5-19); ASPARTATE AMINO TRANSFERASE 17 U/L (14-36); BILIRUBIN,TOTAL 0.3 mg/dL (0.2-1.3); BLOOD UREA NITROGEN 9 mg/dL (7-20); CALCIUM 8.9 mg/dL (8.4-10.2); CARBON DIOXIDE 27 mmol/L (22-30); CHLORIDE 105 mmol/L (98-107); GLUCOSE 114 mg/dL (75-110); POTASSIUM 3.9 mmol/L (3.6-5.0); TOTAL PROTEIN 6.1 g/dL (6.3-8.2)
--- NOTE | 2020-08-19 01:02 | ER Document Report ---
ED General - General Chief Complaint: Shortness Of Breath Stated Complaint: BLOODY COUGH,ASTHMA Notes: 45-year-old female with asthma presents with approximately 2 to 3 weeks of cough and shortness of breath with cough productive of white/yellow sputum has been nonbloody aside from one episode of possible few drops of blood streaked sputum just prior to arrival. Patient has been using her albuterol inhaler frequently which temporarily relieves her symptoms but then they returned. Patient has been on any steroids recently, patient denies any sick contacts, fever, abdominal pain, diarrhea, dizziness, syncope, chest pain, cardiac history, lower extremity edema, DVT/PE/hypercoagulability history, exertional symptoms. Has had few episodes of posttussive emesis, but otherwise has been tolerating p.o. patient quit smoking approximately 10 years ago, denies drug use. TRAVEL OUTSIDE OF THE [place] IN LAST 30 DAYS: No - Related Data Allergies/Adverse Reactions: vinagar Allergy (Uncoded 01/11/20 12:42) Hives Home Medications: Liptor. BP med and H2 saeed Past Medical History - General Information source: Patient, Emergency Med Personnel - Social History Smoking Status: Former Smoker Chew tobacco use (# tins/day): No Frequency of alcohol use: None Drug Abuse: None Family History: Reviewed & Not Pertinent, Hypertension - Past Medical History Cardiac Medical History: Reports: Hx Hypertension Pulmonary Medical History: Reports: Hx Asthma, Hx Bronchitis, Hx Pneumonia Renal/ Medical History: Denies: Hx Peritoneal Dialysis GI Medical History: Reports: Hx Gastroesophageal Reflux Disease Psychiatric Medical History: Reports: Hx Anxiety, Hx Depression Past Surgical History: Reports: Hx Appendectomy, Hx Section - X2, Hx Hysterectomy, Hx Tubal Ligation - Immunizations Immunizations up to date: Yes Hx Diphtheria, Pertussis, Tetanus Vaccination: Yes Hx Pneumococcal Vaccination: 09/12/15 Review of Systems - Review of Systems Notes: REVIEW OF SYSTEMS: CONSTITUTIONAL : Denies fever, chills, or sweats. EENT: Denies recent sinus symptoms, denies throat pain CARDIOVASCULAR: Denies chest pain, SUJATHA RESPIRATORY: + cough, + shortness of breath. GASTROINTESTINAL: Denies abdominal pain, +nausea/vomiting. GENITOURINARY: Denies difficulty urinating, painful urination. FEMALE GENITOURINARY: Denies abnormal vaginal bleeding, vaginal discharge. MUSCULOSKELETAL: Denies neck pain, back pain. SKIN: Denies rash or skin lesions. HEMATOLOGIC : Denies easy bruising or bleeding. LYMPHATIC: Denies swollen, enlarged glands. NEUROLOGICAL: Denies headache, denies change in gait. PSYCHIATRIC: Denies anxiety or stress or depression. Physical Exam - Vital signs Vitals: Resp 27 H 08/18/20 22:09 - Notes Notes: PHYSICAL EXAMINATION: GENERAL: Mildly uncomfortable but well-appearing middle-aged woman sitting up in stretcher in no acute distress HEAD: Atraumatic, normocephalic. EYES: Pupils equal round and appropriate constriction, sclera anicteric, conjunctiva are normal. ENT: nares patent, moist mucous membranes. NECK: Normal range of motion, supple without lymphadenopathy LUNGS: Patient speaking in full sentences, no tripoding, managing secretions, good air movement, bilateral expiratory wheezing, very mild tachypnea HEART: Regular rate and rhythm without murmurs ABDOMEN: Soft, nontender, no guarding, no masses, no CVAT EXTREMITIES: Normal range of motion, no pitting or edema. No cyanosis. NEUROLOGICAL: Awake, alert, conversing appropriately, moves all extremities spontaneously. PSYCH: Normal mood, normal affect. SKIN: Warm, Dry, normal turgor, no rashes or lesions noted. Course - Re-evaluation Re-evalutation: 08/19/20 01:10 Patient with asthma and former smoking history with 2 to 3 weeks productive cough shortness of breath, patient given steroids and nebs by EMS and had negative Covid test in route. Symptoms likely represent asthma exacerbation but given prior smoking history and productive cough will give course of azithromycin, will send regular Covid PCR in case of false negative from EMS, patient feels significantly improved in ED and no signs of impending respiratory failure, appropriate for outpatient management with standing albuterol, burst course of steroids, and close PCP follow-up. Because of hemoptysis not able to rule out PE with PERC so send D-dimer which was negative which is sufficient to rule out PE in this patient with low pretest probability. Low suspicion of cardiac etiology but given EKG already obtained in triage I obtained the troponin which was negative. 08/19/20 01:38 Patient tolerating p.o. in ED, ready for discharge. - Vital Signs Vital signs: Temp Pulse Resp BP Pulse Ox 98.0 F 103 H 24 H 112/76 90 L 08/19/20 02:52 08/18/20 22:45 08/19/20 02:52 08/19/20 02:52 08/19/20 02:51 - Laboratory Result Diagrams: 08/19/20 00:04 08/19/20 00:04 Laboratory results interpreted by me: 08/19/20 08/19/20 00:04 00:04 Lymph % (Auto) 6.3 L [place] % (Auto) 2.0 L Eos % (Auto) 7.4 H Absolute Neuts (auto) 8.3 H Absolute Eos (auto) 0.7 H Seg Neutrophils % 83.6 H Sodium 136.9 L Glucose 114 H Total Protein 6.1 L - EKG Interpretation by Me Additional EKG results interpreted by me: 08/19/20 08:45 Sinus rhythm, no significant ST elevations or depressions, no significant T wave abnormalities Discharge - Discharge Clinical Impression: Asthma exacerbation Qualifiers: Asthma severity: moderate Asthma persistence: persistent Qualified Code(s): J45.41 - Moderate persistent asthma with (acute) exacerbation Disposition: HOME, SELF-CARE Additional Instructions: Patient was provided with discharge information including: As a person under investigation for Covid 19, the [place] department of Health and Human Services, division of public health advises you to adhere to the following guidance until your test results are reported to you. If your test result is positive, you will receive additional information from your provider and your local health department at that time. Remain at home until you are cleared by the health provider or public health authorities. Keep a log of visitors to your home, notify any visitors to your home of your isolation status. If you plan to move to a new address or leave the [facility], notify the local health department in your County. Call your doctor or seek care if you have an urgent medical need. Before seeking medical care, call ahead to get instructions from the provider before arriving at the medical office clinic or hospital. Notify them that you are being tested for the virus that causes Covid 19 so that arrangements can be made, as necessary, to prevent transmission to others in the healthcare setting. Next, notify the local health department in your county. If a medical emergency arises and you need to call 911, inform the first responders that you are being tested for the virus that causes Covid 19. Next, notify the local health department in your county. Asthma You have been diagnosed as having asthma. This is a condition where there is episodic tightness in the bronchial tubes. Allergies, infections, and polluted or cold air may be contributing factors. Emergency treatment of a severe asthma attack may include adrenaline shots, or bronchodilator aerosol. You may feel lightheaded, have a decreased exercise tolerance and a rapid pulse for an hour or two. Rest and get plenty of fluids. Home treatment of asthma requires bronchodilator drugs. These can be administered by injection, inhalation, or by mouth. Antibiotics and corticosteroids may be required for some patients. You should avoid chemical fumes, dusts, pollens, and exercising in very cold or dry air. If you smoke, stop!! If you develop a fever, increased wheezing, chest pain, or severe shortness of breath, you should contact the doctor immediately Take all medications as prescribed. Take albuterol every 4 hours over the next 4 days. Follow-up with your primary doctor within 3 days. If at any time you have any worsening shortness of breath, chest pain, dizziness, confusion, fainting, or any other worsening or alarming symptoms return to the emergency department immediately. Prescriptions: Azithromycin 250 mg PO QAM 4 Days #4 tablet Prednisone [Deltasone 20 mg Tablet] 3 tab PO DAILY 4 Days #12 tablet Albuterol Sulfate [Proair HFA Inhalation Aerosol 8.5 gm MDI] 2 puff IH Q4H 5 Days #1 mdi
[2020-08-19] MEDS ORDERED: AZITHROMYCIN 250 MG TABLET PO ONE (01:05)
[2020-08-19] MEDS ORDERED: ONDANSETRON HCL INJ/PF 4 MG/2 ML SDV IV ONE (01:05)
[2020-08-19 03:19] VITALS: BP 112/76
--- NOTE | 2020-08-19 17:43 | EKG REPORT ---
SEVERITY:- BORDERLINE ECG - SINUS RHYTHM BORDERLINE T ABNORMALITIES, ANTERIOR LEADS : Confirmed by: Alhaji Magana 19-Aug-2020 17:43:10
== END 2020-08-19 03:08 | disposition home or self-care (01) ==
LOC: ER 22:03
DX: J45.41 Moderate persistent asthma with (acute) exacerbation (principal); I10 Essential (primary) hypertension; Z20.828 Contact with and (suspected) exposure to other viral communicable diseases; Z90.710 Acquired absence of both cervix and uterus
CPT/HCPCS: 93005; 99285; 96374; 36415; 84703; 85025; 85610; 85730; 87635; 80053; 84484; 85379; 71045; 93010; Q0144; J2405; C9803

== ENCOUNTER 2020-09-15 23:50 | Emergency (ER) | payer MEDICAID ==
[2020-09-16] MEDS ORDERED: PREDNISONE 20 MG TABLET PO ONE (00:35)
[2020-09-16] MEDS ORDERED: IPRATROPIUM/ALBUTEROL 0.5-2.5 MG/3 ML AMPUL NEB ONE ×3 (00:35→05:39)
--- NOTE | 2020-09-16 00:37 | ER Document Report ---
ED Medical Screen (RME) - General Chief Complaint: Shortness Of Breath Stated Complaint: SHORTNESS OF BREATH,COUGH Time Seen by Provider: 09/16/20 00:30 Information source: Patient TRAVEL OUTSIDE OF THE [place] IN LAST 30 DAYS: No - HPI Patient complains to provider of: Short of breath, wheezing Notes: 09/16/20 00:36 Patient here with complaints of cough, shortness of breath, wheezing for last few days. Patient states she has chest tightness. She states that if she walks more than 3 feet she gets very short of breath. She has a history of asthma sta milka this feels like previous asthma exacerbations. She is been using her nebulizer at home without relief. No fever. No known Covid exposure. No abdominal pain. Non-smoker. Exam: No distress, nontoxic. Audible wheezing noted. Heart sounds normal. An initial examination was made on the patient as part of the triage process, and it was determined a more comprehensive evaluation was necessary. Initial orders were placed and patient was transferred to another provider in the ED who assumed care and finished evaluation and plan. - Related Data Allergies/Adverse Reactions: vinagar Allergy (Uncoded 01/11/20 12:42) Hives Past Medical History - Past Medical History Cardiac Medical History: Reports: Hx Hypertension Pulmonary Medical History: Reports: Hx Asthma, Hx Bronchitis, Hx Pneumonia Renal/ Medical History: Denies: Hx Peritoneal Dialysis GI Medical History: Reports: Hx Gastroesophageal Reflux Disease Psychiatric Medical History: Reports: Hx Anxiety, Hx Depression Past Surgical History: Reports: Hx Appendectomy, Hx Section - X2, Hx Hysterectomy, Hx Tubal Ligation - Immunizations Immunizations up to date: Yes Hx Diphtheria, Pertussis, Tetanus Vaccination: Yes Physical Exam - Vital signs Vitals: Temp Pulse BP Pulse Ox 98.0 F 89 132/80 H 93 09/16/20 00:00 09/16/20 00:00 09/16/20 00:00 09/16/20 00:00 Course - Vital Signs Vital signs: Temp Pulse Resp BP Pulse Ox 98.0 F 89 132/80 H 93 09/16/20 00:00 09/16/20 00:00 09/16/20 00:00 09/16/20 00:00
[2020-09-16 01:13] LABS: ABSOLUTE BASOPHILS # (AUTO) 0.1 10^3/uL (0.0-0.2); ABSOLUTE EOSINOPHILS # (AUTO) 1.3 10^3/uL (0.0-0.6); ABSOLUTE LYMPHOCYTES (AUTO) 2.3 10^3/uL (0.5-4.7); ABSOLUTE MONOCYTES (AUTO) 0.7 10^3/uL (0.1-1.4); ABSOLUTE NEUT (AUTO) 5.2 10^3/uL (1.7-8.2); BASOPHILS % (AUTO) 0.8 % (0-2); EOSINOPHILS % (AUTO) 13.4 % (0-6); HEMATOCRIT 37.8 % (36.0-47.0); LYMPHOCYTES % (AUTO) 24.1 % (13-45); MEAN CORPUSCULAR HEMOGLOBIN 28.6 pg (27.0-33.4); MEAN CORPUSCULAR HGB CONC 34.2 g/dL (32.0-36.0); MEAN CORPUSCULAR VOLUME 84 fl (80-97); MONOCYTES % (AUTO) 6.9 % (3-13); PLATELET COUNT 349 10^3/uL (150-450); RED BLOOD COUNT 4.53 10^6/uL (3.72-5.28); RED CELL DISTRIBUTION WIDTH 13.8 % (11.5-14.0); SEGMENTED NEUTROPHILS % (AUTO) 54.8 % (42-78); TOTAL CELLS COUNTED % (AUTO) 100 %; WHITE BLOOD COUNT 9.5 10^3/uL (4.0-10.5)
[2020-09-16 01:29] LABS: ALBUMIN 3.5 g/dL (3.5-5.0); ALKALINE PHOSPHATASE 48 U/L (38-126); ASPARTATE AMINO TRANSFERASE 17 U/L (14-36); BILIRUBIN,DIRECT 0.1 mg/dL (0.0-0.4); BILIRUBIN,TOTAL 0.3 mg/dL (0.2-1.3); BLOOD UREA NITROGEN 9 mg/dL (7-20); CALCIUM 8.8 mg/dL (8.4-10.2); CARBON DIOXIDE 28 mmol/L (22-30); CHLORIDE 106 mmol/L (98-107); GLUCOSE 87 mg/dL (75-110); POTASSIUM 4.1 mmol/L (3.6-5.0); TOTAL PROTEIN 6.3 g/dL (6.3-8.2)
[2020-09-16 01:41] LABS: ANION GAP 4 (5-19); NT PRO BNP 67 pg/mL (<125); TROPONIN I < 0.012 ng/mL
--- NOTE | 2020-09-16 01:44 | RADIOLOGY REPORT (SQ) ---
CLINICAL HISTORY: wheezing, sob, hx of asthma COMPARISON: 08/18/2020. 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 Lungs are clear without consolidation, atelectasis, mass or edema. There is no pleural effusion. There is no pneumothorax. There are no acute osseous findings. IMPRESSION: Clear lungs.
[2020-09-16 05:42] VITALS: BP 126/78
--- NOTE | 2020-09-16 05:44 | ER Document Report ---
ED Respiratory Problem - General Chief Complaint: Asthma Exacerbation Stated Complaint: SHORTNESS OF BREATH,COUGH Time Seen by Provider: 09/16/20 00:30 Mode of Arrival: Ambulatory Information source: Patient Notes: 45-year-old female presented to ED for complaint of shortness of breath and exa cerbation of asthma. She states she has been wheezing for the last several days. She states if she walks more than 3 feet she gets very short of breath. She states it feels just like her normal asthma exacerbation. She states she is supposed to follow-up with a lung specialist but has not been able to follow-up because she does not have a ride to where they are. She denies any fever or any Covid exposure. She states she does not smoke and has not smoked in a long time. Constitutional: Negative for fever. HENT: Negative for sore throat. Eyes: Negative for visual changes. Cardiovascular: Negative for chest pain. Respiratory: History of asthma with shortness of breath and tightness due to the asthma exacerbation. He is still wheezing after 1 breathing treatment and her prednisone. Gastrointestinal: Negative for abdominal pain, vomiting or diarrhea. Genitourinary: Negative for dysuria. Musculoskeletal: Negative for back pain. Skin: Negative for rash. Neurological: Negative for headaches, weakness or numbness. 10 point ROS negative except as marked above and in HPI. VITAL SIGNS: Within normal limits. GENERAL: No acute distress, non-toxic appearance. HEAD: Normal with no signs of head trauma. EYES: PERRLA, EOMI, conjunctiva normal, no discharge. EARS: Hearing grossly intact. NOSE: Normal. THROAT: Oropharynx is normal. NECK: Normal range of motion, no tenderness, supple, no lymphadenopathy, No adenopathy, no JVD. CHEST: Lung sounds are still tight with wheezes. She has had 1 breathing treatment. I have ordered a second breathing treatment and will reassess after that. CARDIAC: Regular rate and rhythm. VASCULAR: No Edema. Peripheral pulses normal and equal in all extremities. ABDOMEN: Normal and soft with no tenderness, no masses or pulsatile masses. GASTROINTESTINAL: Bowel sounds normal GENITOURINARY: Normal, No tenderness LYMPATHTIC: No lymphadenopathy noted. MUSCULOSKELETAL: Good range of motion of all major joints. Extremities without clubbing, cyanosis or edema. NEUROLOGICAL: Alert and oriented x 3. No focal sensory or strength deficits. Speech normal. Follows commands appropriately. PSYCHIATRIC: Normal Affect, judgement and mood. SKIN: Normal appearance with no rashes or lesions. TRAVEL OUTSIDE OF THE [place] IN LAST 30 DAYS: No - HPI Patient complains to provider of: Asthma, Cough, Short of breath - Due to asthma Onset: Other - History of asthma worse for the last 4 days Duration: Better - But still tight Initiating Event: URI Quality of pain: No pain Severity: None Pain Level: Denies Context: Hx asthma Short of Breath: Mild Cough: Nonproductive At home treatment: Bronchodilators Associated symptoms: Congestion, Cough, Short of breath, Wheezing Similar symptoms previously: Yes Recently seen / treated by doctor: No - Related Data Allergies/Adverse Reactions: vinagar Allergy (Uncoded 09/16/20 02:26) Hives Home Medications: ALB. NEBS Past Medical History - General Information source: Patient - Social History Smoking Status: Former Smoker Frequency of alcohol use: None Drug Abuse: None Lives with: Family Family History: Reviewed & Not Pertinent, Hypertension Patient has suicidal ideation: No Patient has homicidal ideation: No - Past Medical History Cardiac Medical History: Reports: Hx Hypertension Pulmonary Medical History: Reports: Hx Asthma, Hx Bronchitis, Hx Pneumonia EENT Medical History: Reports: None Neurological Medical History: Reports: None Endocrine Medical History: Reports: None Renal/ Medical History: Reports: None Malignancy Medical History: Reports: None GI Medical History: Reports: Hx Gastroesophageal Reflux Disease Musculoskeletal Medical History: Reports None Skin Medical History: Reports None Psychiatric Medical History: Reports: Hx Anxiety, Hx Depression Traumatic Medical History: Reports: None Infectious Medical History: Reports: None Past Surgical History: Reports: Hx Appendectomy, Hx Section - X2, Hx Hysterectomy, Hx Tubal Ligation - Immunizations Immunizations up to date: Yes Hx Diphtheria, Pertussis, Tetanus Vaccination: Yes Hx Pneumococcal Vaccination: 09/12/15 Physical Exam - Vital signs Vitals: Temp Pulse BP Pulse Ox 98.0 F 89 132/80 H 93 09/16/20 00:00 09/16/20 00:00 09/16/20 00:00 09/16/20 00:00 Course - Re-evaluation Re-evalutation: 09/16/20 08:58 No acute findings on chest x-ray. Patient was treated with 2 nebulizer treatments and prednisone 60 mg in the emergency room. She was then discharged home with prescription for prednisone. 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 Patient stated she was breathing much easier before discharge. - Vital Signs Vital signs: Temp Pulse Resp BP Pulse Ox 97.9 F 75 20 126/78 H 95 09/16/20 05:42 09/16/20 05:42 09/16/20 05:42 09/16/20 05:42 09/16/20 05:42 - Laboratory Results Result Diagrams: 09/16/20 01:01 09/16/20 01:01 Laboratory Results Interpreted: 09/16/20 09/16/20 01:01 01:01 Eos % (Auto) 13.4 H Absolute Eos (auto) 1.3 H Anion Gap 4 L Critical Laboratory Results Reviewed: No Critical Results - Radiology Results Critical Radiology Results Reviewed: No Critical Results Discharge - Discharge Clinical Impression: Asthma exacerbation Qualifiers: Asthma severity: mild Asthma persistence: intermittent Qualified Code(s): J45.21 - Mild intermittent asthma with (acute) exacerbation Condition: Stable Disposition: HOME, SELF-CARE Additional Instructions: ASTHMA: You have been diagnosed as having asthma. This is a condition where there is episodic tightness in the bronchial tubes. Allergies, infections, and polluted or cold air may be contributing factors. Emergency treatment of a severe asthma attack may include adrenaline shots, or bronchodilator aerosol. You may feel lightheaded, have a decreased exercise tolerance and a rapid pulse for an hour or two. Rest and get plenty of fluids. Home treatment of asthma requires bronchodilator drugs. These can be administered by injection, inhalation, or by mouth. Antibiotics and corticosteroids may be required for some patients. You should avoid chemical fumes, dusts, pollens, and exercising in very cold or dry air. If you smoke, stop!! If you develop a fever, increased wheezing, chest pain, or severe shortness of breath, you should contact the doctor immediately. STEROID MEDICATION: You have been given an injection of or oral medicine of the cortisone/steroid class. This medication is used to control inflammation or allergy. Stevenson t is usually only given for a short period of time, until the a cute process subsides. There are usually no side effects from short-term use of cortisone-like medications. Some persons feel an increased sense of well-being and are not sleepy at bedtime. Long-term use of cortisone medications is best avoided, unless required for a severe condition. If your condition does not remit, or relapses after the course of corticosteroid medication, you should consult your physician. INHALED BRONCHODILATORS: You have received treatment(s) of and/or prescription for an inhaled bronchodilator -- a medication which stimulates the airways in the lung to di late. This improves the flow of air in asthma, bronchitis, and emphysema. These medicines have some similarity to adrenaline, and can cause similar side effects: shakiness, racing heart, and a sense of nervousness. These side effects decrease with time. Contact your doctor if these side effects are severe. Do not over-use the medicine. Too-frequent use of the inhaler may make it ineffective. Call your doctor if the inhaler is not controlling your symptoms at the prescribed doses. FOLLOW-UP CARE: If you have been referred to a physician for follow-up care, call the physicians office for an appointment as you were instructed or within the next two days. If you experience worsening or a significant change in your symptoms, notify the physician immediately or return to the Emergency Department at any time for re-evaluation. Prescriptions: Prednisone [Deltasone 20 mg Tablet] 3 tab PO DAILY 5 Days #15 tablet Forms: Elevated Blood Pressure
--- NOTE | 2020-09-16 10:24 | EKG REPORT ---
SEVERITY:- NORMAL ECG - SINUS RHYTHM : Confirmed by: Alhaji Magana 16-Sep-2020 10:24:09
== END 2020-09-16 06:57 | disposition home or self-care (01) ==
LOC: ER 23:50
DX: J45.21 Mild intermittent asthma with (acute) exacerbation (principal); R06.02 Shortness of breath; R05 Cough; R09.81 Nasal congestion; Z88.8 Allergy status to other drugs, medicaments and biological substances; I10 Essential (primary) hypertension
CPT/HCPCS: 93005; 94640 ×2; 99285; 36415; 85025; 80053; 84484; 83880; 71046; 93010; J7512

== ENCOUNTER 2020-10-09 17:32 | Emergency (ER) | payer MEDICAID ==
[2020-10-09] MEDS ORDERED: LISINOPRIL 5 MG TABLET PO ONE (18:36)
[2020-10-09] MEDS ORDERED: ALBUTEROL SULFATE HFA (90 MCG/PUFF) 8 GM MDI (1 MDI/ER DISP) IH ONE (18:36)
[2020-10-09] MEDS ORDERED: LIDOCAINE 2% VISCOUS SOLN 15 ML UDCUP PO ONE (18:37)
[2020-10-09] MEDS ORDERED: LORAZEPAM 1 MG TABLET PO ONE ×2 (18:37→19:30)
[2020-10-09] MEDS ORDERED: MAG HYDROX/AL HYDROX/SIMETH SUSP 30 ML UDCUP PO ONE (18:37)
[2020-10-09] MEDS ORDERED: METOCLOPRAMIDE HCL ORAL SOLN 10 MG/10 ML UDCUP PO ONE (18:37)
--- NOTE | 2020-10-09 18:43 | ER Document Report ---
ED General - General Chief Complaint: Anxiety Stated Complaint: ANXIETY ATTACK Time Seen by Provider: 10/09/20 18:15 Notes: HPI: 45-year-old female presents today stating some increased anxiety since she ran out of her Ativan 2 days ago. She states she normally gets her Ativan from her primary care physician but she has trouble going there given the co-pay of $5 that she states is hard for her to afford. She gets her medications at regular pharmacy. She states she is also out of her albuterol inhaler, lisinopril, and omeprazole. Patient denies any headache, chest pain, abdominal pain, nausea, vomiting, auditory visual hallucinations, or thoughts of injuring herself or others. ROS: See HPI All other review of systems reviewed and otherwise negative Reviewed vital signs and nursing note as charted by RN. PHYSICAL EXAM: CONSTITUTIONAL: Alert and oriented and responds appropriately to questions. Well-appearing; well-nourished HEAD: Normocephalic; atraumatic EYES: PERRL; full extraocular range of motion; no nystagmus ENT: Normal nose; no rhinorrhea; moist mucous membranes; pharynx without lesions noted NECK: Supple without meningismus; non-tender; no cervical lymphadenopathy, no masses CARD: Regular rate and rhythm; no murmurs; symmetric distal pulses RESP: Normal chest excursion without splinting or tachypnea; breath sounds clear and equal bilaterally; very minimal scant wheezing ABD: Nontender to deep palpation of all 4 quadrants; no palpable organomegaly or masses BACK: The back appears normal and is non-tender to palpation EXT: Normal ROM in all joints; non-tender to palpation; no edema SKIN: No acute lesions noted NEURO: CN 2-12 intact; full strength to all extremities PSYCH: The patient's mood and manner are appropriate. Is polite and courteous TRAVEL OUTSIDE OF THE [place] IN LAST 30 DAYS: No - Related Data Allergies/Adverse Reactions: vinagar Allergy (Uncoded 09/16/20 02:26) Hives Past Medical History - Social History Smoking Status: Unknown if Ever Smoked Family History: Reviewed & Not Pertinent, Hypertension - Past Medical History Cardiac Medical History: Reports: Hx Hypertension Pulmonary Medical History: Reports: Hx Asthma, Hx Bronchitis, Hx Pneumonia Renal/ Medical History: Denies: Hx Peritoneal Dialysis GI Medical History: Reports: Hx Gastroesophageal Reflux Disease Psychiatric Medical History: Reports: Hx Anxiety, Hx Depression Past Surgical History: Reports: Hx Appendectomy, Hx Section - X2, Hx Hysterectomy, Hx Tubal Ligation - Immunizations Immunizations up to date: Yes Hx Diphtheria, Pertussis, Tetanus Vaccination: Yes Hx Pneumococcal Vaccination: 09/12/15 Course - Re-evaluation Re-evalutation: 10/09/20 18:44 Given the above history and physical examination in this polite courteous female no acute distress, requesting anxiety medications and medication refills, with no suicidal or homicidal ideations, I will refill the patient's prescriptions and provide a small dose of Ativan here. Patient states she is not driving. Patient does have a primary care physician. Given that the patient does have Medicaid I will helpful follow-up with an outpatient psychologic resource center for further evaluation and treatment. - Laboratory Results Critical Laboratory Results Reviewed: No Critical Results - Radiology Results Critical Radiology Results Reviewed: No Critical Results Discharge - Discharge Clinical Impression: Anxiety reaction, Non compliance w medication regimen Condition: Good Disposition: HOME, SELF-CARE Additional Instructions: Come back immediately with any increased anxiety, thoughts of injuring himself or others, cough or shortness of breath, or any other acute problems. Please take your medications as prescribed. Please follow-up with your primary care physician. Please make sure that you follow-up with the outpatient resources we have provided to help deal with your anxiety. Prescriptions: Lorazepam [Ativan 0.5 mg Tablet] 0.5 mg PO Q6 #12 tab Omeprazole 40 mg PO DAILY #30 capsule. Lisinopril [Prinivil 10 mg Tablet] 10 mg PO DAILY 30 Days #30 tablet Albuterol Sulfate [Proventil 0.5% Neb 2.5 mg/0.5 ml Vial.neb] 2.5 mg NEB Q8H PRN #12 vial.neb PRN Reason:
[2020-10-09 19:41] VITALS: BP 140/82
== END 2020-10-09 19:30 | disposition home or self-care (01) ==
LOC: ER 17:32
DX: F41.1 Generalized anxiety disorder (principal); I10 Essential (primary) hypertension; J45.909 Unspecified asthma, uncomplicated; Z91.14 Patient's other noncompliance with medication regimen; Z91.018 Allergy to other foods
CPT/HCPCS: 99283; J3490 ×5